=== PATIENT | female | born 1955 | race Caucasian/White ===

== ENCOUNTER 2016-09-06 13:37 | Inpatient (IN) | payer MEDICARE, OTHER ==
[~2016-09-06] VITALS: Ht 170.2 cm; Wt 74.5 kg
[2016-09-06] VITALS (7 sets, daily range): BP systolic 115–140; BP diastolic 60–82; PULSE 85–109; RESP 16–18; TEMP 97.9–98.4; O2SAT 95–98
[~2016-09-06 13:37] MED LIST: APIX5TAB PO; COQ-100C2 PO; HYDR12.57 PO; KRIL300C3 PO; LEVO150T7 PO; METF500T PO; MULTCAP PO; PLAQ200T PO; SIMV20TA PO; VALA1TAB PO
[2016-09-06] MEDS ORDERED: BUPR150XL PO (14:00)
[2016-09-06] MEDS ORDERED: PLAV75TA29 PO (14:00)
[2016-09-06] MEDS ORDERED: [UNRECOGNIZED DRUG - REMARK] PO (14:02)
[2016-09-06] MEDS ORDERED: SODIUM CHLORIDE 0.9% FLUSH 5 ML FLUSH IVF PRN (14:30)
[2016-09-06 14:39] LABS: AUTOMATED NEUTROPHIL # 4.3 TH/MM3 (1.8-7.7); BASOPHIL % 0.7 % (0.0-2.0); EOSINOPHIL # 0.1 TH/MM3 (0-0.4); EOSINOPHIL % 2.1 % (0.0-4.0); HEMO FLAGS DIFF FINAL; LYMPH % 23.8 % (9.0-44.0); LYMPHOCYTE # 1.5 TH/MM3 (1.0-4.8); MEAN CORPUSCULAR HEMOGLOBIN 31.6 PG (27.0-34.0); MEAN CORPUSCULAR HGB CONC 33.6 % (32.0-36.0); MONO % 8.4 % (0.0-8.0); PLATELET COUNT 309 TH/MM3 (150-450); RED BLOOD COUNT 4.67 MIL/MM3 (4.00-5.30); RED CELL DISTRIBUTION WIDTH 12.6 % (11.6-17.2); WHITE BLOOD COUNT 6.4 TH/MM3 (4.0-11.0)
[2016-09-06 14:52] LABS: POTASSIUM 3.7 MEQ/L (3.5-5.1)
[2016-09-06 14:56] LABS: BICARBONATE 25.9 MEQ/L (21.0-32.0)
[2016-09-06] MEDS ORDERED: LORazepam 2 MG/ML VIAL IV PUSH ONE (15:00)
--- NOTE | 2016-09-06 15:03 | PD ---
HPI . Left lower extremity pain and swelling Chief Complaint: Musculoskeletal Complaint Time Seen by Provider: 14:20 Travel History International Travel<30 days: No Contact w/Intl Traveler<30days: No Traveled to known affect area: No History of Present Illness HPI The patient presents with the acute onset of left leg pain. Her medical history is significant for previous arterial and venous thrombosis. She reports that she underwent a surgical procedure at the [facility] in July to both lower extremities to remove clot and improve blood flow. She reports that she had been on Elavil was prior to the procedure but was changed to Plavix following the procedure. She does not take aspirin. She does admit to some chest pain and shortness of breath. She states that she has been having these symptoms since the surgery in July. PFSH Past Medical History Hx Anticoagulant Therapy: Yes (PLAVIX) Arthritis: Yes Asthma: Yes Atrial Fibrillation: Yes Autoimmune Disease: Yes (LUPUS) Blood Disorders: No Anxiety: Yes Depression: Yes Heart Rhythm Problems: Yes Cancer: Yes (HX OF CERVICAL CANCER AND OVARIAN CANCER, SKIN) Cardiac Catheterization: Yes Cardiovascular Problems: Yes (CAD, ID X 4, THREE CARDIAC STENTS) High Cholesterol: Yes Chemotherapy: No Chest Pain: Yes Congestive Heart Failure: Yes COPD: Yes Cerebrovascular Accident: Yes (x4) Coronary Artery Disease: Yes Diabetes: Yes Patient Takes Glucophage: Yes Diminished Hearing: No Endocrine: Yes Gastrointestinal Disorders: Yes (LIVER FAILURE DUE MEDS ) GERD: Yes Genitourinary: No Headaches: Yes Hepatitis: Yes (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) Hiatal Hernia: Yes Hypertension: Yes Immune Disorder: Yes (LUPUS FIBROMYALGIA) Implanted Vascular Access Dvce: Yes Musculoskeletal: Yes Neurologic: Yes Psychiatric: Yes (ADD) Reproductive: No Respiratory: Yes (ASTHMA, 02/28/07 STOPPED SMOKING) Migraines: Yes Myocardial Infarction: Yes (X 3) Radiation Therapy: No Seizures: No Sleep Apnea: No Thyroid Disease: Yes (HYPO) Triglycerides - High: Yes Ulcer: Yes Tetanus Vaccination: > 5 Years Influenza Vaccination: Yes Menopausal: Yes : 5 Para: 2 Miscarriage: 3 : 0 Past Surgical History Abdominal Surgery: Yes (lap marnie liver bx) Appendectomy: Yes Body Medical Devices: X3 CARDIAC STENTS AND MIGUEL LOWER EXT. STENTS Cardiac Surgery: Yes (x3 cardiac stents) Cholecystectomy: Yes Coronary Artery Bypass Graft: No Coronary Stent: Yes (X7) Ear Surgery: No Endocrine Surgery: No Eye Surgery: Yes (MIGUEL. UPPER BLEPHAROPLASTY) Genitourinary Surgery: Yes Gynecologic Surgery: Yes (hysterectomy) Hysterectomy: Yes Neurologic Surgery: Yes (lower back L4-5, S1 X 3) Oral Surgery: Yes (tonsillectomy) Pacemaker: No Thoracic Surgery: No Tonsillectomy: Yes Other Surgery: Yes (LEFT LEG BYPASS) Family History Family Myocardial Infarction: Yes Social History Alcohol Use: Yes (rarely) Tobacco Use: No Substance Use: No Allergies-Medications (Allergen,Severity, Reaction): Coded Allergies: Benzocaine (Verified Allergy, Severe, SHORTNESS OF BREATH - "CHANDU", ) Codeine (Verified Allergy, Severe, ITCHY, 09/06/16) Iodinated Contrast Media (Verified Allergy, Severe, SOB, 09/06/16) Iodine (Verified Allergy, Severe, SOB, 09/06/16) IV pt states anaphylaxis Lidocaine (Verified Allergy, Severe, Shortness of Breath, 09/06/16) Lisinopril (Verified Allergy, Severe, causes liver failure, 09/06/16) Lortab (Verified Allergy, Severe, ITCH, 09/06/16) pt states oral injectable type causes anaphylaxis Lovastatin (Verified Allergy, Severe, LIVER FAILURE, 09/06/16) Morphine (Verified Allergy, Severe, ITCHY, 09/06/16) Novocain (Verified Allergy, Severe, Anaphylaxis, 09/06/16) Tricor (Verified Allergy, Severe, Cough, 09/06/16) Tylenol #3 (Verified Allergy, Severe, Itching, 09/06/16) Reported Meds & Prescriptions Reported Meds & Active Scripts Active Reported [Chf] 1 Tab PO BID Wellbutrin Xl 24 HR (Bupropion HCl) 150 Mg Tab 3 Tab PO DAILY Plavix (Clopidogrel Bisulfate) 75 Mg Tab 75 Mg PO DAILY Hydrochlorothiazide 12.5 Mg Cap 12.5 Mg PO DAILY Plaquenil (Hydroxychloroquine Sulfate) 200 Mg Tab 200 Mg PO DAILY Take with food Krill Oil [place]-3 300 mg (Krill Oil) 1 Cap Cap 300 Mg PO DAILY Levothyroxine (Levothyroxine Sodium) 150 Mcg Tab 150 Mcg PO DAILY Simvastatin 20 Mg Tab 20 Mg PO DAILY Valacyclovir (Valacyclovir HCl) 1 Gm Tab 1,000 Mg PO DAILY Multi For Her (Multiple Vitamins W/ Minerals) 1 Cap Cap 1 Tab PO DAILY Metformin (Metformin HCl) 500 Mg Tab 500 Mg PO DAILY With a meal Coq-10 (Coenzyme Q10 (Ubidecarenone)) 100 Mg Cap 100 Mg PO DAILY Review of Systems Except as stated in HPI: all other systems reviewed are Neg General / Constitutional: No: Fever, Chills Cardiovascular: Positive: Chest Pain or Discomfort Respiratory: Positive: Shortness of Breath Musculoskeletal: Positive: Myalgias, Edema Hematologic/Lymphatic: Positive: Easy Bruising Physical Exam Narrative GENERAL: This is an anxious appearing woman who is otherwise in no acute distress. SKIN: Warm and dry. She has some scattered bruising to the lower extremities. HEAD: Atraumatic. Normocephalic. EYES: Pupils equal and round. ENT: No nasal bleeding or discharge. Mucous membranes pink and moist. NECK: Trachea midline. CARDIOVASCULAR: Regular rate and rhythm. Mild sinus tachycardia at about 105- 110. Equal distal pulses. RESPIRATORY: No accessory muscle use. GASTROINTESTINAL: Abdomen soft, non-tender, nondistended. MUSCULOSKELETAL: No obvious deformities. No edema. NEUROLOGICAL: Awake and alert. No obvious cranial nerve deficits. Motor grossly within normal limits. Normal speech. PSYCHIATRIC: Appropriate mood and affect; insight and judgment normal. Anxious. Data Data Last Documented VS Vital Signs Date Time Temp Pulse Resp B/P Pulse Ox O2 Delivery O2 Flow Rate FiO2 09/06/16 15:36 96 17 140/65 98 Room Air 09/06/16 13:42 97.9 Orders Us Leg Venous Doppler (09/06/16 14:20) Complete Blood Count With Diff (09/06/16 14:20) Basic Metabolic Panel (Bmp) (09/06/16 14:20) Iv Access Insert/Monitor (09/06/16 14:20) Ecg Monitoring (09/06/16 14:20) Oximetry (09/06/16 14:20) Oxygen Administration (09/06/16 14:20) Sodium Chloride 0.9% Flush (Ns Flush) (09/06/16 14:30) Lorazepam Inj (Ativan Inj) (09/06/16 15:00) Labs Laboratory Tests Test 09/06/16 14:30 White Blood Count 6.4 TH/MM3 Red Blood Count 4.67 MIL/MM3 Hemoglobin 14.8 GM/DL Hematocrit 44.0 % Mean Corpuscular Volume 94.0 FL Mean Corpuscular Hemoglobin 31.6 PG Mean Corpuscular Hemoglobin 33.6 % Concent Red Cell Distribution Width 12.6 % Platelet Count 309 TH/MM3 Mean Platelet Volume 7.8 FL Neutrophils (%) (Auto) 65.0 % Lymphocytes (%) (Auto) 23.8 % Monocytes (%) (Auto) 8.4 % Eosinophils (%) (Auto) 2.1 % Basophils (%) (Auto) 0.7 % Neutrophils # (Auto) 4.3 TH/MM3 Lymphocytes # (Auto) 1.5 TH/MM3 Monocytes # (Auto) 0.5 TH/MM3 Eosinophils # (Auto) 0.1 TH/MM3 Basophils # (Auto) 0.0 TH/MM3 CBC Comment DIFF FINAL Differential Comment Sodium Level 142 MEQ/L Potassium Level 3.7 MEQ/L Chloride Level 107 MEQ/L Carbon Dioxide Level 25.9 MEQ/L Anion Gap 9 MEQ/L Blood Urea Nitrogen 12 MG/DL Creatinine 0.99 MG/DL Estimat Glomerular Filtration 57 ML/MIN Rate Random Glucose 122 MG/DL Calcium Level 8.9 MG/DL MDM Medical Decision Making Medical Screen Exam Complete: Yes Emergency Medical Condition: Yes Medical Record Reviewed: Yes (this patient has had significant cardiovascular problems. She has had a previous stroke. She has also had previous coronary artery disease and is status post stent placement. She has had peripheral vascular disease and is status post several surgical procedures for that. She was most recently seen by Dr. Greenberg, hematology oncology, on January 10, 2016. His plan at that time was to continue lifelong anticoagulation probably with Eliquis.) Differential Diagnosis Differential diagnosis of leg pain includes but is not limited to lumbar radiculopathy, arthritis, myalgias, DVT. Narrative Course Patient presents for evaluation of leg pain. She is specifically worried about DVT or arterial occlusion. Ultrasound of her left lower extremity was ordered. Because of her complaint of chest pain and shortness of breath for the past month or so, I also ordered a CT for PE. However, the patient has anaphylaxis to dye. That study was canceled. We will start with the ultrasound and go from there. The patient was noted to be quite anxious. I suspect that her chest pain and shortness of breath is probably related to anxiety. Her initial respiratory rate was 16 with an oxygen saturation of 98%. CBC & BMP Diagram 09/06/16 14:30 Ultrasound is negative for DVT. This patient has had some significant arterial clots in the past. She has anaphylaxis to IV dye. She states that she is is generally premedicated with steroids for 12 hours and then Benadryl 2 hours prior to a dye study. I will discuss the case with the physician who is balloon sander for her primary physician to come up with a plan. Care is being signed out to Dr. Uriarte pending disposition. Diagnosis Primary Impression: Left leg pain Condition: Stable Nica Muhammad MD Sep 06, 2016 15:03
--- NOTE | 2016-09-06 15:25 | RADHPO ---
EXAM DATE/TIME: 09/06/2016 19:41 [facility] COMPARISON: No previous studies available for comparison. INDICATIONS : Left leg pain. MEDICAL HISTORY : Myocardial infarction. Hypercholesterolemia. Hypertension. Hypothyroidism. CVA. Coroanry artery di sease. Congetive heart failure. Atrial fibrillation. COPD. GERD. Diabetes. Cervical, ovarian and ski n cancer. Lupus. SURGICAL HISTORY : Tonsillectomy. Cholecystectomy. Appendectomy. Spinal surgery. Coronary stents. Cardiac catheterizati on. Liver biopsy. Hysterectomy. Left leg bypass. ENCOUNTER: Initial ACUITY: 1 day PAIN SCORE: 4/10 LOCATION: Left leg. TECHNIQUE: Venous ultrasound of the leg was performed from the inguinal ligament to the proximal calf. Real-zaira e, color Doppler and spectral tracing, compression and augmentation techniques were used. FINDINGS: There is normal compressibility of the deep venous system from the inguinal region to the proximal ca lf. No echogenic clot is seen in the lumen of the common femoral, femoral, popliteal, and posterior tibial veins. There is a normal response of the venous system to proximal and distal augmentation an d respiration. CONCLUSION: No DVT in the left leg. Bill Joshi MD on September 06, 2016 at 15:23 Board Certified Radiologist. This report was verified electronically.
[2016-09-06] MEDS ORDERED: CILO100T PO (16:33)
--- NOTE | 2016-09-06 16:43 | PD ---
Physical Exam Date Seen by Provider: Sep 06, 2016 Time Seen by Provider: 16:36 Narrative This 61-year-old female complaining of pain in her left foot. This pain started this morning and seems to be getting progressively worse. The foot is feeling cold. It hurts her to walk on it. She has a history of multiple vascular problems. She has had arterial occlusions in her legs as well as DVT. She has a history of a stroke. She has been on Coumadin and Eliquis in the past. She is currently on Plavix. She was seen initially by Dr. Muhammad. An ultrasound for DVT was negative. The patient has a history of anaphylaxis to contrast dye. Apparently when she was initially seen in the ER she was noted to have pulses on the foot though the foot was cooler on the left than the right. I went to see the patient and have noticed the change in temperature. I am unable to obtain dorsalis pedal and posterior tibial pulses by palpation or with the Doppler. I am able to obtain a a popliteal and femoral pulse. She is able to wiggle the toes. I have discussed the case with Dr. Mary and he asked that she be transferred to [facility] to his service. We will initiate heparin drip without bolus. I have ordered pain medication. I have also we'll initiate Solu-Medrol for premedication in the event she gets contrast material.. This is a potentially limb threatening episode so I'm giving the Solu-Medrol intravenously as opposed to the oral prednisone. Data Data Last Documented VS Vital Signs Date Time Temp Pulse Resp B/P Pulse Ox O2 Delivery O2 Flow Rate FiO2 09/06/16 15:36 96 17 140/65 98 Room Air 09/06/16 13:42 97.9 Orders Us Leg Venous Doppler (09/06/16 14:20) Complete Blood Count With Diff (09/06/16 14:20) Basic Metabolic Panel (Bmp) (09/06/16 14:20) Iv Access Insert/Monitor (09/06/16 14:20) Ecg Monitoring (09/06/16 14:20) Oximetry (09/06/16 14:20) Oxygen Administration (09/06/16 14:20) Sodium Chloride 0.9% Flush (Ns Flush) (09/06/16 14:30) Lorazepam Inj (Ativan Inj) (09/06/16 15:00) Electrocardiogram (09/06/16 16:16) Chest, Single Ap (09/06/16 16:16) Prothrombin Time / Inr (Pt) (09/06/16 16:19) Act Partial Throm Time (Ptt) (09/06/16 16:19) Admit Order (Ed Use Only) (09/06/16 16:31) Labs Laboratory Tests Test 09/06/16 14:30 White Blood Count 6.4 TH/MM3 Red Blood Count 4.67 MIL/MM3 Hemoglobin 14.8 GM/DL Hematocrit 44.0 % Mean Corpuscular Volume 94.0 FL Mean Corpuscular Hemoglobin 31.6 PG Mean Corpuscular Hemoglobin 33.6 % Concent Red Cell Distribution Width 12.6 % Platelet Count 309 TH/MM3 Mean Platelet Volume 7.8 FL Neutrophils (%) (Auto) 65.0 % Lymphocytes (%) (Auto) 23.8 % Monocytes (%) (Auto) 8.4 % Eosinophils (%) (Auto) 2.1 % Basophils (%) (Auto) 0.7 % Neutrophils # (Auto) 4.3 TH/MM3 Lymphocytes # (Auto) 1.5 TH/MM3 Monocytes # (Auto) 0.5 TH/MM3 Eosinophils # (Auto) 0.1 TH/MM3 Basophils # (Auto) 0.0 TH/MM3 CBC Comment DIFF FINAL Differential Comment Prothrombin Time 10.7 SEC Prothromb Time International 1.0 RATIO Ratio Activated Partial 26.2 SEC Thromboplast Time Sodium Level 142 MEQ/L Potassium Level 3.7 MEQ/L Chloride Level 107 MEQ/L Carbon Dioxide Level 25.9 MEQ/L Anion Gap 9 MEQ/L Blood Urea Nitrogen 12 MG/DL Creatinine 0.99 MG/DL Estimat Glomerular Filtration 57 ML/MIN Rate Random Glucose 122 MG/DL Calcium Level 8.9 MG/DL [facility] Medical Record Reviewed: Yes Supervised Visit with SHIRAZ: No Differential Diagnosis Differential includes recurrent arterial occlusion, DVT Narrative Course Ultrasound is negative for DVT. Patient initially had a pulse but I cannot feel pulses now on the foot is cold. This is suspicious for an arterial occlusion. We are unable to do a CTA at this time because of her contrast allergy. I have spoken with vascular surgery and they've accepted the patient to the main hospital Diagnosis Primary Impression: Left leg pain Additional Impression: arterial occlusion left leg Admitting Information Admitting Physician Requests: Admit Condition: Stable Avinash Uriarte MD Sep 06, 2016 16:43
[2016-09-06] MEDS: SODIUM CHLOR 0.9% 1000 ML INJ 1,000 ML IV SCH (16:44)
[2016-09-06] MEDS ORDERED: HEPARIN-D5W INJ 250 ML IV SCH (16:45)
[2016-09-06] MEDS ORDERED: HYDROmorphone HCL PF 1 MG/ML VIAL IV PUSH ONE (16:45)
[2016-09-06] MEDS ORDERED: diphenhydrAMINE HCL 50 MG/ML VIAL IV PUSH ONE (16:45)
[2016-09-06] MEDS ORDERED: ONDANSETRON HCL 4 MG/2 ML VIAL IV PUSH ONE (16:45)
[2016-09-06] MEDS ORDERED: methylPREDNISolone SOD SUCC 40 MG/1 ML VIAL IV PUSH ONE (16:45)
--- NOTE | 2016-09-06 16:57 | RADHPO ---
EXAM DATE/TIME: 09/06/2016 16:39 [facility] COMPARISON: No previous studies available for comparison. INDICATIONS : Shortness of breath. MEDICAL HISTORY : Hypertension. Myocardial infarction. Hypercholesterolemia. Hypothyroidism, CVA, CAD, CHF, AFIB, C OPD, GERD, Diabetes, Cervical, ovarian, and skin cancer, Lupus SURGICAL HISTORY : Tonsillectomy. Cholecystectomy. Appendectomy. Spinal surgery, Heart stent, Liver biopsy, Hysterectomy , Left leg bypass ENCOUNTER: Initial ACUITY: 1 day PAIN SCORE: 4/10 LOCATION: Bilateral chest FINDINGS: A single view of the chest demonstrates the lungs to be symmetrically aerated without evidence of mas s, infiltrate or effusion. The cardiomediastinal contours are unremarkable. Osseous structures are intact. CONCLUSION: No acute disease. Brock Liu MD FACR on September 06, 2016 at 16:55 Board Certified Radiologist. This report was verified electronically.
[2016-09-06 17:15] LABS: APTT (PATIENT) 26.2 SEC (24.3-30.1); PROTHROMBIN TIME - PATIENT 10.7 SEC (9.8-11.6)
[2016-09-06] MEDS ORDERED: SODIUM CHLORIDE 0.9% FLUSH 5 ML FLUSH IV FLUSH PRN (21:15)
--- NOTE | 2016-09-06 21:16 | HHI.HP ---
History of Present Illness Chief Complaint: L foot pain History of Present Illness 61 yo female with multiple vascular and endovascular procedures for PAD, most recently in Jul when she had LLE revascularization (endo) for "5 hours" . She was getting ready for work this morning and had L foot pain. Motor intact. Presented through ED with pain. Past/Family/Social History Past Medical History PAD CVOD with last CVA 10 years ago CAD with last AL in her 30's Past Surgical History marnie mastectomy Home Medications Reported Medications Cilostazol 100 Mg [id number] Mg PO BID Ref 0 09/06/16 Bupropion HCl ER 24 HR (Wellbutrin Xl 24 HR)150 Mg Tab3 Tab PO DAILY Ref 0 09/06/16 Clopidogrel (Plavix)75 Mg Tab75 Mg PO DAILY #30 TAB Ref 0 09/06/16 Hydrochlorothiazide 12.5 Mg Cap12.5 Mg PO DAILY #30 CAP Ref 0 06/18/16 Hydroxychloroquine (Plaquenil)200 Mg [id number] Mg PO DAILY #30 TAB Ref 0 Take with food 06/18/16 Krill Oil (Krill Oil [employer]-3 300 mg)1 Cap [id number] Mg PO DAILY 06/18/16 Levothyroxine 150 Mcg Akj586 Mcg PO DAILY #30 TAB Ref 0 06/18/16 Simvastatin 20 Mg Tab20 Mg PO DAILY #30 TAB Ref 0 06/18/16 Valacyclovir 1 Gm Tab1,000 Mg PO DAILY #30 TAB Ref 0 06/18/16 Multiple Vitamins W/ Minerals (Multi For Her)1 Cap Cap1 Tab PO DAILY 06/18/16 Metformin 500 Mg [id number] Mg PO DAILY #30 TAB Ref 0 With a meal 06/18/16 Coenzyme Q10 (Ubidecarenone) (Coq-10)100 Mg Iil530 Mg PO DAILY 06/18/16 Discontinued Reported Medications [Chf] No Conflict Check1 Tab PO BID 09/06/16 Apixaban (Eliquis)5 Mg Tab5 Mg PO BID #60 TAB Ref 0 06/18/16 Coded Allergies: Benzocaine (Verified Allergy, Severe, SHORTNESS OF BREATH - "CHANDU", ) Codeine (Verified Allergy, Severe, ITCHY, 09/06/16) Iodinated Contrast Media (Verified Allergy, Severe, SOB, 09/06/16) Iodine (Verified Allergy, Severe, SOB, 09/06/16) IV pt states anaphylaxis Lidocaine (Verified Allergy, Severe, Shortness of Breath, 09/06/16) Lisinopril (Verified Allergy, Severe, causes liver failure, 09/06/16) Lortab (Verified Allergy, Severe, ITCH, 09/06/16) pt states oral injectable type causes anaphylaxis Lovastatin (Verified Allergy, Severe, LIVER FAILURE, 09/06/16) Morphine (Verified Allergy, Severe, ITCHY, 09/06/16) Novocain (Verified Allergy, Severe, Anaphylaxis, 09/06/16) Tricor (Verified Allergy, Severe, Cough, 09/06/16) Tylenol #3 (Verified Allergy, Severe, Itching, 09/06/16) Review of Systems Cardiovascular: COMPLAINS OF: Lower Extremity Edema, Orthopnea, DENIES: Chest pain, Claudication Gastrointestinal: COMPLAINS OF: Diarrhea, Anorexia, DENIES: Abdominal pain Musculoskeletal: COMPLAINS OF: Joint pain Physical Exam Vitals/I&O Date Time Temp Pulse Resp B/P Pulse Ox O2 Delivery O2 Flow Rate FiO2 09/06/16 18:21 90 17 126/68 97 Room Air 09/06/16 16:47 93 17 132/71 96 Room Air 09/06/16 15:36 96 17 140/65 98 Room Air 09/06/16 14:42 96 Room Air 09/06/16 14:42 96 Room Air 09/06/16 13:42 97.9 109 16 120/82 98 Neuro: resting comfortably, no distress, talks with [place] accent since last CVA HEENT: NC/AT Neck: no JVD Heart: reg rate Lungs: unlabored breathing Abdomen: nontender, no abdominal incisions Vascular: no L femoral pulse that I can appreciate + R PT Extremities: MANN, good strength L foot cooler than R Laboratory Tests Test 09/06/16 14:30 White Blood Count 6.4 Red Blood Count 4.67 Hemoglobin 14.8 Hematocrit 44.0 Mean Corpuscular Volume 94.0 Mean Corpuscular Hemoglobin 31.6 Mean Corpuscular Hemoglobin 33.6 Concent Red Cell Distribution Width 12.6 Platelet Count 309 Mean Platelet Volume 7.8 Neutrophils (%) (Auto) 65.0 Lymphocytes (%) (Auto) 23.8 Monocytes (%) (Auto) 8.4 Eosinophils (%) (Auto) 2.1 Basophils (%) (Auto) 0.7 Neutrophils # (Auto) 4.3 Lymphocytes # (Auto) 1.5 Monocytes # (Auto) 0.5 Eosinophils # (Auto) 0.1 Basophils # (Auto) 0.0 CBC Comment DIFF FINAL Differential Comment Prothrombin Time 10.7 Prothromb Time International 1.0 Ratio Activated Partial 26.2 Thromboplast Time Sodium Level 142 Potassium Level 3.7 Chloride Level 107 Carbon Dioxide Level 25.9 Anion Gap 9 Blood Urea Nitrogen 12 Creatinine 0.99 Estimat Glomerular Filtration 57 Rate Random Glucose 122 Calcium Level 8.9 Last 48 hours Impressions Chest X-Ray 09/06/16 1616 Signed Impressions: Service Date/Time: Tuesday, September 06, 2016 16:39 - CONCLUSION: No acute disease. Brock Liu MD FACR Lower Extremity Ultrasound 09/06/16 1420 Signed Impressions: Service Date/Time: Tuesday, September 06, 2016 19:41 - CONCLUSION: No DVT in the left leg. Bill Jsohi MD Assessment and Plan Plan Likely failed endovascular therapy of L LE, motor intact plan for heparin gtt, ABIs and CT after steroid prep Jamari Mary MD Sep 06, 2016 21:16
[2016-09-06] MEDS ORDERED: PILL SPLITTER OTHER PRN (21:30)
[2016-09-06] MEDS ORDERED: predniSONE 50 MG TAB PO ONE (21:30)
[2016-09-07] VITALS (17 sets, daily range): BP systolic 113–145; BP diastolic 55–70; PULSE 77–95; RESP 18–24; TEMP 97.3–98.7; O2SAT 96–97
[2016-09-07 01:10] LABS: HEMATOCRIT 39.3 % (35.0-46.0); MEAN CORPUSCULAR HEMOGLOBIN 32.5 PG (27.0-34.0); MEAN CORPUSCULAR HGB CONC 34.6 % (32.0-36.0); PLATELET COUNT 276 TH/MM3 (150-450); RED BLOOD COUNT 4.18 MIL/MM3 (4.00-5.30); RED CELL DISTRIBUTION WIDTH 13.4 % (11.6-17.2); REVIEW FLAG FINAL; WHITE BLOOD COUNT 5.3 TH/MM3 (4.0-11.0)
[2016-09-07 01:20] LABS: APTT (PATIENT) 52.2 SEC (24.3-30.1)
[2016-09-07 01:30] LABS: BICARBONATE 24.7 MEQ/L (21.0-32.0); POTASSIUM 3.8 MEQ/L (3.5-5.1)
[2016-09-07 04:26] LABS: APTT (PATIENT) 70.7 SEC (24.3-30.1)
[2016-09-07] MEDS ORDERED: predniSONE 50 MG TAB PO ONE ×2 (05:30→13:30)
[2016-09-07 08:04] LABS: APTT (PATIENT) 80.5 SEC (24.3-30.1)
[2016-09-07] MEDS ORDERED: KRILL OIL PO SCH (09:00)
[2016-09-07] MEDS: METOPROLOL TARTRATE 25 MG TAB PO SCH ×2 (09:00→21:00)
[2016-09-07] MEDS: metFORMIN HCL 500 MG TAB PO SCH (09:00)
[2016-09-07] MEDS ORDERED: NON-FORMULARY DRUG (Coenzyme Q10 (Ubidecarenone) (Coq-10) 100 MG) PO SCH (09:00)
--- NOTE | 2016-09-07 09:04 | PD.VS.PN ---
Subjective Subjective/Hospital Course Pt admitted with likely acute on chronic L LE arterial occlusion. Pain controlled overnight and able to walk. On hep gtt. Motor remains intact. Objective Vitals/I&O Date Time Temp Pulse Resp B/P Pulse Ox O2 Delivery O2 Flow Rate FiO2 09/07/16 04:00 98.4 81 20 118/55 96 09/07/16 02:00 79 09/07/16 00:00 84 09/07/16 00:00 98.2 87 18 113/61 96 09/06/16 22:00 85 09/06/16 20:00 98.4 86 18 115/60 95 09/06/16 20:00 86 09/06/16 18:21 90 17 126/68 97 Room Air 09/06/16 16:47 93 17 132/71 96 Room Air 09/06/16 15:36 96 17 140/65 98 Room Air 09/06/16 14:42 96 Room Air 09/06/16 14:42 96 Room Air 09/06/16 13:42 97.9 109 16 120/82 98 Physical Exam B feet warm, no tissue loss, perfused. Motor intact. Laboratory Laboratory Tests Test 09/06/16 09/07/16 09/07/16 09/07/16 14:30 00:20 03:33 07:36 White Blood Count 6.4 5.3 Red Blood Count 4.67 4.18 Hemoglobin 14.8 13.6 Hematocrit 44.0 39.3 Mean Corpuscular Volume 94.0 94.0 Mean Corpuscular Hemoglobin 31.6 32.5 Mean Corpuscular Hemoglobin 33.6 34.6 Concent Red Cell Distribution Width 12.6 13.4 Platelet Count 309 276 Mean Platelet Volume 7.8 8.5 Neutrophils (%) (Auto) 65.0 Lymphocytes (%) (Auto) 23.8 Monocytes (%) (Auto) 8.4 Eosinophils (%) (Auto) 2.1 Basophils (%) (Auto) 0.7 Neutrophils # (Auto) 4.3 Lymphocytes # (Auto) 1.5 Monocytes # (Auto) 0.5 Eosinophils # (Auto) 0.1 Basophils # (Auto) 0.0 CBC Comment DIFF FINAL Differential Comment Prothrombin Time 10.7 Prothromb Time International 1.0 Ratio Activated Partial 26.2 52.2 70.7 80.5 Thromboplast Time Sodium Level 142 143 Potassium Level 3.7 3.8 Chloride Level 107 108 Carbon Dioxide Level 25.9 24.7 Anion Gap 9 10 Blood Urea Nitrogen 12 12 Creatinine 0.99 1.02 Estimat Glomerular Filtration 57 55 Rate Random Glucose 122 186 Calcium Level 8.9 8.9 Imaging Last 48 hours Impressions Chest X-Ray 09/06/16 1616 Signed Impressions: Service Date/Time: Tuesday, September 06, 2016 16:39 - CONCLUSION: No acute disease. Brock Liu MD FACR Lower Extremity Ultrasound 09/06/16 1420 Signed Impressions: Service Date/Time: Tuesday, September 06, 2016 19:41 - CONCLUSION: No DVT in the left leg. Bill Joshi MD Assessment and Plan Plan Likely failed endovascular therapy of L LE, motor intact Continue hep gtt CTA today - getting premedicated for contrast allergy. In the past, she has been premedicated and tolerated IV contrast without any sequelae - most recently in Jul. ABIs and UE/LE vein survey. Jamrai Mary MD Sep 07, 2016 09:04
[2016-09-07] MEDS ORDERED: CILO100T PO (09:58)
[2016-09-07] MEDS ORDERED: buPROPion HCL 150 MG SUSTAINED RELEASE TAB PO SCH (10:00)
[2016-09-07] MEDS: PANTOPRAZOLE SOD 40 MG DELAYED RELEASE TAB PO SCH (12:05)
[2016-09-07] MEDS: ASPIRIN 81 MG CHEW TAB PO SCH (12:05)
[2016-09-07] MEDS: LEVOTHYROXINE SODIUM 150 MCG TAB PO SCH (12:05)
[2016-09-07] MEDS: HYDROXYCHLOROQUINE SULFATE 200 MG TAB PO SCH (12:06)
[2016-09-07] MEDS: valACYclovir HCL 500 MG TAB PO SCH (12:06)
[2016-09-07] MEDS: MULTIVITAMINS/MINERALS THERAPEUTIC TAB PO SCH (12:07)
[2016-09-07] MEDS: HEPARIN-D5W INJ 250 ML IV SCH (12:10)
[2016-09-07] MEDS: SODIUM CHLOR 0.9% 1000 ML INJ 1,000 ML IV SCH ×2 (12:45→22:45)
[2016-09-07] MEDS ORDERED: diphenhydrAMINE HCL 50 MG CAP PO ONE (13:30)
--- NOTE | 2016-09-07 14:51 | RADRPT ---
EXAM DATE/TIME: 09/07/2016 13:08 [facility] COMPARISON: No previous studies available for comparison. INDICATIONS : Bypass. MEDICAL HISTORY : Hypercholesterolemia. Carcinoma, uterine. Ectopic . Borderline diabetes. Anticoagulant the rapy, Plavix. Depression. Anxiety. Previous suicide attempt. SURGICAL HISTORY : Tonsillectomy.Cholecystectomy. Appendectomy.Fallopian tube removal. Hysterectomy. Right ring finger s urgery. Chemotherapy. Radiation therapy. ENCOUNTER: Initial ACUITY: 2 day PAIN SCORE: 5/10 LOCATION: Bilateral arm. FINDINGS: RIGHT UPPER EXTREMITY: There is spontaneous flow documented in the brachial, basilic, cephalic, axillary, and subclavian vei ns. The vessels are compressible and augmentation response is documented. No filling defects are se en. The flow is phasic with respiration. Direction of flow in the jugular vein is caudal. LEFT UPPER EXTREMITY: There is spontaneous flow documented in the brachial, basilic, cephalic, axillary, and subclavian vei ns. The vessels are compressible and augmentation response is documented. No filling defects are se en. The flow is phasic with respiration. Direction of flow in the jugular vein is caudal. CONCLUSION: No DVT is identified within either upper extremity. Reji Daley MD on September 07, 2016 at 14:49 Board Certified Radiologist. This report was verified electronically.
--- NOTE | 2016-09-07 14:56 | RADRPT ---
EXAM DATE/TIME: 09/07/2016 12:40 [facility] COMPARISON: US LEG RIGHT VENOUS DOPPLER, December 07, 2015, 15:39. INDICATIONS : Bypass. MEDICAL HISTORY : Hypercholesterolemia. Carcinoma, uterine. Ectopic . Borderline diabetes. Anticoagulant therapy. Depression. Anxiety. Previous suicide attempt. SURGICAL HISTORY : Tonsillectomy. Cholecystectomy. Appendectomy. Fallopian tube removal. Hysterectomy. Right ring finge r surgery. Chemotherapy. Radiation therapy. ENCOUNTER: Initial ACUITY: 2 day PAIN SCORE: 5/10 LOCATION: Right leg. TECHNIQUE: Venous ultrasound of the leg was performed from the inguinal ligament to the proximal calf. Real-zaira e, color Doppler and spectral tracing, compression and augmentation techniques were used. FINDINGS: There is normal compressibility of the deep venous system from the inguinal region to the proximal ca lf. No echogenic clot is seen in the lumen of the common femoral, femoral, popliteal, and posterior tibial veins. There is a normal response of the venous system to proximal and distal augmentation an d respiration. CONCLUSION: No DVT is identified within the right lower extremity. Reji Daley MD on September 07, 2016 at 14:54 Board Certified Radiologist. This report was verified electronically.
--- NOTE | 2016-09-07 15:03 | RADRPT ---
EXAM DATE/TIME: 09/07/2016 12:55 [facility] COMPARISON: No previous studies available for comparison. INDICATIONS : Bypass. MEDICAL HISTORY : Hypercholesterolemia. Carcinoma, uterine. Ectopic . Borderline diabetes. Anticoagulant the rapy. Depression. Anxiety. Previous suicide attempt. SURGICAL HISTORY : Tonsillectomy. Appendectomy. Cholecystectomy. Fallopian tube removal. Hysterectomy. Right ring finger surgery. Chemotherapy. Radiation therapy. ENCOUNTER: Initial ACUITY: 2 day PAIN SCORE: 5/10 LOCATION: Bilateral leg. GREATER SAPHENOUS VEIN THIGH: PROXIMAL: Right 5 mm Left 4 mm MID: Right 5 mm Left 3 mm DISTAL: Right 4 mm Left 3 mm CALF: PROXIMAL: Right 2 mm Left 2 mm MID: Right 1 mm Left 2 mm DISTAL: Right 2 mm Left 2 mm FINDINGS: The venous system of the lower extremities are patent by color Doppler imaging. Measurements of the leg veins (in mm) are listed above. CONCLUSION: Lower extremity venous mapping performed, as above. Reji Daley MD on September 07, 2016 at 15:01 Board Certified Radiologist. This report was verified electronically.
--- NOTE | 2016-09-07 15:04 | RADRPT ---
EXAM DATE/TIME: 09/07/2016 13:22 [facility] COMPARISON: No previous studies available for comparison. INDICATIONS : Bypass. MEDICAL HISTORY : Hypercholesterolemia. Carcinoma, uterine. Ectopic . Borderline diabetes. Anticoagulant the rapy. Depression. Anxiety. Previous suicide attempt. SURGICAL HISTORY : Tonsillectomy. Appendectomy. Cholecystectomy. Fallopian tube removal. Hysterectomy. Right ring finger surgery. Chemotherapy. Radiation therapy. ENCOUNTER: Initial ACUITY: 2 day PAIN SCORE: 5/10 LOCATION: Bilateral arm. CEPHALIC: ORIGIN: Right 4 mm Left 5 mm MID-ARM: Right 5 mm Left 6 mm ELBOW: Right 4 mm Left 5 mm FOREARM: Right 4 mm Left 5 mm WRIST: Right 3 mm Left 4 mm BASILIC: ORIGIN: Right 6 mm Left 7 mm MID-ARM: Right 5 mm Left 5 mm ELBOW: Right 5 mm Left 5 mm ARTERIES: BRACHIAL: Right 4 mm Left 4 mm ULNAR: Right 2 mm Left 2 mm RADIAL: Right 2 mm Left 2 mm VEINS: RADIAL: Right 2 mm Left 1 mm ULNAR: Right 2 mm Left 1 mm FINDINGS: The venous system of the upper extremities are patent by color Doppler imaging. Measurements of the arm veins (in mm) are listed above. CONCLUSION: Upper extremity venous mapping, as above. Reij Daley MD on September 07, 2016 at 15:02 Board Certified Radiologist. This report was verified electronically.
[2016-09-07] MEDS ORDERED: IOHEXOL 350 MG/ML 10 ML VIAL (for RAD DIAG) IV ONE (15:13)
[2016-09-07 17:07] LABS: APTT (PATIENT) 44.5 SEC (24.3-30.1)
--- NOTE | 2016-09-07 19:39 | EKG ---
Date Performed: 09/06/2016 Time Performed: 16:23:26 PTAGE: 61 years EKG: Sinus rhythm Leftward axis Left ventricular hypertrophy Since previous tracing, no significant change noted Abnor mal ECG PREVIOUS TRACING : 09/06/2016 16.23.26 DOCTOR: Gerry Crane Interpretating Date/Time 09/07/2016 19:37:43
[2016-09-07 21:06] LABS: APTT (PATIENT) 42.5 SEC (24.3-30.1)
[2016-09-07] MEDS: BACLOFEN 20 MG TAB PO SCH (21:17)
--- NOTE | 2016-09-07 22:54 | RADRPT ---
EXAM DATE/TIME: 09/06/2016 00:00 [facility] COMPARISON: No previous studies available for comparison. INDICATIONS : Arterial occlusion left leg TECHNIQUE: Four-cuff ankle and brachial pressures were obtained. Pulse cuff waveform tracings of the ankles were recorded, and ankle-brachial indices were calculated. PRESSURES (mmHg): Brachial (arm): Right 140 Left iv site Ankle: Right 96 Left 61 MAC: Right 0.69 Left 0.44 TBI: Right 0.61 Left 0.31 PULSED CUFF WAVEFORMS: Blunted monophasic tracings bilaterally CONCLUSION: Evidence of moderate PAD on the right and moderately severe PAD on the left. Reji Luevano MD on September 07, 2016 at 22:51 Board Certified Radiologist. This report was verified electronically.
[2016-09-08] VITALS (22 sets, daily range): BP systolic 118–141; BP diastolic 58–69; PULSE 62–87; RESP 14–25; TEMP 97.7–98.5; O2SAT 96–100
[2016-09-08] MEDS: LEVOTHYROXINE SODIUM 150 MCG TAB PO SCH (06:17)
[2016-09-08] MEDS: BACLOFEN 20 MG TAB PO SCH ×3 (06:17→22:33)
[2016-09-08] MEDS ORDERED: TOPA100T11 PO (06:33)
[2016-09-08 07:34] LABS: APTT (PATIENT) 49.8 SEC (24.3-30.1)
[2016-09-08] MEDS: metFORMIN HCL 500 MG TAB PO SCH (09:00)
[2016-09-08] MEDS: METOPROLOL TARTRATE 25 MG TAB PO SCH ×2 (09:00→21:00)
--- NOTE | 2016-09-08 09:25 | PD.VS.PN ---
Subjective Subjective/Hospital Course Pt admitted with likely acute on chronic L LE arterial occlusion. Pain controlled overnight and able to walk. On hep gtt. CT yesterday showed occluded SFA stents and L LE bypass, but likely BK pop and 3 vessel runoff, although CT reliability for infrageniculate vascular patency is limited Has Doppler signal in distal DP now Objective Vitals/I&O Date Time Temp Pulse Resp B/P Pulse Ox O2 Delivery O2 Flow Rate FiO2 09/08/16 07:15 66 09/08/16 07:00 97.7 62 25 129/69 98 09/08/16 06:00 67 09/08/16 05:00 64 09/08/16 04:00 98.5 68 18 141/68 96 09/08/16 04:00 65 09/08/16 00:00 98.2 79 18 130/64 96 09/07/16 20:00 98.4 84 24 140/70 96 09/07/16 19:00 84 09/07/16 18:00 79 09/07/16 17:00 78 09/07/16 16:00 83 09/07/16 15:00 97.3 85 23 141/66 97 09/07/16 15:00 81 09/07/16 14:00 90 09/07/16 13:26 18 09/07/16 13:00 84 09/07/16 12:00 95 09/07/16 11:00 94 09/07/16 11:00 98.4 94 20 126/67 97 09/07/16 10:00 87 09/08/16 09/08/16 09/08/16 07:00 15:00 23:00 Intake Total 1752 ml Output Total 1700 ml Balance 52 ml Physical Exam No distress, c/o headache Motor intact Laboratory Laboratory Tests Test 09/07/16 09/07/16 09/08/16 16:21 20:40 06:00 Activated Partial 44.5 42.5 49.8 Thromboplast Time Imaging Last 48 hours Impressions Upper Extremity Ultrasound 09/07/16 0000 Signed Impressions: Service Date/Time: Wednesday, September 07, 2016 13:08 - CONCLUSION: No DVT is identified within either upper extremity. Reji Daley MD Upper Extremity Ultrasound 09/07/16 0000 Signed Impressions: Service Date/Time: Wednesday, September 07, 2016 13:22 - CONCLUSION: Upper extremity venous mapping, as above. Reji Daley MD Lower Extremity Ultrasound 09/07/16 0000 Signed Impressions: Service Date/Time: Wednesday, September 07, 2016 12:40 - CONCLUSION: No DVT is identified within the right lower extremity. Reji Daley MD Lower Extremity Ultrasound 09/07/16 0000 Signed Impressions: Service Date/Time: Wednesday, September 07, 2016 12:55 - CONCLUSION: Lower extremity venous mapping performed, as above. Reji Daley MD Chest X-Ray 09/06/16 1616 Signed Impressions: Service Date/Time: Tuesday, September 06, 2016 16:39 - CONCLUSION: No acute disease. Brock Liu MD FACR Lower Extremity Ultrasound 09/06/16 1420 Signed Impressions: Service Date/Time: Tuesday, September 06, 2016 19:41 - CONCLUSION: No DVT in the left leg. Bill Joshi MD Assessment and Plan Plan Likely failed endovascular therapy of L LE, motor intact Anticipate d/c tomorrow if she continues to be motor intact and able to walk. Will plan LLE angiogram and then distal bypass in next 1-2 weeks. Conduit likely B GSV Pt agrees with plan. Discharge Planning tomorrow to home with scheduled OR date in near future for angio, POA and then distal bypass Tentative dates: Angio 09/23 Distal bypass 09/24 Jamari Mary MD Sep 08, 2016 09:25
[2016-09-08] MEDS: SODIUM CHLOR 0.9% 1000 ML INJ 1,000 ML IV SCH ×2 (09:40→18:45)
[2016-09-08] MEDS: HEPARIN-D5W INJ 250 ML IV SCH (09:44)
[2016-09-08] MEDS: PANTOPRAZOLE SOD 40 MG DELAYED RELEASE TAB PO SCH (09:52)
[2016-09-08] MEDS: valACYclovir HCL 500 MG TAB PO SCH (09:52)
[2016-09-08] MEDS: MULTIVITAMINS/MINERALS THERAPEUTIC TAB PO SCH (09:52)
[2016-09-08] MEDS: ASPIRIN 81 MG CHEW TAB PO SCH (09:53)
[2016-09-08] MEDS: HYDROXYCHLOROQUINE SULFATE 200 MG TAB PO SCH (09:53)
[2016-09-08] MEDS ORDERED: TOPIRAMATE 100 MG TAB PO PRN (10:00)
[2016-09-08] MEDS ORDERED: buPROPion HCL 150 MG SUSTAINED RELEASE TAB PO SCH (12:00)
[2016-09-08] MEDS ORDERED: buPROPion HCL 75 MG TAB PO SCH (14:00)
--- NOTE | 2016-09-08 14:53 | RADRPT ---
EXAM DATE/TIME: 09/07/2016 14:47 [facility] COMPARISON: CTA RUNOFF W 3D RECON, December 07, 2015, 17:06. INDICATIONS : Left foot pain; post operative left leg bypass. IV CONTRAST: 100 cc Omnipaque 350 (iohexol) IV RADIATION DOSE: 10.15 CTDIvol (mGy) MEDICAL HISTORY : Cardiovascular disease. SURGICAL HISTORY : Hysterectomy. Cholecystectomy.Left leg bypass. ENCOUNTER: Initial ACUITY: 1 day PAIN SCALE: 5/10 LOCATION: Bilateral extrimity. TECHNIQUE: Volumetric scanning was performed using a multi-row detector CT scanner. The data was post processed with a variety of visualization algorithms including full volume maximum intensity projection, multi -planar sliding thin slab reformation, curved planar reformation, and surface rendering techniques. Using automated exposure control and adjustment of the mA and/or kV according to patient size, radiat ion dose was kept as low as reasonably achievable to obtain optimal diagnostic quality images. FINDINGS: ABDOMINAL AORTA: There is severe atherosclerotic disease of the abdominal aorta. Superior mesenteric artery and celiac trunk are patent. The there are 2 right renal arteries that are patent. In the left renal artery is patent. ARON is also patent. No aneurysm is present. RIGHT PELVIS: There is severe atherosclerotic disease of the common iliac artery and there is a stent present. Ther e is moderate to severe atherosclerotic disease of the internal and external iliac arteries. Stent is present within the external iliac artery. LEFT PELVIS: There is moderate atherosclerotic disease of the common iliac artery with less than 50% stenosis. The re is atherosclerotic disease also present within the internal and external iliac arteries. RIGHT THIGH: There is severe calcification with approximate 50% stenosis of the right common femoral artery. Bifur cation is normal and the profunda femoris is patent. There is a stent in the proximal superficial fem oral artery and there is severe atherosclerotic calcification. It appears to be occluded in the mid t high. There is little flow visualized in the popliteal artery. LEFT THIGH: There is atherosclerotic disease within the superficial femoral artery and a stent is present within the sun'aq superficial femoral artery. The sun'aq superficial femoral artery is completely occluded. Profunda femoral artery demonstrates blood flow. There is a bypass graft originating from the anterio r aspect of the common femoral artery. A by the bypass graft is occluded approximately 1.8 cm from th e origin. The bypass graft appears to be occluded throughout to the behind the knee popliteal artery connection. RIGHT LEG: There is mild blood flow visualized within the leg vessels. These are visualized to the distal leg. LEFT LEG: There is minimal blood flow visualized in the tibial peroneal trunk and minimal blood flow visualized following the trifurcation. Nonvascular structures demonstrate no acute finding. There is sigmoid diverticulosis. Patient is pos t cholecystectomy. CONCLUSION: 1. Both the sun'aq left superficial femoral artery and the left thigh bypass graft are completely occ luded. There is minimal runoff visualized to the left foot. 2. The right superficial femoral artery also appears occluded with minimal reconstitution of the popl iteal artery and mild runoff to the right foot. Reji Daley MD on September 08, 2016 at 14:36 Board Certified Radiologist. This report was verified electronically.
[2016-09-09] VITALS (13 sets, daily range): BP systolic 111–131; BP diastolic 64–81; PULSE 54–104; RESP 16–22; TEMP 97.8–98.2; O2SAT 96–98
[2016-09-09 04:30] LABS: HEMATOCRIT 39.8 % (35.0-46.0); MEAN CELL VOLUME 95.5 FL (80.0-100.0); MEAN CORPUSCULAR HEMOGLOBIN 32.7 PG (27.0-34.0); MEAN CORPUSCULAR HGB CONC 34.2 % (32.0-36.0); PLATELET COUNT 238 TH/MM3 (150-450); RED BLOOD COUNT 4.17 MIL/MM3 (4.00-5.30); RED CELL DISTRIBUTION WIDTH 13.8 % (11.6-17.2); REVIEW FLAG FINAL; WHITE BLOOD COUNT 9.3 TH/MM3 (4.0-11.0)
[2016-09-09 04:34] LABS: APTT (PATIENT) 51.8 SEC (24.3-30.1)
[2016-09-09] MEDS: SODIUM CHLOR 0.9% 1000 ML INJ 1,000 ML IV SCH (04:45)
[2016-09-09] MEDS: HEPARIN-D5W INJ 250 ML IV SCH (05:39)
[2016-09-09] MEDS: LEVOTHYROXINE SODIUM 150 MCG TAB PO SCH (06:52)
[2016-09-09] MEDS: BACLOFEN 20 MG TAB PO SCH (06:55)
[2016-09-09] MEDS: HYDROXYCHLOROQUINE SULFATE 200 MG TAB PO SCH (08:15)
[2016-09-09] MEDS: metFORMIN HCL 500 MG TAB PO SCH (08:15)
[2016-09-09] MEDS: PANTOPRAZOLE SOD 40 MG DELAYED RELEASE TAB PO SCH (08:15)
[2016-09-09] MEDS: MULTIVITAMINS/MINERALS THERAPEUTIC TAB PO SCH (08:15)
[2016-09-09] MEDS: ASPIRIN 81 MG CHEW TAB PO SCH (08:16)
[2016-09-09] MEDS: METOPROLOL TARTRATE 25 MG TAB PO SCH (08:16)
[2016-09-09] MEDS: valACYclovir HCL 500 MG TAB PO SCH (08:21)
--- NOTE | 2016-09-09 08:58 | PD.VS.DC ---
Discharge Summary Admission Date: Sep 06, 2016 at 16:33 Discharge Date: Sep 09, 2016 Admission Diagnosis: (1) PAD (peripheral artery disease) Discharge Diagnosis: (1) PAD (peripheral artery disease) Status: Chronic Brief History from admission 61 yo female with multiple vascular and endovascular procedures for PAD, most recently in Jul when she had LLE revascularization (endo) for "5 hours" . She was getting ready for work this morning and had L foot pain. Motor intact. Presented through ED with pain. Procedure(s): none - Will have Out patient Angio Significant Findings GENERAL: A&OX3 SKIN: Warm and dry. Bilat LE warm to touch with no wounds NECK: Supple CARDIOVASCULAR: RRR RESPIRATORY: Breath sounds equal bilaterally MUSCULOSKELETAL: No cyanosis, or edema. Laboratory Tests Test 09/06/16 09/07/16 09/07/16 09/07/16 14:30 00:20 03:33 07:36 Monocytes (%) (Auto) 8.4 % (0.0-8.0) Estimat Glomerular Filtration 57 ML/MIN (>89) 55 ML/MIN (>89) Rate Random Glucose 122 MG/DL 186 MG/DL (74-106) (74-106) Activated Partial 52.2 SEC 70.7 SEC 80.5 SEC Thromboplast Time (24.3-30.1) (24.3-30.1) (24.3-30.1) Chloride Level 108 MEQ/L (98-107) Creatinine 1.02 MG/DL (0.50-1.00) Test 09/07/16 09/07/16 09/08/16 09/09/16 16:21 20:40 06:00 03:33 Activated Partial 44.5 SEC 42.5 SEC 49.8 SEC 51.8 SEC Thromboplast Time (24.3-30.1) (24.3-30.1) (24.3-30.1) (24.3-30.1) Hospital Course: 61 yo female with multiple vascular and endovascular procedures for PAD, most recently in Jul when she had LLE revascularization (endo) for "5 hours" . She was getting ready for work this morning and had L foot pain. Motor intact. Presented through ED with pain. Pt will be D/C today and scheduled for an out patient angio Allergies Coded Allergies Type Severity Reaction Last Updated Verified Benzocaine Allergy Severe SHORTNESS OF BREATH - "CHANDU" 09/06/16 Yes Codeine Allergy Severe ITCHY 09/06/16 Yes Iodinated Contrast Media Allergy Severe SOB 09/06/16 Yes Iodine Allergy Severe SOB 09/06/16 Yes Lidocaine Allergy Severe Shortness of Breath 09/06/16 Yes Lisinopril Allergy Severe causes liver failure 09/06/16 Yes Lortab Allergy Severe ITCH 09/06/16 Yes Lovastatin Allergy Severe LIVER FAILURE 09/06/16 Yes Morphine Allergy Severe ITCHY 09/06/16 Yes Novocain Allergy Severe Anaphylaxis 09/06/16 Yes Tricor Allergy Severe Cough 09/06/16 Yes Tylenol #3 Allergy Severe Itching 09/06/16 Yes Recent Impressions Upper Extremity Ultrasound 09/07/16 0000 Signed Impressions: Service Date/Time: Wednesday, September 07, 2016 13:08 - CONCLUSION: No DVT is identified within either upper extremity. Reji Daley MD Upper Extremity Ultrasound 09/07/16 0000 Signed Impressions: Service Date/Time: Wednesday, September 07, 2016 13:22 - CONCLUSION: Upper extremity venous mapping, as above. Reji Daley MD Lower Extremity Ultrasound 09/07/16 0000 Signed Impressions: Service Date/Time: Wednesday, September 07, 2016 12:40 - CONCLUSION: No DVT is identified within the right lower extremity. Reji Daley MD Lower Extremity Ultrasound 09/07/16 0000 Signed Impressions: Service Date/Time: Wednesday, September 07, 2016 12:55 - CONCLUSION: Lower extremity venous mapping performed, as above. Reji Daley MD Aorta w/Runoff CTA 09/07/16 0000 Signed Impressions: Service Date/Time: Wednesday, September 07, 2016 14:47 - CONCLUSION: 1. Both the [place] left superficial femoral artery and the left thigh bypass graft are completely occluded. There is minimal runoff visualized to the left foot. 2. The right superficial femoral artery also appears occluded with minimal reconstitution of the popliteal artery and mild runoff to the right foot. Reji Daley MD Chest X-Ray 09/06/16 1616 Signed Impressions: Service Date/Time: Tuesday, September 06, 2016 16:39 - CONCLUSION: No acute disease. Brock Liu MD FACR Lower Extremity Ultrasound 09/06/16 1420 Signed Impressions: Service Date/Time: Tuesday, September 06, 2016 19:41 - CONCLUSION: No DVT in the left leg. Bill Joshi MD 09/07////// 06:00 18:00 06:00 18:00 06:00 18:00 Intake Total 3956 ml 1752 ml 2518 ml 1752 ml Output Total 2650 ml 1700 ml 1500 ml 1900 ml Balance 1306 ml 52 ml 1018 ml -148 ml Intake Oral 1680 ml 420 ml 1200 ml 420 ml IV Total 2276 ml 1332 ml 1318 ml 1332 ml Output Urine Total 2650 ml 1700 ml 1500 ml 1900 ml # Voids 1 # Bowel Movements 0 0 0 1 Laboratory Tests Test 09/06/16 09/07/16 09/07/16 09/07/16 14:30 00:20 03:33 07:36 White Blood Count 6.4 TH/MM3 5.3 TH/MM3 Red Blood Count 4.67 MIL/MM3 4.18 MIL/MM3 Hemoglobin 14.8 GM/DL 13.6 GM/DL Hematocrit 44.0 % 39.3 % Mean Corpuscular Volume 94.0 FL 94.0 FL Mean Corpuscular Hemoglobin 31.6 PG 32.5 PG Mean Corpuscular Hemoglobin 33.6 % 34.6 % Concent Red Cell Distribution Width 12.6 % 13.4 % Platelet Count 309 TH/MM3 276 TH/MM3 Mean Platelet Volume 7.8 FL 8.5 FL Neutrophils (%) (Auto) 65.0 % Lymphocytes (%) (Auto) 23.8 % Monocytes (%) (Auto) 8.4 % Eosinophils (%) (Auto) 2.1 % Basophils (%) (Auto) 0.7 % Neutrophils # (Auto) 4.3 TH/MM3 Lymphocytes # (Auto) 1.5 TH/MM3 Monocytes # (Auto) 0.5 TH/MM3 Eosinophils # (Auto) 0.1 TH/MM3 Basophils # (Auto) 0.0 TH/MM3 CBC Comment DIFF FINAL Differential Comment Prothrombin Time 10.7 SEC Prothromb Time International 1.0 RATIO Ratio Activated Partial 26.2 SEC 52.2 SEC 70.7 SEC 80.5 SEC Thromboplast Time Sodium Level 142 MEQ/L 143 MEQ/L Potassium Level 3.7 MEQ/L 3.8 MEQ/L Chloride Level 107 MEQ/L 108 MEQ/L Carbon Dioxide Level 25.9 MEQ/L 24.7 MEQ/L Anion Gap 9 MEQ/L 10 MEQ/L Blood Urea Nitrogen 12 MG/DL 12 MG/DL Creatinine 0.99 MG/DL 1.02 MG/DL Estimat Glomerular Filtration 57 ML/MIN 55 ML/MIN Rate Random Glucose 122 MG/DL 186 MG/DL Calcium Level 8.9 MG/DL 8.9 MG/DL Test 09/07/16 09/07/16 09/08/16 09/09/16 16:21 20:40 06:00 03:33 Activated Partial 44.5 SEC 42.5 SEC 49.8 SEC 51.8 SEC Thromboplast Time White Blood Count 9.3 TH/MM3 Red Blood Count 4.17 MIL/MM3 Hemoglobin 13.6 GM/DL Hematocrit 39.8 % Mean Corpuscular Volume 95.5 FL Mean Corpuscular Hemoglobin 32.7 PG Mean Corpuscular Hemoglobin 34.2 % Concent Red Cell Distribution Width 13.8 % Platelet Count 238 TH/MM3 Mean Platelet Volume 8.7 FL Procedure Category Date Status Time Us Leg Venous Doppler RADUS 09/06/16 Resulted 14:20 Complete Blood Count LAB 09/06/16 Complete With Diff 14:20 Basic Metabolic Panel LAB 09/06/16 Complete (Bmp) 14:20 Iv Access TX 09/06/16 Transmitted Insert/Monitor 14:20 Ecg Monitoring TX 09/06/16 Transmitted 14:20 Oximetry TX 09/06/16 Transmitted 14:20 Oxygen Administration TX 09/06/16 Transmitted 14:20 Sodium Chloride 0.9% MED 09/06/16 In Process Flush (Ns Flush) 14:30 Lorazepam Inj (Ativan MED 09/06/16 Complete Inj) 15:00 Electrocardiogram CAV 09/06/16 Resulted 16:16 Chest, Single Ap RADDIAG 09/06/16 Resulted 16:16 Prothrombin Time / LAB 09/06/16 Complete Inr (Pt) 16:19 Act Partial Throm LAB 09/06/16 Complete Time (Ptt) 16:19 Admit Order (Ed Use ADMITTING 09/06/16 Transmitted Only) 16:31 Sodium Chlor 0.9% MED 09/06/16 In Process 1000 Ml Inj (Ns 1000 M 16:45 Ondansetron Inj MED 09/06/16 Complete (Zofran Inj) 16:45 Hydromorphone Pf Inj MED 09/06/16 Complete (Dilaudid Pf Inj) 16:45 Heparin Infusion CANDY 09/06/16 Complete 16:35 Heparin-D5w Inj MED 09/06/16 Complete (Heparin-D5w Inj) 16:45 Cbc No Diff, Includes LAB 09/09/16 Complete Plts 06:00 Act Partial Throm LAB 09/06/16 Complete Time (Ptt) 23:35 Occult Blood CANDIDO 09/06/16 In Process (Hemoccult) Stool 16:35 Methylprednisolone So MED 09/06/16 Complete Succ Inj (Solumedr 16:45 Diphenhydramine Inj MED 09/06/16 Complete (Benadryl Inj) 16:45 Diet Heart Healthy DIET 09/06/16 Complete Dinner Equip, Iv Pump Use Of SPD 09/06/16 Logged 20:22 Admit To Inpatient ADMITTING 09/06/16 Transmitted Code Status CODE 09/06/16 Transmitted 21:04 Vital Signs (Adult) CANDY 09/06/16 In Process 21:04 Activity Oob Ad Taylor CANDY 09/06/16 In Process 21:04 ^ Notify Dr. GUPTA 09/06/16 In Process Parameters 21:04 Diet Heart Healthy DIET 09/07/16 Transmitted Breakfast Basic Metabolic Panel LAB 09/06/16 Complete (Bmp) 21:04 Cbc No Diff, Includes LAB 09/06/16 Complete Plts 21:04 Sodium Chloride 0.9% MED 09/06/16 In Process Flush (Ns Flush) 21:15 Aspirin Chew (Aspirin MED 09/07/16 In Process Chew) 09:00 Pantoprazole MED 09/07/16 In Process (Protonix) 09:00 Metoprolol Tartrate MED 09/07/16 In Process (Lopressor) 09:00 Inpatient ADMITTING 09/06/16 Transmitted Certification Arterial Segmt Dopp CAV 09/06/16 Resulted Ltd Sofia Heparin Infusion CANDY 09/06/16 Complete 21:04 Heparin-D5w Inj MED 09/06/16 Complete (Heparin-D5w Inj) 21:30 Act Partial Throm LAB 09/07/16 Complete Time (Ptt) 04:04 Pill Splitter (Pill MED 09/06/16 In Process Splitter) 21:30 Prednisone (Deltasone) MED 09/06/16 Complete 21:30 Prednisone (Deltasone) MED 09/07/16 Complete 05:30 Prednisone (Deltasone) MED 09/07/16 Complete 13:30 Diphenhydramine MED 09/07/16 Complete (Benadryl) 13:30 Cta Runoff W Iv RADCT 09/07/16 Resulted Contrast W 3d Act Partial Throm LAB 09/07/16 Complete Time (Ptt) 06:30 Us Venous Mapping Low RADUS 09/07/16 Resulted Ext Bila Us Venous Mapping Up RADUS 09/07/16 Resulted Ext Bilat Us Arm Venous Doppler RADUS 09/07/16 Resulted Bilat Us Leg Venous Doppler RADUS 09/07/16 Resulted Hydroxychloroquine MED 09/07/16 In Process (Plaquenil) 10:00 Levothyroxine MED 09/07/16 In Process (Synthroid) 10:00 Metformin (Glucophage) MED 09/07/16 In Process 09:00 Valacyclovir (Valtrex) MED 09/07/16 In Process 09:00 (Nf) Coenzyme Q10 MED 09/07/16 Complete (Ubidecarenone) (Coq-1 09:00 (Nf) Krill Oil (Krill MED 09/07/16 Complete Oil [place]-3 300 Mg 09:00 Multivitamins-Minerals MED 09/07/16 In Process Therap (Theragran 10:00 Bupropion Sr MED 09/07/16 Complete (Wellbutrin Sr) 10:00 Oxycodone (Roxicodone) MED 09/07/16 In Process 09:45 Act Partial Throm LAB 09/07/16 Complete Time (Ptt) 15:00 Iohexol 350 Inj MED 09/07/16 Complete (Omnipaque 350 Inj) 15:13 Act Partial Throm LAB 09/07/16 Complete Time (Ptt) 21:00 Baclofen (Lioresal) MED 09/07/16 In Process 22:00 Act Partial Throm LAB 09/08/16 Complete Time (Ptt) 06:00 Act Partial Throm LAB 09/09/16 Complete Time (Ptt) 06:00 Topiramate (Topamax) MED 09/08/16 In Process 10:00 Bupropion Sr MED 09/08/16 Complete (Wellbutrin Sr) 12:00 Bupropion (Wellbutrin) MED 09/08/16 Complete 14:00 Bupropion Sr MED 09/09/16 In Process (Wellbutrin Sr) 09:00 Equip, Iv Pump Use Of SPD 09/08/16 Logged 20:03 Attending Discharge DISCHARGE 09/09/16 Transmitted Order Vital Signs Date Time Temp Pulse Resp B/P Pulse Ox O2 Delivery O2 Flow Rate FiO2 09/09/16 07:50 60 09/09/16 07:50 97.8 60 16 131/68 98 09/09/16 06:06 77 09/09/16 06:00 62 09/09/16 05:00 58 09/09/16 04:00 98.2 64 22 111/64 97 09/09/16 04:00 64 09/09/16 03:22 78 09/09/16 02:00 63 09/09/16 01:00 60 09/09/16 00:00 54 09/09/16 00:00 98.2 104 22 122/75 97 09/08/16 23:00 75 09/08/16 22:00 75 09/08/16 21:00 75 09/08/16 20:00 74 09/08/16 20:00 98.0 74 24 118/58 97 09/08/16 19:00 74 09/08/16 18:00 87 09/08/16 17:00 87 09/08/16 16:00 85 09/08/16 15:39 18 09/08/16 15:00 76 09/08/16 15:00 97.7 76 16 133/61 100 09/08/16 14:00 85 09/08/16 13:00 83 09/08/16 12:00 83 09/08/16 11:00 97.9 86 14 132/62 96 09/08/16 11:00 85 09/08/16 10:00 81 09/08/16 09:00 66 09/08/16 08:00 81 09/08/16 07:15 66 09/08/16 07:00 97.7 62 25 129/69 98 09/08/16 06:00 67 09/08/16 05:00 64 09/08/16 04:00 98.5 68 18 141/68 96 09/08/16 04:00 65 09/08/16 00:00 98.2 79 18 130/64 96 09/07/16 20:00 98.4 84 24 140/70 96 09/07/16 19:00 84 09/07/16 18:00 79 09/07/16 17:00 78 09/07/16 16:00 83 09/07/16 15:00 97.3 85 23 141/66 97 09/07/16 15:00 81 09/07/16 14:00 90 09/07/16 13:00 84 09/07/16 12:00 95 09/07/16 11:00 94 09/07/16 11:00 98.4 94 20 126/67 97 09/07/16 10:00 87 09/07/16 09:00 78 09/07/16 08:00 98.7 87 20 145/67 96 09/07/16 08:00 77 09/07/16 07:00 81 09/07/16 04:00 98.4 81 20 118/55 96 09/07/16 02:00 79 09/07/16 00:00 84 09/07/16 00:00 98.2 87 18 113/61 96 09/06/16 22:00 85 09/06/16 20:00 98.4 86 18 115/60 95 09/06/16 20:00 86 09/06/16 18:21 90 17 126/68 97 Room Air 09/06/16 16:47 93 17 132/71 96 Room Air 09/06/16 15:36 96 17 140/65 98 Room Air 09/06/16 14:42 96 Room Air 09/06/16 14:42 96 Room Air 09/06/16 13:42 97.9 109 16 120/82 98 Discharge Condition: Good Discharge Disposition: Discharge Home Discharge Instructions: The office will call to schedule outpatient Angiogram Call the office with any questions or concerns Oumou CORDERO [facility]/ [place] [phone] Any questions or concerns: Call [facility] Heart and Vascular Surgery at [facility] [phone] Oumou Self Sep 09, 2016 08:58
[2016-09-09] MEDS ORDERED: buPROPion HCL 150 MG SUSTAINED RELEASE TAB PO SCH (09:00)
== END 2016-09-09 13:25 | disposition home or self-care (01) | DRG 316 ==
LOC: PHED 13:37 → PHEDA 16:33 → HCPC 19:40 → HCIN 09-08 17:41
PROVIDERS: ADMIT Surgery; ATTEND Surgery
PROC: B41D1ZZ Fluoroscopy of Aorta and Bilateral Lower Extremity Arteries using Low Osmolar Contrast (ICD-10-PCS; principal; 2016-09-07)
DX: T82.856A Stenosis of peripheral vascular stent, initial encounter (principal); I70.203 Unspecified atherosclerosis of native arteries of extremities, bilateral legs; I70.0 Atherosclerosis of aorta; I50.9 Heart failure, unspecified; I48.91 Unspecified atrial fibrillation; F32.9 Major depressive disorder, single episode, unspecified; E11.9 Type 2 diabetes mellitus without complications; I10 Essential (primary) hypertension; M79.605 Pain in left leg; J45.909 Unspecified asthma, uncomplicated; M19.90 Unspecified osteoarthritis, unspecified site; Z86.718 Personal history of other venous thrombosis and embolism; Z79.01 Long term (current) use of anticoagulants; F41.9 Anxiety disorder, unspecified; Z85.43 Personal history of malignant neoplasm of ovary; Z85.41 Personal history of malignant neoplasm of cervix uteri; Z85.828 Personal history of other malignant neoplasm of skin; I25.10 Atherosclerotic heart disease of native coronary artery without angina pectoris; I25.2 Old myocardial infarction; Z95.5 Presence of coronary angioplasty implant and graft; J44.9 Chronic obstructive pulmonary disease, unspecified; E78.00 Pure hypercholesterolemia, unspecified; Z86.73 Personal history of transient ischemic attack (TIA), and cerebral infarction without residual deficits; Z87.891 Personal history of nicotine dependence; E03.9 Hypothyroidism, unspecified; K21.9 Gastro-esophageal reflux disease without esophagitis; K44.9 Diaphragmatic hernia without obstruction or gangrene; Z86.19 Personal history of other infectious and parasitic diseases; M79.7 Fibromyalgia; Z88.5 Allergy status to narcotic agent; Z88.8 Allergy status to other drugs, medicaments and biological substances; Z88.4 Allergy status to anesthetic agent; Z91.041 Radiographic dye allergy status; Z87.892 Personal history of anaphylaxis; Y82.8 Other medical devices associated with adverse incidents; Y92.9 Unspecified place or not applicable; Y83.8 Other surgical procedures as the cause of abnormal reaction of the patient, or of later complication, without mention of misadventure at the time of the procedure
CPT/HCPCS: 71010; 75635; 80048; 85025; 85027; 85610; 85730; 93005; 93922; 93970; 93971; 93998; 96374; J1170; J1200; J1644; J2060; J2405; J2920; J7030; J7512; Q0163; Q9967

== ENCOUNTER 2016-09-23 12:36 | Inpatient (IN) | payer MEDICARE, OTHER ==
[2016-09-23] VITALS (11 sets, daily range): BP systolic 117–147; BP diastolic 67–84; PULSE 61–122; RESP 16–18; TEMP 97.8–98.5; O2SAT 95–100
[~2016-09-23] VITALS: Ht 170.2 cm; Wt 77.8 kg
[~2016-09-23 12:36] MED LIST changes: -APIX5TAB PO; +BUPR150XL PO; +CILO100T PO; +PLAV75TA29 PO; +TOPA100T11 PO
[2016-09-23] MEDS ORDERED: SODIUM CHLORIDE 0.9% FLUSH 5 ML FLUSH IV FLUSH PRN (13:30)
[2016-09-23] MEDS ORDERED: SODIUM BICARBONATE 100 MEQ in D5W 1000 ML IV SCH (13:30)
[2016-09-23 13:55] LABS: AUTOMATED NEUTROPHIL # 7.7 TH/MM3 (1.8-7.7); BASOPHIL % 0.1 % (0.0-2.0); HEMO FLAGS DIFF FINAL; LYMPH % 6.1 % (9.0-44.0); LYMPHOCYTE # 0.5 TH/MM3 (1.0-4.8); MEAN CELL VOLUME 93.5 FL (80.0-100.0); MEAN CORPUSCULAR HEMOGLOBIN 32.8 PG (27.0-34.0); MEAN CORPUSCULAR HGB CONC 35.1 % (32.0-36.0); MONO % 1.6 % (0.0-8.0); NEUT % 92.2 % (16.0-70.0); PLATELET COUNT 323 TH/MM3 (150-450); RED BLOOD COUNT 4.82 MIL/MM3 (4.00-5.30); RED CELL DISTRIBUTION WIDTH 13.7 % (11.6-17.2); WHITE BLOOD COUNT 8.3 TH/MM3 (4.0-11.0)
[2016-09-23] MEDS ORDERED: BACL20TA PO (13:59)
[2016-09-23] MEDS ORDERED: LECIGRA PO (14:00)
[2016-09-23] MEDS ORDERED: KELP150T PO (14:00)
[2016-09-23] MEDS ORDERED: FOLI400T PO (14:00)
[2016-09-23] MEDS ORDERED: EVEN1000 PO (14:00)
[2016-09-23] MEDS ORDERED: BIOT7500 PO (14:00)
[2016-09-23] MEDS ORDERED: VITATAB11 PO (14:00)
[2016-09-23] MEDS ORDERED: CHOL50008 PO (14:00)
[2016-09-23] MEDS ORDERED: ZINC100T PO (14:00)
[2016-09-23 14:02] LABS: INTERNATIONAL NORMALIZED RATIO 0.9 RATIO; PROTHROMBIN TIME - PATIENT 10.2 SEC (9.8-11.6)
[2016-09-23 14:10] LABS: BICARBONATE 22.3 MEQ/L (21.0-32.0); POTASSIUM 3.8 MEQ/L (3.5-5.1)
[2016-09-23] MEDS ORDERED: HEPARIN-NS/PF INJ 500 ML ONE (14:14)
[2016-09-23] MEDS ORDERED: methylPREDNISolone SOD SUCC 125 MG/2 ML VIAL ONE (14:15)
[2016-09-23] MEDS ORDERED: MIDAZOLAM HCL 5 MG/5 ML VIAL ONE (14:15)
[2016-09-23] MEDS ORDERED: diphenhydrAMINE HCL 50 MG/ML VIAL ONE (14:15)
[2016-09-23] MEDS ORDERED: FAMOTIDINE 20 MG/2 ML VIAL ONE (14:15)
--- NOTE | 2016-09-23 14:52 | HHI.PR ---
Immediate Post Op Note Procedure Date: Sep 23, 2016 Pre Op Diagnosis: L LE rest pain, PAD Post Op Diagnosis: L LE rest pain, PAD Surgeon: Jamari Mary Braid Maker(s): none Procedure: Aortogram w. L LE angiogram Findings: 1. Stenosis proximal L profunda 2. Occluded L LE bypass 3. Occluded SFA stents 4. BK pop reconstitution and 2vessel runoff: peroneal with PT reconstitution Complications: none apparent Sheath removed in cemetery laborer Specimen(s) removed: none Estimated blood loss: trace Anesthesia: MAC Drains: None Patient to: Other (DOCU) Patient Condition: Good Date/Time of Procedure: SEE SURGICAL CARE RECORD Jamari Mary MD Sep 23, 2016 14:52
[2016-09-23] MEDS ORDERED: IOHEXOL 350 MG/ML 100 ML BTL (for Cath Lab) OTHER ONE (15:00)
[2016-09-23] MEDS ORDERED: oxyCODONE/ACETAMINOPHEN 5 MG/325 MG TAB PO PRN (17:00)
[2016-09-23] MEDS: BACLOFEN 20 MG TAB PO SCH (17:48)
[2016-09-23] MEDS: DOCUSATE SODIUM 100 MG CAP PO SCH (21:42)
[2016-09-23] MEDS: TOPIRAMATE 100 MG TAB PO PRN (21:42)
[2016-09-23] MEDS: SODIUM CHLORIDE 0.9% FLUSH 5 ML FLUSH IV FLUSH SCH (21:43)
[2016-09-23] MEDS: ATORVASTATIN 40 MG TAB PO SCH (21:46)
[2016-09-23] MEDS ORDERED: LACTATED RINGER'S 1000 ML IV SCH (23:00)
[2016-09-23] MEDS ORDERED: LACTATED RINGER'S 1000 ML INJ 1,000 ML IV SCH (23:00)
[2016-09-23] MEDS ORDERED: INSULIN HUMAN REGULAR 1,000 UNITS/10 ML VIAL SQ PRN (23:00)
[2016-09-23] MEDS ORDERED: SODIUM CHLORID 0.9% 500 ML IV SCH (23:00)
[2016-09-24] VITALS (20 sets, daily range): BP systolic 115–155; BP diastolic 63–89; PULSE 58–84; RESP 16–18; TEMP 97.6–98.7; O2SAT 95–100
--- NOTE | 2016-09-24 05:30 | PD.VS.PN ---
Pre-operative Note Pre-operative diagnosis: PAD, failed L LE bypass, rest pain Planned procedure: L groin reconstruction, LLE bypass Interval History: The patient was admitted for overnight observation after a diagnostic angiogram yesterday helped delineate the anatomy. To OR today. Labs: Laboratory Results Test 09/23/16 13:37 White Blood Count 8.3 TH/MM3 (4.0-11.0) Red Blood Count 4.82 MIL/MM3 (4.00-5.30) Hemoglobin 15.8 GM/DL (11.6-15.3) Hematocrit 45.0 % (35.0-46.0) Mean Corpuscular Volume 93.5 FL (80.0-100.0) Mean Corpuscular Hemoglobin 32.8 PG (27.0-34.0) Mean Corpuscular Hemoglobin 35.1 % Concent (32.0-36.0) Red Cell Distribution Width 13.7 % (11.6-17.2) Platelet Count 323 TH/MM3 (150-450) Mean Platelet Volume 8.5 FL (7.0-11.0) Prothromb Time International 0.9 RATIO Ratio Sodium Level 141 MEQ/L (136-145) Potassium Level 3.8 MEQ/L (3.5-5.1) Chloride Level 108 MEQ/L (98-107) Carbon Dioxide Level 22.3 MEQ/L (21.0-32.0) Anion Gap 11 MEQ/L (5-15) Blood Urea Nitrogen 10 MG/DL (7-18) Random Glucose 155 MG/DL (74-106) Calcium Level 9.5 MG/DL (8.5-10.1) Blood: T&C 2U Imaging: angio yesterday shows reasonable appearing BK popliteal artery target Orders: NPO after MN MIVF L UE precautions for possible use as conduit Post-operative destination: PACU Operative site marked: Yes Consent: Informed consent has been obtained from Kristal Sanchez. I have explained the procedure in detail and discussed the risks, benefits, and potential complications. All questions have been answered. Jamari Mary MD Sep 24, 2016 05:30
[2016-09-24] MEDS: LEVOTHYROXINE SODIUM 150 MCG TAB PO SCH (05:54)
[2016-09-24] MEDS ORDERED: HEPARIN SODIUM - SQ 10,000 UNITS/ML VIAL ONE (08:01)
[2016-09-24] MEDS: HYDROXYCHLOROQUINE SULFATE 200 MG TAB PO SCH (08:04)
[2016-09-24] MEDS: FOLIC ACID 1 MG TAB PO SCH (08:04)
[2016-09-24] MEDS: DOCUSATE SODIUM 100 MG CAP PO SCH ×2 (08:04→21:32)
[2016-09-24] MEDS: SODIUM CHLORIDE 0.9% FLUSH 5 ML FLUSH IV FLUSH SCH ×2 (08:04→21:00)
[2016-09-24] MEDS: PANTOPRAZOLE SOD 40 MG DELAYED RELEASE TAB PO SCH (08:04)
[2016-09-24] MEDS: BACLOFEN 20 MG TAB PO SCH ×3 (08:04→18:00)
[2016-09-24] MEDS: CHOLECALCIFEROL (VIT D3) 5000 UNIT CAP PO SCH (08:05)
[2016-09-24] MEDS: MULTIVITAMINS/MINERALS THERAPEUTIC TAB PO SCH (08:05)
[2016-09-24] MEDS: valACYclovir HCL 500 MG TAB PO SCH ×2 (08:05→09:00)
[2016-09-24] MEDS ORDERED: fentaNYL CITRATE 250 MCG/5 ML AMP ONE ×2 (08:10→14:05)
[2016-09-24] MEDS ORDERED: MIDAZOLAM HCL 2 MG/2 ML VIAL ONE (08:10)
[2016-09-24] MEDS ORDERED: DEXAMETHASONE SOD PHOS 4 MG/ML VIAL ONE (08:10)
[2016-09-24] MEDS ORDERED: HEPARIN SODIUM - IV 10,000 UNITS/10 ML VIAL ONE (08:44)
[2016-09-24] MEDS ORDERED: ceFAZolin 2 GM PREMIX 50 ML ONE (08:44)
[2016-09-24] MEDS ORDERED: PROTAMINE SULFATE 50 MG/5 ML VIAL ONE (08:44)
[2016-09-24] MEDS ORDERED: ZINC GLUCONATE 100 MG PO SCH (09:00)
[2016-09-24] MEDS ORDERED: KRILL OIL PO SCH (09:00)
[2016-09-24] MEDS ORDERED: B COMPLEX VITAMINS PO SCH (09:00)
[2016-09-24] MEDS ORDERED: NON-FORMULARY DRUG (Coenzyme Q10 (Ubidecarenone) (Coq-10) 100 MG) PO SCH (09:00)
[2016-09-24] MEDS ORDERED: EVENING PRIMROSE OIL PO SCH (09:00)
[2016-09-24] MEDS ORDERED: BIOTIN 10000 MCG PO SCH (09:00)
[2016-09-24] MEDS ORDERED: buPROPion HCL 150 MG EXTENDED RELEASE TAB PO SCH (09:00)
[2016-09-24] MEDS ORDERED: [UNRECOGNIZED DRUG - OTHER] PO SCH (09:00)
[2016-09-24] MEDS ORDERED: IODINE PO SCH (09:00)
[2016-09-24] MEDS ORDERED: PNEUMOCOCCAL POLYVALENT INJ 25 MCG/0.5 ML SYR IM ONE (10:00)
[2016-09-24] MEDS ORDERED: INFLUENZA VIRUS VACCINE (QUADRIVALENT) 0.5 ML SYR IM ONE (10:00)
[2016-09-24] MEDS: buPROPion HCL 100 MG SUSTAINED RELEASE TAB PO SCH ×2 (10:45→21:00)
[2016-09-24] MEDS ORDERED: THROMBIN (TOPICAL) 20,000 UNIT SPRAY KIT OTHER ONE (12:25)
[2016-09-24] MEDS: LACTATED RINGER'S 1000 ML INJ 1,000 ML IV SCH ×2 (13:37→14:19)
--- NOTE | 2016-09-24 13:37 | HHI.PR ---
Immediate Post Op Note Procedure Date: Sep 24, 2016 Pre Op Diagnosis: L LE rest pain, PAD, failed bypass Post Op Diagnosis: L LE rest pain, PAD, failed bypass Surgeon: Jamari Mary Ground Transportation Operator(s): Keya Cartagena Procedure: 1. L SR COMMUNITY MANAGER/PFA TEA w/ patch angioplasty 2. L fem-BK pop bypass with reversed GSV 3. Redo procedure Findings: Significant SR COMMUNITY MANAGER disease, thrombosed SFA stents, thrombosed old bypass Able to preserve profunda and 2 branches of SR COMMUNITY MANAGER after patch Additional Information: Strong Doppler signal in popliteal artery, PT at end of case Complications: none apparent Specimen(s) removed: none Estimated blood loss: 250 mL Anesthesia: General Drains: None Fluids: 1500 mL x'oid; 400 mL UOP IVF Patient to: PACU Patient Condition: Good Implant/Devices: SEE IMPLANT LOG (if applicable) Date/Time of Procedure: SEE SURGICAL CARE RECORD Jamari Mary MD Sep 24, 2016 13:37
[2016-09-24] MEDS ORDERED: NALOXONE HCL 0.4 MG/ML AMP IV PRN (13:45)
[2016-09-24] MEDS: PCA - TOTAL MG DILAUDID DELIVERED PER SHIFT OTHER SCH ×2 (14:00→21:34)
[2016-09-24] MEDS ORDERED: ENOXAPARIN SODIUM 40 MG/0.4 ML SYRINGE SQ SCH (14:00)
[2016-09-24] MEDS ORDERED: PROPOFOL 200 MG/20 ML AMP IV ONE (14:03)
[2016-09-24] MEDS ORDERED: NEOSTIGMINE 3 MG/3 ML SYR IV ONE (14:03)
[2016-09-24] MEDS ORDERED: LACTATED RINGER'S 1000 ML INJ 1,000 ML IV ONE (14:03)
[2016-09-24] MEDS ORDERED: ONDANSETRON HCL 4 MG/2 ML VIAL IV PUSH ONE (14:03)
[2016-09-24] MEDS: HYDROmorphone HCL PCA 6 MG/30 ML IV SCH (14:20)
[2016-09-24] MEDS ORDERED: *MEPERIDINE 25 MG INJ VIAL PERIprocedural Use ONLY ONE (14:31)
--- NOTE | 2016-09-24 18:29 | PD.VS.PN ---
Subjective POD #: 0 Procedure(s): L groin reconstruction, LLE bypass with reversed GSV Subjective/Hospital Course resting comfortably, no complaints except posterior knee pain. Objective Vitals/I&O Date Time Temp Pulse Resp B/P Pulse Ox O2 Delivery O2 Flow Rate FiO2 09/24/16 18:23 64 09/24/16 17:35 64 09/24/16 16:02 71 09/24/16 15:34 68 09/24/16 15:34 97.8 69 16 155/89 100 09/24/16 15:32 16 09/24/16 15:09 16 09/24/16 14:45 66 14 137/82 99 Nasal Cannula 3 09/24/16 14:30 80 14 168/94 99 Nasal Cannula 3 09/24/16 14:20 16 09/24/16 14:15 72 14 157/91 99 Nasal Cannula 3 09/24/16 14:00 76 14 170/93 99 Nasal Cannula 3 09/24/16 13:54 98.2 68 14 166/93 94 Nasal Cannula 3 09/24/16 08:16 58 09/24/16 08:16 97.7 61 16 129/81 98 09/24/16 06:00 64 09/24/16 05:08 67 09/24/16 04:00 79 09/24/16 03:40 98.6 74 16 126/77 95 09/24/16 03:05 82 09/24/16 02:36 79 09/24/16 01:00 84 09/24/16 00:37 79 09/23/16 23:09 98.3 89 16 117/67 96 09/23/16 23:00 102 09/23/16 22:00 94 09/23/16 21:00 122 09/23/16 20:00 102 09/23/16 20:00 98.5 81 16 127/67 95 09/23/16 19:00 102 09/24/16 09/24/16 09/24/16 07:00 15:00 23:00 Intake Total 1473 ml 1800 ml 356 ml Output Total 1100 ml 650 ml 575 ml Balance 373 ml 1150 ml -219 ml Exam: L groin skin vac and L thigh skin vac in place L calf incision c/d/i Pulses: Strong DP Doppler signal Feet warm Assessment and Plan Plan Adv diet OOB ad juhi [place] out in the morning. Jamari Mary MD Sep 24, 2016 18:29
[2016-09-24] MEDS: ATORVASTATIN 40 MG TAB PO SCH (21:33)
[2016-09-24 21:57] LABS: HEMATOCRIT 35.6 % (35.0-46.0); MEAN CELL VOLUME 93.8 FL (80.0-100.0); MEAN CORPUSCULAR HEMOGLOBIN 32.2 PG (27.0-34.0); MEAN CORPUSCULAR HGB CONC 34.3 % (32.0-36.0); PLATELET COUNT 274 TH/MM3 (150-450); RED BLOOD COUNT 3.79 MIL/MM3 (4.00-5.30); RED CELL DISTRIBUTION WIDTH 13.7 % (11.6-17.2); REVIEW FLAG FINAL; WHITE BLOOD COUNT 12.5 TH/MM3 (4.0-11.0)
[2016-09-24 22:29] LABS: BICARBONATE 30.6 MEQ/L (21.0-32.0); POTASSIUM 3.8 MEQ/L (3.5-5.1)
--- NOTE | 2016-09-24 22:57 | MP ---
cc: JAMARI MARY MD DATE OF SURGERY 09/23/2016 PREOPERATIVE DIAGNOSIS Left lower extremity ischemia, failed distal bypass. POSTOPERATIVE DIAGNOSIS Left lower extremity ischemia, failed distal bypass. PROCEDURE Aortogram with left lower extremity angiogram. ATTENDING SURGEON Jamari Mary MD ANESTHESIA Local with sedation. INDICATION Mrs. Sanchez is a 61-year-old lady who has peripheral arterial occlusive disease and a previous left lower extremity bypass. She presented with rest pain and was taken to the operating room for angiographic evaluation and treatment. There is no prior catheter-based imaging available for my review since the onset of her rest pain. DESCRIPTION OF PROCEDURE Informed consent was obtained from the patient. She was taken to the operating room and placed supine on the operating table. An appropriate time out was taken to assure the patient's identify, operative plan and planned procedure. The administration of antibiotics were not necessary as this is a clean procedure without planned implantation of any foreign object. Everyone in the room agreed with the time out and we proceeded. Her bilateral groins were prepped and draped and the right groin was anesthetized with 1% lidocaine. A 21 gauge micropuncture needle was used to access the right common femoral artery through which a 0.035 Glidewire was introduced and the micropuncture sheath was exchanged for a 4 Panamanian sheath and a VCF catheter was placed over the wire in through the sheath and the aortogram and pelvic arteriogram was obtained. A Glidewire was then reintroduced navigated down to the left common femoral artery. The VCF catheter was advanced over this and the left lower extremity arteriogram was obtained. Wire catheter and sheath were removed. Pressure was held for hemostasis. There were no complications. I was present and scrubbed for the entire procedure. INTERPRETATION OF IMAGES The patient has patent renal arteries, patent infrarenal aorta, patent common iliac arteries bilaterally. Hypogastric arteries and external iliac arteries appear to be right common and right external iliac artery have stents both of which are widely patent. The left common femoral artery is patent. There is a radiographic evidence of origin of a bypass. The proximal superficial femoral artery is patent. The patient has a proximal profunda stenosis, profunda based collaterals give rise to the below knee popliteal artery and there is two vessel runoff to the foot with the peroneal being the dominant runoff which reconstitutes at posterior tibial artery and delayed and anterior tibial artery. MD SO Puente /4:01 PM /10:27 PM [facility]
[2016-09-25] VITALS (27 sets, daily range): BP systolic 97–125; BP diastolic 61–70; PULSE 63–87; RESP 16–18; TEMP 98–99.3; O2SAT 97–100
[2016-09-25] MEDS: LEVOTHYROXINE SODIUM 150 MCG TAB PO SCH (05:24)
[2016-09-25] MEDS: PCA - TOTAL MG DILAUDID DELIVERED PER SHIFT OTHER SCH ×3 (05:26→21:46)
[2016-09-25 06:15] LABS: HEMATOCRIT 33.4 % (35.0-46.0); MEAN CORPUSCULAR HEMOGLOBIN 32.3 PG (27.0-34.0); MEAN CORPUSCULAR HGB CONC 34.4 % (32.0-36.0); PLATELET COUNT 235 TH/MM3 (150-450); RED BLOOD COUNT 3.55 MIL/MM3 (4.00-5.30); RED CELL DISTRIBUTION WIDTH 13.5 % (11.6-17.2); REVIEW FLAG FINAL; WHITE BLOOD COUNT 9.7 TH/MM3 (4.0-11.0)
[2016-09-25 06:36] LABS: POTASSIUM 3.6 MEQ/L (3.5-5.1)
--- NOTE | 2016-09-25 06:56 | PD.VS.PN ---
Subjective POD #: 1 Procedure(s): L groin reconstruction, LLE bypass with reversed GSV Subjective/Hospital Course c/o insomnia but leg feels ok [place] out this morning. Not yet voided. Objective Vitals/I&O Date Time Temp Pulse Resp B/P Pulse Ox O2 Delivery O2 Flow Rate FiO2 09/25/16 06:00 74 09/25/16 05:26 16 09/25/16 05:03 72 09/25/16 04:42 63 09/25/16 03:20 98.8 79 18 120/70 98 09/25/16 03:07 72 09/25/16 02:00 72 09/25/16 01:16 74 09/25/16 00:32 77 09/24/16 23:35 98.7 63 16 121/86 97 09/24/16 23:00 68 09/24/16 22:00 66 09/24/16 21:34 16 09/24/16 21:00 78 09/24/16 20:00 82 09/24/16 19:40 97.6 77 18 115/63 96 09/24/16 19:00 78 09/24/16 18:23 64 09/24/16 17:35 64 09/24/16 16:02 71 09/24/16 15:34 68 09/24/16 15:34 97.8 69 16 155/89 100 09/24/16 15:32 16 09/24/16 15:09 16 09/24/16 14:45 66 14 137/82 99 Nasal Cannula 3 09/24/16 14:30 80 14 168/94 99 Nasal Cannula 3 09/24/16 14:20 16 09/24/16 14:15 72 14 157/91 99 Nasal Cannula 3 09/24/16 14:00 76 14 170/93 99 Nasal Cannula 3 09/24/16 13:54 98.2 68 14 166/93 94 Nasal Cannula 3 09/24/16 08:16 58 09/24/16 08:16 97.7 61 16 129/81 98 Exam: Resting comfortably Foot warm Pulses: Strong PT and DP Doppler signals Incisions: calf incision ok Groin and thigh incisions with skin vac in place Laboratory Laboratory Tests Test 09/24/16 09/25/16 21:44 05:35 White Blood Count 12.5 9.7 Red Blood Count 3.79 3.55 Hemoglobin 12.2 11.5 Hematocrit 35.6 33.4 Mean Corpuscular Volume 93.8 94.0 Mean Corpuscular Hemoglobin 32.2 32.3 Mean Corpuscular Hemoglobin 34.3 34.4 Concent Red Cell Distribution Width 13.7 13.5 Platelet Count 274 235 Mean Platelet Volume 8.7 8.6 Sodium Level 142 144 Potassium Level 3.8 3.6 Chloride Level 105 106 Carbon Dioxide Level 30.6 31.0 Anion Gap 6 7 Blood Urea Nitrogen 15 13 Creatinine 0.97 0.76 Estimat Glomerular Filtration 59 78 Rate Random Glucose 113 85 Calcium Level 7.9 8.3 Assessment and Plan Plan OOB ad juhi diet PT Reg diet and meds . Jamari Mary MD Sep 25, 2016 06:56
[2016-09-25] MEDS ORDERED: POTASSIUM CHLORIDE 10 MEQ CONTROLLED RELEASE TAB PO ONE (07:00)
[2016-09-25] MEDS: FOLIC ACID 1 MG TAB PO SCH (09:51)
[2016-09-25] MEDS: ASPIRIN 81 MG CHEW TAB PO SCH (09:52)
[2016-09-25] MEDS: MULTIVITAMINS/MINERALS THERAPEUTIC TAB PO SCH (09:52)
[2016-09-25] MEDS: BACLOFEN 20 MG TAB PO SCH (09:53)
[2016-09-25] MEDS: DOCUSATE SODIUM 100 MG CAP PO SCH ×2 (09:55→21:40)
[2016-09-25] MEDS: buPROPion HCL 100 MG SUSTAINED RELEASE TAB PO SCH ×3 (09:56→21:41)
[2016-09-25] MEDS: PANTOPRAZOLE SOD 40 MG DELAYED RELEASE TAB PO SCH (09:57)
[2016-09-25] MEDS: HYDROXYCHLOROQUINE SULFATE 200 MG TAB PO SCH ×2 (09:57→21:40)
[2016-09-25] MEDS: CHOLECALCIFEROL (VIT D3) 5000 UNIT CAP PO SCH (10:01)
[2016-09-25] MEDS: valACYclovir HCL 500 MG TAB PO SCH (10:02)
[2016-09-25] MEDS: SODIUM CHLORIDE 0.9% FLUSH 5 ML FLUSH IV FLUSH SCH (10:03)
[2016-09-25] MEDS: HYDROmorphone HCL PCA 6 MG/30 ML IV SCH (11:13)
[2016-09-25] MEDS: ENOXAPARIN SODIUM 40 MG/0.4 ML SYRINGE SQ SCH (12:41)
[2016-09-25] MEDS: LACTATED RINGER'S 1000 ML INJ 1,000 ML IV SCH (13:48)
[2016-09-25] MEDS: BACLOFEN 20 MG TAB PO PRN (21:40)
[2016-09-25] MEDS: ATORVASTATIN 40 MG TAB PO SCH (21:40)
[2016-09-25] MEDS: TOPIRAMATE 100 MG TAB PO PRN (21:40)
[2016-09-26] VITALS (28 sets, daily range): BP systolic 100–121; BP diastolic 60–77; PULSE 67–90; RESP 16–20; TEMP 97.8–99.4; O2SAT 96–100
[2016-09-26] MEDS: PCA - TOTAL MG DILAUDID DELIVERED PER SHIFT OTHER SCH ×3 (06:00→21:27)
[2016-09-26] MEDS: LEVOTHYROXINE SODIUM 150 MCG TAB PO SCH (06:05)
[2016-09-26 06:49] LABS: HEMATOCRIT 33.4 % (35.0-46.0); MEAN CORPUSCULAR HEMOGLOBIN 32.1 PG (27.0-34.0); MEAN CORPUSCULAR HGB CONC 33.8 % (32.0-36.0); PLATELET COUNT 201 TH/MM3 (150-450); RED BLOOD COUNT 3.52 MIL/MM3 (4.00-5.30); RED CELL DISTRIBUTION WIDTH 13.8 % (11.6-17.2); REVIEW FLAG FINAL; WHITE BLOOD COUNT 7.8 TH/MM3 (4.0-11.0)
--- NOTE | 2016-09-26 07:02 | MP ---
cc: GONZALEZ MARY MD DATE OF SURGERY 09/24/2016 PREOPERATIVE DIAGNOSIS Left lower extremity rest pain, peripheral arterial occlusive disease, failed bypass. POSTOPERATIVE DIAGNOSIS Left lower extremity rest pain, peripheral arterial occlusive disease, failed bypass. PROCEDURE 1. Left iliofemoral and profunda endarterectomy with patch angioplasty. 2. Left femoral to below knee popliteal artery bypass with reverse left great saphenous vein. 3. Re-do procedure ATTENDING SURGEON Gonzalez Mary MD PROOF OPERATOR Keya Cartagena ANESTHESIA General INDICATIONS Ms. Sanchez is a lady who has left lower extremity rest pain, diminished MAC's. She has previous open ended revascularization and is being taken to the operating room for a re-do revascularization. DESCRIPTION OF PROCEDURE Informed consent was obtained from the patient. She was taken to the operating room and placed supine on the operating room table. An appropriate time-out was taken to ensure the patient's identity, operative site and planned procedure. Two grams of Ancef was administered prior to the skin incision and was re-bolused four hours into the case as per usual pharmacokinetic dictated protocol. Everyone in the room agreed with the time-out and we proceeded. Her bilateral extremities and left arm were prepped and draped. An incision made in the patient's left groin, carried down through the subcutaneous tissue with electrocautery. Dense scar tissue was encountered. The common femoral artery previous bypass and profunda femoris arteries were identified. Two separate branches of the common femoral artery were also identified and encircled with VesseLoops. The external iliac artery was identified and encircled with a VesseLoop. A separate incision was made in the calf below the knee, carried down through the subcutaneous tissue with electrocautery. The muscle was retracted posteriorly. The popliteal vein was identified and the below knee popliteal artery was daily identified and encircled with a VesseLoop. We then dissected out the saphenous vein using a skip incision. The saphenous vein was dissected from the below knee popliteal incision all the way back up to the saphenofemoral junction. The side branch here ligated with 3-0 silk. The vein was then excised and flushed and 6-0 Prolene was used for hemostasis. A tunnel was then created from the below knee popliteal artery back up to the groin with a linear tunneler. The patient was systemically heparinized and the ACT was kept greater than 250. Proximal control of the external iliac artery and distal control of both common femoral artery branches and the profunda was obtained with profunda clamps and a longitudinal arteriotomy was made with an 11 blade. The previous bypass graft proximally was excised and the entire common femoral down to the profunda was opened longitudinally and endarterectomized. A bovine pericardial patch was brought up onto the field and sewn on as a patch with a running 5-0 Prolene suture. At completion, it was flushed, noted to be hemostatic. There were Doppler signals in all three outflow branches of the groin reconstruction. The clamps were then reapplied and a longitudinal patchotomy was made with an 11 blade, extended with Addison scissors. The vein had been marked for orientation, was spatulated and sewn end-to-side in reverse fashion with running 6-0 Prolene suture. At completion, it was flushed and noted to be hemostatic. The vein was allowed to distend. It was marked for orientation and then passed through the tunnel that was previously created. Proximal and distal control of the below knee popliteal artery was obtained with Profunda clamps and a longitudinal arteriotomy was made with an 11 blade and extended with Derrell scissors. The vein was cut to an appropriate length, spatulated and sewn end-to-side with running 5-0 Prolene suture. At the completion, it was flushed and noted to be hemostatic. There was a nice palpable pulse distal to the graft and Doppler signals in the foot. The entire wound was made hemostatic. The heparin was reversed with Protamine and the wounds were irrigated and closed with 2-0 Polysorb, 3-0 Polysorb and 4-0 Monocryl. The sponge and needle counts were correct at the end of the case. I was present and scrubbed for the entire procedure. MD ZAID Puente/CONNIE /9:24 PM /6:41 AM
[2016-09-26 07:16] LABS: BICARBONATE 31.5 MEQ/L (21.0-32.0); POTASSIUM 3.8 MEQ/L (3.5-5.1)
[2016-09-26] MEDS: DOCUSATE SODIUM 100 MG CAP PO SCH ×2 (08:57→20:40)
[2016-09-26] MEDS: FOLIC ACID 1 MG TAB PO SCH (08:58)
[2016-09-26] MEDS: valACYclovir HCL 500 MG TAB PO SCH (08:58)
[2016-09-26] MEDS: ASPIRIN 81 MG CHEW TAB PO SCH (08:58)
[2016-09-26] MEDS: PANTOPRAZOLE SOD 40 MG DELAYED RELEASE TAB PO SCH (08:59)
[2016-09-26] MEDS: buPROPion HCL 100 MG SUSTAINED RELEASE TAB PO SCH ×2 (09:00→20:41)
[2016-09-26] MEDS: HYDROXYCHLOROQUINE SULFATE 200 MG TAB PO SCH ×2 (09:00→20:41)
[2016-09-26] MEDS: MULTIVITAMINS/MINERALS THERAPEUTIC TAB PO SCH (09:00)
[2016-09-26] MEDS: CHOLECALCIFEROL (VIT D3) 5000 UNIT CAP PO SCH (09:02)
--- NOTE | 2016-09-26 10:00 | PD.VS.PN ---
Subjective POD #: 2 Procedure(s): L groin reconstruction, LLE bypass with reversed GSV Subjective/Hospital Course OOB yesterday - pain controlled feels well overall, foot much better Objective Vitals/I&O Date Time Temp Pulse Resp B/P Pulse Ox O2 Delivery O2 Flow Rate FiO2 09/26/16 06:00 78 09/26/16 06:00 20 09/26/16 05:00 72 09/26/16 04:54 75 09/26/16 04:38 98.7 77 100/62 97 09/26/16 03:00 78 09/26/16 02:00 72 09/26/16 01:00 74 09/26/16 00:00 74 09/25/16 23:00 99.3 71 97/61 98 09/25/16 23:00 82 09/25/16 22:00 82 09/25/16 21:46 18 09/25/16 21:00 84 09/25/16 20:00 80 09/25/16 19:00 64 09/25/16 19:00 98.9 81 105/67 100 09/25/16 18:00 87 09/25/16 17:55 18 09/25/16 17:00 87 09/25/16 16:30 98.1 68 18 107/61 98 09/25/16 16:00 87 09/25/16 15:00 77 09/25/16 14:00 87 09/25/16 13:00 82 09/25/16 12:00 70 09/25/16 11:13 18 09/25/16 11:00 75 09/25/16 11:00 98.0 68 17 125/62 97 09/25/16 11:00 77 09/25/16 10:00 75 09/26/16 09/26/16 09/26/16 07:00 15:00 23:00 Intake Total 720 ml Output Total 500 ml Balance 220 ml Exam: L groin and L thigh incision with skin vac in place L calf incision c/d/i Pulses: Doppler signals L PT and DP Laboratory Laboratory Tests Test 09/26/16 06:08 White Blood Count 7.8 Red Blood Count 3.52 Hemoglobin 11.3 Hematocrit 33.4 Mean Corpuscular Volume 95.0 Mean Corpuscular Hemoglobin 32.1 Mean Corpuscular Hemoglobin 33.8 Concent Red Cell Distribution Width 13.8 Platelet Count 201 Mean Platelet Volume 8.6 Sodium Level 144 Potassium Level 3.8 Chloride Level 106 Carbon Dioxide Level 31.5 Anion Gap 7 Blood Urea Nitrogen 10 Creatinine 0.75 Estimat Glomerular Filtration 79 Rate Random Glucose 92 Calcium Level 8.6 Assessment and Plan Plan OOB ad juhi diet PT Reg diet and meds HL IVF D/C planning Will remove skin vacs tomorrow . Discharge Planning 2-3 days Jamari Mary MD Sep 26, 2016 10:00
[2016-09-26] MEDS: ENOXAPARIN SODIUM 40 MG/0.4 ML SYRINGE SQ SCH (13:37)
[2016-09-26] MEDS: HYDROmorphone HCL PCA 6 MG/30 ML IV SCH (16:04)
[2016-09-26] MEDS: BACLOFEN 20 MG TAB PO PRN (20:41)
[2016-09-26] MEDS: ATORVASTATIN 40 MG TAB PO SCH (20:41)
[2016-09-26] MEDS: TOPIRAMATE 100 MG TAB PO PRN (20:41)
[2016-09-27] VITALS (12 sets, daily range): BP systolic 109–110; BP diastolic 54–65; PULSE 70–90; RESP 20; TEMP 97.4; O2SAT 98
[2016-09-27] MEDS: PCA - TOTAL MG DILAUDID DELIVERED PER SHIFT OTHER SCH (06:00)
[2016-09-27] MEDS: LEVOTHYROXINE SODIUM 150 MCG TAB PO SCH (06:14)
--- NOTE | 2016-09-27 07:55 | PD.VS.PN ---
Subjective POD #: 3 Procedure(s): L groin reconstruction, LLE bypass with reversed GSV Subjective/Hospital Course OOB yesterday - pain controlled; ambulated without difficulty around nursing station Tolerated po wants to go home today Objective Vitals/I&O Date Time Temp Pulse Resp B/P Pulse Ox O2 Delivery O2 Flow Rate FiO2 09/27/16 06:00 70 09/27/16 06:00 16 09/27/16 05:00 74 09/27/16 04:49 75 09/27/16 03:34 76 09/27/16 03:14 79 109/54 98 09/27/16 02:00 90 09/27/16 01:00 80 09/27/16 00:00 82 09/26/16 23:36 99.4 80 101/62 99 09/26/16 23:00 77 09/26/16 22:00 80 09/26/16 21:27 18 09/26/16 21:00 86 09/26/16 20:00 84 09/26/16 19:00 98.5 82 121/77 100 09/26/16 19:00 87 09/26/16 18:02 77 09/26/16 17:23 90 09/26/16 16:04 17 09/26/16 16:00 88 09/26/16 15:30 98.8 87 20 108/65 96 09/26/16 15:00 88 09/26/16 14:13 74 09/26/16 13:00 74 09/26/16 12:00 97.8 88 16 107/61 98 09/26/16 12:00 84 09/26/16 11:00 82 09/26/16 10:00 84 09/26/16 09:00 84 09/26/16 08:00 68 09/27/16 09/27/16 09/27/16 07:00 15:00 23:00 Intake Total 480 ml Output Total 1110 ml Balance -630 ml Exam: L groin and thigh and calf incisions mildly ecchymotic but intact foot warm Pulses: Strong DP/PT Doppler signals Assessment and Plan Plan D/C to home today with RTC 2 weeks with MAC/GS. Will schedule . Discharge Planning today Jamari Mary MD Sep 27, 2016 07:55
[2016-09-27] MEDS: MULTIVITAMINS/MINERALS THERAPEUTIC TAB PO SCH (08:45)
[2016-09-27] MEDS: FOLIC ACID 1 MG TAB PO SCH (08:45)
[2016-09-27] MEDS: PANTOPRAZOLE SOD 40 MG DELAYED RELEASE TAB PO SCH (08:45)
[2016-09-27] MEDS: buPROPion HCL 100 MG SUSTAINED RELEASE TAB PO SCH (08:45)
[2016-09-27] MEDS: DOCUSATE SODIUM 100 MG CAP PO SCH (08:45)
[2016-09-27] MEDS: valACYclovir HCL 500 MG TAB PO SCH (08:45)
[2016-09-27] MEDS: CHOLECALCIFEROL (VIT D3) 5000 UNIT CAP PO SCH (08:45)
[2016-09-27] MEDS: HYDROXYCHLOROQUINE SULFATE 200 MG TAB PO SCH (08:46)
[2016-09-27] MEDS: ASPIRIN 81 MG CHEW TAB PO SCH (08:46)
--- NOTE | 2016-09-27 08:52 | PD.VS.DC ---
Discharge Summary Admission Date: Sep 24, 2016 at 14:39 Discharge Date: Sep 27, 2016 Admission Diagnosis: (1) PAD (peripheral artery disease) Discharge Diagnosis: (1) PAD (peripheral artery disease) Status: Chronic Brief History from admission Pt was admitted for L LE rest pain , PAD Procedure(s): L groin reconstruction, LLE bypass with reversed GSV Significant Findings GENERAL: A&OX3, NAD, GCS15 SKIN: Warm and dry. incisions to left leg intact, slight erythema noted at the incision line left groin no swelling or drainage. NECK: Supple, No JVD distention CARDIOVASCULAR: +S1,S2 with RRR RESPIRATORY: Breath sounds equal bilaterally. No accessory muscle use. GASTROINTESTINAL: Abdomen soft, non-tender, nondistended. MUSCULOSKELETAL: minimal swelling noted to left LE Strong triphasic DP/PT heard via doppler to LLE Bilat LE warm with cap refill less than 3 sec Laboratory Tests Test 09/24/16 09/25/16 09/26/16 21:44 05:35 06:08 White Blood Count 12.5 TH/MM3 (4.0-11.0) Red Blood Count 3.79 MIL/MM3 3.55 MIL/MM3 3.52 MIL/MM3 (4.00-5.30) (4.00-5.30) (4.00-5.30) Estimat Glomerular Filtration 59 ML/MIN (>89) 78 ML/MIN (>89) 79 ML/MIN (>89) Rate Random Glucose 113 MG/DL (74-106) Calcium Level 7.9 MG/DL 8.3 MG/DL (8.5-10.1) (8.5-10.1) Hemoglobin 11.5 GM/DL 11.3 GM/DL (11.6-15.3) (11.6-15.3) Hematocrit 33.4 % 33.4 % (35.0-46.0) (35.0-46.0) Hospital Course: Pt was admitted for L LE rest pain, PAD Post angiogram, findings were a Stenosis proximal L profunda, Occluded L LE bypass, Occluded SFA stents. Surgical intervention L groin reconstruction, LLE bypass with reversed GSV was done on 09/24/16 Pt has done well post op with no complications Pt will f/u in our OPC in 2 weeks Allergies Coded Allergies Type Severity Reaction Last Updated Verified Benzocaine Allergy Severe SHORTNESS OF BREATH - "CHANDU" 09/06/16 Yes Codeine Allergy Severe ITCHY 09/06/16 Yes Iodinated Contrast Media Allergy Severe SOB 09/06/16 Yes Iodine Allergy Severe SOB 09/06/16 Yes Lidocaine Allergy Severe Shortness of Breath 09/06/16 Yes Lisinopril Allergy Severe causes liver failure 09/06/16 Yes Lortab Allergy Severe ITCH 09/06/16 Yes Lovastatin Allergy Severe LIVER FAILURE 09/06/16 Yes Morphine Allergy Severe ITCHY 09/06/16 Yes Novocain Allergy Severe Anaphylaxis 09/06/16 Yes Tricor Allergy Severe Cough 09/06/16 Yes Tylenol #3 Allergy Severe Itching 09/06/16 Yes 09/25///// 05:59 17:59 05:59 17:59 05:59 17:59 Intake Total 1263 ml 2420 ml 600 ml 480 ml Output Total 1800 ml 1850 ml 2150 ml 1110 ml Balance -537 ml 570 ml -1550 ml -630 ml Intake Oral 720 ml 2020 ml 600 ml 480 ml IV Total 543 ml 400 ml Output Urine Total 1800 ml 1850 ml 2150 ml 1110 ml # Bowel Movements 1 Laboratory Tests Test 09/24/16 09/25/16 09/26/16 21:44 05:35 06:08 White Blood Count 12.5 TH/MM3 9.7 TH/MM3 7.8 TH/MM3 Red Blood Count 3.79 MIL/MM3 3.55 MIL/MM3 3.52 MIL/MM3 Hemoglobin 12.2 GM/DL 11.5 GM/DL 11.3 GM/DL Hematocrit 35.6 % 33.4 % 33.4 % Mean Corpuscular Volume 93.8 FL 94.0 FL 95.0 FL Mean Corpuscular Hemoglobin 32.2 PG 32.3 PG 32.1 PG Mean Corpuscular Hemoglobin 34.3 % 34.4 % 33.8 % Concent Red Cell Distribution Width 13.7 % 13.5 % 13.8 % Platelet Count 274 TH/MM3 235 TH/MM3 201 TH/MM3 Mean Platelet Volume 8.7 FL 8.6 FL 8.6 FL Sodium Level 142 MEQ/L 144 MEQ/L 144 MEQ/L Potassium Level 3.8 MEQ/L 3.6 MEQ/L 3.8 MEQ/L Chloride Level 105 MEQ/L 106 MEQ/L 106 MEQ/L Carbon Dioxide Level 30.6 MEQ/L 31.0 MEQ/L 31.5 MEQ/L Anion Gap 6 MEQ/L 7 MEQ/L 7 MEQ/L Blood Urea Nitrogen 15 MG/DL 13 MG/DL 10 MG/DL Creatinine 0.97 MG/DL 0.76 MG/DL 0.75 MG/DL Estimat Glomerular Filtration 59 ML/MIN 78 ML/MIN 79 ML/MIN Rate Random Glucose 113 MG/DL 85 MG/DL 92 MG/DL Calcium Level 7.9 MG/DL 8.3 MG/DL 8.6 MG/DL Procedure Category Date Status Time Cefazolin 2 Gm Premix MED 09/24/16 Complete (Ancef 2 Gm Premix 08:44 Heparin Inj (Heparin MED 09/24/16 Complete Inj) 08:44 Protamine Sulfate Inj MED 09/24/16 Complete (Protamine Sulfate 08:44 Bupropion Sr 12 Hr MED 09/24/16 In Process (Wellbutrin Sr 12 Hr) 10:45 Thrombin [place] MED 09/24/16 Complete (Thrombin [place]) 12:25 Admit To Inpatient ADMITTING 09/24/16 Transmitted Code Status CODE 09/24/16 Transmitted 13:37 Vital Signs (Adult) [facility] 09/24/16 Complete 13:37 Inventory Control Manager / [facility] 09/24/16 Complete Telemetry 13:37 Activity Bed Rest [facility] 09/24/16 In Process 13:37 ^ Notify Dr. GUPTA 09/24/16 In Process Parameters 13:37 ^ Precautions [facility] 09/24/16 In Process 13:37 ^ Vac Dressing To Be [facility] 09/24/16 In Process Used 13:37 Diet Heart Healthy DIET 09/24/16 Transmitted Lunch Basic Metabolic Panel LAB 09/24/16 Complete (Bmp) 13:37 Basic Metabolic Panel LAB 09/25/16 Complete (Bmp) 06:00 Cbc No Diff, Includes LAB 09/24/16 Complete Plts 13:37 Cbc No Diff, Includes LAB 09/25/16 Complete Plts 06:00 Case Management CONS 09/24/16 Transmitted Consult Consult Pt Eval & PT 09/24/16 Logged Treat 13:37 Lactated Ringer's MED 09/24/16 Complete 1000 Ml Inj (Lr 1000 M 13:37 Aspirin Chew (Aspirin MED 09/25/16 In Process Chew) 09:00 Docusate Sodium MED 09/24/16 In Process (Colace) 21:00 Inpatient ADMITTING 09/24/16 Transmitted Certification Activity Oob With CANDY 09/25/16 In Process Assistance 08:00 ^ Monitor CANDY 09/24/16 In Process 13:37 ^ Notify Dr: Other CANDY 09/24/16 In Process 13:37 ^ Notify Dr: Blood CANDY 09/24/16 In Process Pressure 13:37 ^ Notify Dr: CANDY 09/24/16 In Process Respiratory Rate 13:37 Naloxone Inj (Narcan MED 09/24/16 In Process Inj) 13:45 Hydromorphone Office Equipment Technician Inj MED 09/24/16 In Process (Dilaudid Office Equipment Technician Inj) 13:45 Office Equipment Technician Total Dose - MED 09/24/16 In Process Dilaudid 14:00 Enoxaparin Inj MED 09/25/16 In Process (Lovenox Inj) 13:00 Fentanyl Inj MED 09/24/16 Complete (Fentanyl Inj) 14:05 *Meperidine Inj MED 09/24/16 Complete (*Demerol Inj 14:31 Class V [facility] Complete General/[facility]u [facility] 09/24/16 Complete Post Anesthesia [facility] 09/[facility]16 Complete Urinary Catheter - [place] 09/25/16 Transmitted Remove 06:00 Activity Oob With CANDY 09/24/16 In Process Assistance 18:29 Consult Pt Eval & PT 09/24/16 Complete Treat 18:29 Equip, Office Equipment Technician Pump Use Of SPD 09/24/16 Logged 18:43 Cbc No Diff, Includes LAB 09/26/16 Complete Plts 06:00 Basic Metabolic Panel LAB 09/26/16 Complete (Bmp) 06:00 Potassium Chloride MED 09/25/16 Complete (Kcl) 07:00 Baclofen (Lioresal) MED 09/25/16 In Process 14:30 Hydroxychloroquine MED 09/25/16 In Process (Plaquenil) 21:00 Propofol 200 Mg/20 Ml MED 09/24/16 Complete Inj (Diprivan 200 14:03 Neostigmine Inj MED 09/24/16 Complete (Prostigmin Inj) 14:03 Ondansetron Inj MED 09/24/16 Complete (Zofran Inj) 14:03 Lactated Ringer's MED 09/24/16 Complete 1000 Ml Inj (Lr 1000 M 14:03 Attending Discharge DISCHARGE 09/27/16 Transmitted Order Vital Signs Date Time Temp Pulse Resp B/P Pulse Ox O2 Delivery O2 Flow Rate FiO2 09/27/16 06:00 70 09/27/16 06:00 16 09/27/16 05:00 74 09/27/16 04:49 75 09/27/16 03:34 76 09/27/16 03:14 79 109/54 98 09/27/16 02:00 90 09/27/16 01:00 80 09/27/16 00:00 82 09/26/16 23:36 99.4 80 101/62 99 09/26/16 23:00 77 09/26/16 22:00 80 09/26/16 21:27 18 09/26/16 21:00 86 09/26/16 20:00 84 09/26/16 19:00 98.5 82 121/77 100 09/26/16 19:00 87 09/26/16 18:02 77 09/26/16 17:23 90 09/26/16 16:04 17 09/26/16 16:00 88 09/26/16 15:30 98.8 87 20 108/65 96 09/26/16 15:00 88 09/26/16 14:13 74 09/26/16 13:00 74 09/26/16 12:00 97.8 88 16 107/61 98 09/26/16 12:00 84 09/26/16 11:00 82 09/26/16 10:00 84 09/26/16 09:00 84 09/26/16 08:00 68 09/26/16 07:30 99.1 67 18 106/60 98 09/26/16 07:00 82 09/26/16 06:00 78 09/26/16 06:00 20 09/26/16 05:00 72 09/26/16 04:54 75 09/26/16 04:38 98.7 77 100/62 97 09/26/16 03:00 78 09/26/16 02:00 72 09/26/16 01:00 74 09/26/16 00:00 74 09/25/16 23:00 99.3 71 97/61 98 09/25/16 23:00 82 09/25/16 22:00 82 09/25/16 21:46 18 09/25/16 21:00 84 09/25/16 20:00 80 09/25/16 19:00 64 09/25/16 19:00 98.9 81 105/67 100 09/25/16 18:00 87 09/25/16 17:55 18 09/25/16 17:00 87 09/25/16 16:30 98.1 68 18 107/61 98 09/25/16 16:00 87 09/25/16 15:00 77 09/25/16 14:00 87 09/25/16 13:00 82 09/25/16 12:00 70 09/25/16 11:13 18 09/25/16 11:00 75 09/25/16 11:00 98.0 68 17 125/62 97 09/25/16 11:00 77 09/25/16 10:00 75 09/25/16 09:00 75 09/25/16 08:00 80 09/25/16 07:55 98.3 71 16 100/66 98 09/25/16 07:55 86 09/25/16 07:00 75 09/25/16 06:00 74 09/25/16 05:26 16 09/25/16 05:03 72 09/25/16 04:42 63 09/25/16 03:20 98.8 79 18 120/70 98 09/25/16 03:07 72 09/25/16 02:00 72 09/25/16 01:16 74 09/25/16 00:32 77 09/24/16 23:35 98.7 63 16 121/86 97 09/24/16 23:00 68 09/24/16 22:00 66 09/24/16 21:34 16 09/24/16 21:00 78 09/24/16 20:00 82 09/24/16 19:40 97.6 77 18 115/63 96 09/24/16 19:00 78 09/24/16 18:23 64 09/24/16 17:35 64 09/24/16 16:02 71 09/24/16 15:34 68 09/24/16 15:34 97.8 69 16 155/89 100 09/24/16 15:32 16 09/24/16 15:09 16 09/24/16 14:45 66 14 137/82 99 Nasal Cannula 3 09/24/16 14:30 80 14 168/94 99 Nasal Cannula 3 09/24/16 14:20 16 09/24/16 14:15 72 14 157/91 99 Nasal Cannula 3 09/24/16 14:00 76 14 170/93 99 Nasal Cannula 3 09/24/16 13:54 98.2 68 14 166/93 94 Nasal Cannula 3 Discharge Condition: Good Discharge Disposition: Discharge Home Discharge Instructions: Follow up in 2 weeks in our OPC at scheduled appointment time 10/11/16 Call the office to report any new onset fever Report any new onset of increased redness, drainage or swelling Call the office for any questions or concerns Oumou CORDERO [facility] [phone] Any questions or concerns: Call [facility] Heart and Vascular Surgery at [facility] [phone] Oumou Self Sep 27, 2016 08:51
[2016-09-27] MEDS ORDERED: WALKER WHEELS/F1 MIS (09:07)
== END 2016-09-27 11:26 | disposition home or self-care (01) | DRG 254 ==
LOC: HDOC 12:36 → HDIC 12:37 → HDOC 14:36 → HSDI 14:36 → HCIN 16:21 → OBSVTOIN 09-24 14:39
PROVIDERS: ADMIT Surgery; ATTEND Surgery
PROC: B41G1ZZ Fluoroscopy of Left Lower Extremity Arteries using Low Osmolar Contrast (ICD-10-PCS; 2016-09-23)
PROC: 041L09L Bypass Left Femoral Artery to Popliteal Artery with Autologous Venous Tissue, Open Approach (ICD-10-PCS; 2016-09-24)
PROC: 06BQ0ZZ Excision of Left Saphenous Vein, Open Approach (ICD-10-PCS; 2016-09-24)
PROC: 04UL0KZ Supplement Left Femoral Artery with Nonautologous Tissue Substitute, Open Approach (ICD-10-PCS; 2016-09-24)
PROC: 04CL0ZZ Extirpation of Matter from Left Femoral Artery, Open Approach (ICD-10-PCS; principal; 2016-09-24 08:34)
DX: T82.868A Thrombosis due to vascular prosthetic devices, implants and grafts, initial encounter (principal); I10 Essential (primary) hypertension; I73.9 Peripheral vascular disease, unspecified; E03.9 Hypothyroidism, unspecified; I25.10 Atherosclerotic heart disease of native coronary artery without angina pectoris; E78.5 Hyperlipidemia, unspecified; Z95.5 Presence of coronary angioplasty implant and graft; Z87.891 Personal history of nicotine dependence; Y83.2 Surgical operation with anastomosis, bypass or graft as the cause of abnormal reaction of the patient, or of later complication, without mention of misadventure at the time of the procedure
CPT/HCPCS: 36200; 36246; 75625; 75710; 80048; 85025; 85027; 85610; 86850; 86900; 86901; C1769; C1893; G0378; J0690; J1100; J1170; J1200; J1644; J1650; J2175; J2250; J2405; J2710; J2720; J2930; J3010; J7070; J7120; Q9967

== ENCOUNTER 2016-10-13 20:34 | Emergency (ER) | payer MEDICARE, OTHER ==
[~2016-10-13] VITALS: Ht 170.2 cm; Wt 72.5 kg
[~2016-10-13 20:34] MED LIST changes: +BACL20TA PO; +BIOT7500 PO; +CHOL50008 PO; -CILO100T PO; +EVEN1000 PO; +FOLI400T PO; +KELP150T PO; +LECIGRA PO; -PLAV75TA29 PO; +VITATAB11 PO; +WALKER WHEELS/F1 MIS; +ZINC100T PO
[2016-10-13 21:07] VITALS: BP 137/67; PULSE 70; RESP 20; TEMP 98.1; O2SAT 99
[2016-10-13] MEDS ORDERED: ASPI1TAB69 PO (21:17)
[2016-10-13] MEDS ORDERED: CILO100T PO (21:17)
--- NOTE | 2016-10-13 21:22 | PD ---
HPI Chief Complaint: Wound/Suture/Staple Re-Check Time Seen by Provider: 21:04 Travel History International Travel<30 days: No Contact w/Intl Traveler<30days: No Traveled to known affect area: No History of Present Illness HPI This is a 61-year-old female who presents to the emergency department concerned about her left lower extremity bypass incision. She says that she saw Dr. Mary 2 days ago regarding her wound. At that time she had a scab over the wound and he said he thought it would heal fine. Yesterday in the shower the scab came off and she developed an ulceration on the wound and she is concerned that its not going to heal. She was hoping we could reapproximate the wound. She's not had any fevers, chills or drainage from the wound. PFSH Past Medical History Hx Anticoagulant Therapy: Yes (PLAVIX) Arthritis: Yes Asthma: Yes Atrial Fibrillation: Yes Autoimmune Disease: Yes (LUPUS) Blood Disorders: No Anxiety: Yes Depression: Yes Heart Rhythm Problems: Yes Cancer: Yes (SKIN) Cardiac Catheterization: Yes Cardiovascular Problems: Yes (CAD, GA X 4, THREE CARDIAC STENTS; L fem bypass graft) High Cholesterol: Yes Chemotherapy: No Chest Pain: No Congestive Heart Failure: Yes COPD: Yes Cerebrovascular Accident: Yes Coronary Artery Disease: Yes Diabetes: No Diminished Hearing: No Endocrine: Yes Gastrointestinal Disorders: No GERD: Yes Glaucoma: No Genitourinary: No Headaches: Yes Hepatitis: No Hiatal Hernia: Yes Heparin Induced Thrombocytopen: No Hypertension: Yes Immune Disorder: Yes (LUPUS FIBROMYALGIA) Implanted Vascular Access Dvce: Yes Musculoskeletal: Yes Neurologic: Yes Psychiatric: Yes (ADD) Reproductive: No Respiratory: No (ASTHMA, 02/28/07 STOPPED SMOKING) Integumentary: No Migraines: Yes Myocardial Infarction: Yes (X 3) Radiation Therapy: No Seizures: No Sleep Apnea: No Thyroid Disease: Yes (HYPOTHYROID) Triglycerides - High: Yes Ulcer: Yes Influenza Vaccination: No ?: Not Menopausal: Yes : 5 Para: 2 Miscarriage: 3 : 0 Past Surgical History Abdominal Surgery: Yes (lap marnie liver bx) Appendectomy: Yes Body Medical Devices: X3 CARDIAC STENTS AND MIGUEL LOWER EXT. STENTS Cardiac Surgery: Yes (x3 cardiac stents) Cholecystectomy: Yes Coronary Artery Bypass Graft: No Coronary Stent: Yes (X7) Ear Surgery: No Endocrine Surgery: No Eye Surgery: Yes (MIGUEL. UPPER BLEPHAROPLASTY) Genitourinary Surgery: Yes Gynecologic Surgery: Yes (hysterectomy) Hysterectomy: Yes Neurologic Surgery: Yes (lower back L4-5, S1 X 3) Oral Surgery: Yes (tonsillectomy) Pacemaker: No Thoracic Surgery: No Tonsillectomy: Yes Other Surgery: Yes (LEFT LEG BYPASS) Family History Family Myocardial Infarction: Yes Social History Alcohol Use: Yes (rarely) Tobacco Use: No Substance Use: No Allergies-Medications (Allergen,Severity, Reaction): Coded Allergies: Benzocaine (Verified Allergy, Severe, SHORTNESS OF BREATH - "CHANDU", ) Codeine (Verified Allergy, Severe, ITCHY, 09/06/16) Iodinated Contrast Media (Verified Allergy, Severe, SOB, 09/06/16) Iodine (Verified Allergy, Severe, SOB, 09/06/16) IV pt states anaphylaxis Lidocaine (Verified Allergy, Severe, Shortness of Breath, 09/06/16) Lisinopril (Verified Allergy, Severe, causes liver failure, 09/06/16) Lortab (Verified Allergy, Severe, ITCH, 09/06/16) pt states oral injectable type causes anaphylaxis Lovastatin (Verified Allergy, Severe, LIVER FAILURE, 09/06/16) Morphine (Verified Allergy, Severe, ITCHY, 09/06/16) Novocain (Verified Allergy, Severe, Anaphylaxis, 09/06/16) Tricor (Verified Allergy, Severe, Cough, 09/06/16) Tylenol #3 (Verified Allergy, Severe, Itching, 09/06/16) Reported Meds & Prescriptions Reported Meds & Active Scripts Active Walker with Front Wheels (Device) 1 Mis Mis 1 Ea .XX DAILY PRN Reported Cilostazol 100 Mg Tab 100 Mg PO BID Aspirin 81 Mg Tabdr 81 Mg PO DAILY Vitamin D3 (Cholecalciferol) 5,000 Unit Tab 5,000 Units PO DAILY Zinc (Zinc Gluconate) 100 Mg Tab 100 Mg PO DAILY Biotin 7,500 Mcg Tab 10,000 Mcg PO DAILY Kelp (Iodine (Kelp)) 150 Mcg Tab 225 Mcg PO DAILY Vitamin B Complex (B-Complex Vitamins) 1 Tab 1,000 Mcg PO DAILY Evening [place] Oil 1,000 Mg Cap 1,300 Mg PO DAILY Lecithin (Soybean Lecithin (Bulk)) 1 Gra Gra 1,200 Mg PO DAILY Folic Acid 400 Mcg Tab 400 Mcg PO DAILY Topamax (Topiramate) 100 Mg Tab 100 Mg PO BID PRN Wellbutrin Xl 24 HR (Bupropion HCl) 150 Mg Tab 450 Mg PO DAILY Hydrochlorothiazide 12.5 Mg Cap 12.5 Mg PO DAILY Plaquenil (Hydroxychloroquine Sulfate) 200 Mg Tab 200 Mg PO BID Take with food Krill Oil [place]-3 300 mg (Krill Oil) 1 Cap Cap 300 Mg PO DAILY Levothyroxine (Levothyroxine Sodium) 150 Mcg Tab 150 Mcg PO DAILY Simvastatin 20 Mg Tab 20 Mg PO DAILY Valacyclovir (Valacyclovir HCl) 1 Gm Tab 1,000 Mg PO DAILY Multi For Her (Multiple Vitamins W/ Minerals) 1 Cap Cap 1 Tab PO DAILY Metformin (Metformin HCl) 500 Mg Tab 500 Mg PO DAILY With a meal Coq-10 (Coenzyme Q10 (Ubidecarenone)) 100 Mg Cap 100 Mg PO DAILY Review of Systems General / Constitutional: No: Fever, Chills Cardiovascular: No: Chest Pain or Discomfort Physical Exam Narrative GENERAL: Well-appearing, no acute distress, nontoxic SKIN: 1 cm dehisced sense involving the distal aspect of the patient's left upper thigh incision with some ulceration and granulation tissue at the base, dry, with no purulent drainage, surrounding erythema or fluctuance HEAD: Atraumatic. Normocephalic. ENT: No nasal bleeding or discharge. Moist mucous membranes MUSCULOSKELETAL: No obvious deformities. No clubbing. No cyanosis. No edema. NEUROLOGICAL: Awake and alert. No obvious cranial nerve deficits. Motor grossly within normal limits. Normal speech. PSYCHIATRIC: Appropriate mood and affect; insight and judgment normal. Data Data Last Documented VS Vital Signs Date Time Temp Pulse Resp B/P Pulse Ox O2 Delivery O2 Flow Rate FiO2 10/13/16 21:07 98.1 70 20 137/67 99 MDM Medical Decision Making Medical Screen Exam Complete: Yes Emergency Medical Condition: Yes Differential Diagnosis Wound infection, wound dehiscence, cellulitis Narrative Course This is a 61-year-old female who presents to the emergency department with a small dehiscence of her bypass incision. There is a granulated base and the dehiscence appears subacute. Her surgery was in late September. I don't think there is an acute infection and I don't think there is any intervention necessary at this time. She was instructed to clean the wound with soap and water twice daily and apply topical antibiotic and follow-up with Dr. Mary. Diagnosis Primary Impression: Wound dehiscence Patient Instructions: General Instructions Additional Instructions: If you develop fever, increasing redness, warmth, or spreading of your infection , or severe pain return to the emergency department. Follow-up with your surgeon. Med/Other Pt SpecificInfo: No Change to Meds Disposition: 01 DISCHARGE HOME Condition: Stable Iram Simmons MD Oct 13, 2016 21:22
== END 2016-10-13 21:33 | disposition home or self-care (01) ==
LOC: PHED 20:34
DX: T81.31XA Disruption of external operation (surgical) wound, not elsewhere classified, initial encounter (principal)
CPT/HCPCS: 99282

== ENCOUNTER 2016-10-28 13:43 | Inpatient (IN) | payer MEDICARE, OTHER ==
[2016-10-28] VITALS (8 sets, daily range): BP systolic 121; BP diastolic 67–72; PULSE 78–87; RESP 18; TEMP 98–98.5; O2SAT 98–100
[~2016-10-28 13:43] MED LIST changes: +ASPI1TAB69 PO; -BACL20TA PO; +CILO100T PO
[2016-10-28] MEDS ORDERED: BACL20TA PO (16:59)
[2016-10-28] MEDS: VANCOMYCIN 1,000 MG/NS 250 ML IV SCH ×2 (17:34)
[2016-10-28] MEDS: MORPHINE SULFATE 4 MG/ML INJ IV PUSH PRN ×2 (17:35→20:22)
[2016-10-28] MEDS: PIPERACIL-TAZO 3.375 GM PREMIX 50 ML IV SCH (18:20)
[2016-10-28 18:44] LABS: BICARBONATE 29.1 MEQ/L (21.0-32.0); POTASSIUM 3.4 MEQ/L (3.5-5.1)
[2016-10-28] MEDS: CILOSTAZOL 100 MG TAB PO SCH (20:27)
[2016-10-28] MEDS ORDERED: predniSONE 50 MG TAB PO SCH (21:00)
[2016-10-28] MEDS: CHOLECALCIFEROL (VIT D3) 5000 UNIT CAP PO SCH (22:22)
[2016-10-28] MEDS: BACLOFEN 20 MG TAB PO SCH (22:22)
[2016-10-28] MEDS: HYDROXYCHLOROQUINE SULFATE 200 MG TAB PO SCH (22:22)
[2016-10-28] MEDS: TOPIRAMATE 100 MG TAB PO PRN (22:22)
[2016-10-29] VITALS (22 sets, daily range): BP systolic 122–161; BP diastolic 68–88; PULSE 76–106; RESP 18; TEMP 97.5–98.5; O2SAT 97–100
[2016-10-29] MEDS ORDERED: predniSONE 50 MG TAB PO SCH ×2 (01:00→07:00)
[2016-10-29] MEDS: PIPERACIL-TAZO 3.375 GM PREMIX 50 ML IV SCH ×4 (01:02→18:11)
[2016-10-29] MEDS: VANCOMYCIN 1,000 MG/NS 250 ML IV SCH ×4 (05:09→17:04)
[2016-10-29] MEDS: LEVOTHYROXINE SODIUM 150 MCG TAB PO SCH (05:09)
[2016-10-29] MEDS: BACLOFEN 20 MG TAB PO SCH ×3 (05:09→22:43)
[2016-10-29] MEDS ORDERED: diphenhydrAMINE HCL 50 MG CAP PO SCH (07:00)
[2016-10-29] MEDS: MORPHINE SULFATE 4 MG/ML INJ IV PUSH PRN (07:17)
[2016-10-29] MEDS: TOPIRAMATE 100 MG TAB PO PRN ×2 (07:22→19:20)
[2016-10-29 07:29] LABS: HEMATOCRIT 36.4 % (35.0-46.0); MEAN CORPUSCULAR HEMOGLOBIN 31.7 PG (27.0-34.0); MEAN CORPUSCULAR HGB CONC 34.1 % (32.0-36.0); PLATELET COUNT 284 TH/MM3 (150-450); RED BLOOD COUNT 3.92 MIL/MM3 (4.00-5.30); RED CELL DISTRIBUTION WIDTH 13.3 % (11.6-17.2); REVIEW FLAG FINAL; WHITE BLOOD COUNT 6.6 TH/MM3 (4.0-11.0)
[2016-10-29 08:04] LABS: BICARBONATE 25.1 MEQ/L (21.0-32.0); POTASSIUM 4.2 MEQ/L (3.5-5.1)
[2016-10-29] MEDS: ASPIRIN EC 81 MG TABEC PO SCH (08:09)
[2016-10-29] MEDS: metFORMIN HCL 500 MG TAB PO SCH (08:09)
[2016-10-29] MEDS: VITAMIN B COMPLEX/VIT C TAB PO SCH (08:12)
[2016-10-29] MEDS: PRAVASTATIN SOD 40 MG TAB PO SCH (08:12)
[2016-10-29] MEDS: buPROPion HCL 150 MG EXTENDED RELEASE TAB PO SCH (08:12)
[2016-10-29] MEDS: MULTIVITAMIN TAB PO SCH (08:12)
[2016-10-29] MEDS: CHOLECALCIFEROL (VIT D3) 5000 UNIT CAP PO SCH ×2 (08:13→22:43)
[2016-10-29] MEDS: CILOSTAZOL 100 MG TAB PO SCH ×2 (08:13→21:00)
[2016-10-29] MEDS: HYDROXYCHLOROQUINE SULFATE 200 MG TAB PO SCH ×2 (08:13→22:43)
[2016-10-29] MEDS ORDERED: IOHEXOL 350 MG/ML 10 ML VIAL (for RAD DIAG) IV ONE (08:53)
[2016-10-29] MEDS ORDERED: PNEUMOCOCCAL POLYVALENT INJ 25 MCG/0.5 ML SYR IM ONE (10:00)
--- NOTE | 2016-10-29 10:51 | RADRPT ---
EXAM DATE/TIME: 10/29/2016 08:34 [place] COMPARISON: CTA RUNOFF W 3D RECON, September 07, 2016, 14:47. INDICATIONS : Left groin abscess, recent left lower extremity bypass. IV CONTRAST: 100 cc Omnipaque 350 (iohexol) IV RADIATION DOSE: 3.48 CTDIvol (mGy) MEDICAL HISTORY : Cerebrovascular disease. Congestive heart failure. Chronic obstructive pulmonary disease. SURGICAL HISTORY : Appendectomy. Cholecystectomy.Hysterectomy.Cardiac stents. Back surgery. Left leg bypass. ENCOUNTER: Initial ACUITY: 4 - 6 days PAIN SCALE: 8/10 LOCATION: Left groin Patient was premedicated for underlying contrast media allergy. TECHNIQUE: Volumetric scanning was performed using a multi-row detector CT scanner. The data was post processed with a variety of visualization algorithms including full volume maximum intensity projection, multi -planar sliding thin slab reformation, curved planar reformation, and surface rendering techniques. Using automated exposure control and adjustment of the mA and/or kV according to patient size, radiat ion dose was kept as low as reasonably achievable to obtain optimal diagnostic quality images. FINDINGS: Examination of the lung bases demonstrates no abnormality. No pleural fluid is identified. No pulmona ry nodules are present. The liver and spleen are normal in size and no focal defects are identified. The gallbladder is absent. The pancreas demonstrates normal contour without evidence of mass or ducta l dilatation. The adrenal glands and kidneys appear normal bilaterally. No hydronephrosis or mass les ions are identified. There is diverticulosis without evidence of diverticulitis. The aorta is normal in caliber. There is no evidence of aneurysm or dissection. The renal artery orig ins are patent bilaterally. The celiac axis and superior mesenteric artery origins are also patent. A n accessory right renal artery is present. Examination of the right lower extremity demonstrates no evidence of inflow stenosis. The common femo ral artery is patent. A stent is in place in the right superficial femoral artery with multiple areas of stenosis and a small caliber collapsed vessel. Intimal hyperplasia is present within the stent. N o segmental occlusion is identified. The popliteal artery is patent. There is severe three-vessel inf rapopliteal disease. Multiple areas of stenosis are identified. Examination of the left lower extremity demonstrates no evidence of inflow stenosis. The common femor al artery is patent. There is an occluded [place] superficial femoral artery as as well as an occluded bypass. An additional bypass is present medially with a fluid collection adjacent to the bypass raymundo uring 3 CM by 4.5 CM in length which may reflect seroma, hematoma or abscess. No gas is identified. T he bypass graft is patent. The popliteal artery is patent. There is severe three-vessel infrapoplitea l disease. CONCLUSION: 1. No evidence of inflow stenosis. 2. Patent left femoral-popliteal bypass graft with fluid collection adjacent to the graft may reflect postoperative change though abscess cannot be excluded. 3. Severe three-vessel infrapopliteal disease bilaterally Ford Wynn MD on October 29, 2016 at 10:39 Board Certified Radiologist. This report was verified electronically.
--- NOTE | 2016-10-29 11:24 | PD.VS.PN ---
Subjective Subjective/Hospital Course Pt assessed at 0900 this am Left groin incision with improved redness and drainage since yesterday (office visit) Objective Vitals/I&O Date Time Temp Pulse Resp B/P Pulse Ox O2 Delivery O2 Flow Rate FiO2 10/29/16 07:22 18 10/29/16 06:00 83 10/29/16 05:00 78 10/29/16 04:00 80 10/29/16 04:00 98.0 78 18 122/68 98 10/29/16 03:00 80 10/29/16 02:00 80 10/29/16 01:00 82 10/29/16 00:00 84 10/29/16 00:00 98.5 92 18 126/75 98 10/28/16 23:00 82 10/28/16 22:00 82 10/28/16 21:00 80 10/28/16 20:00 86 10/28/16 20:00 98.0 80 18 121/67 98 10/28/16 19:00 84 10/28/16 18:00 78 10/28/16 17:00 80 10/28/16 16:15 98.5 87 18 121/72 100 Physical Exam GENERAL: Pt A&OX3, GCS 15, NAD SKIN: Warm and dry. Left groin incision with improved redness and drainage since yesterday afternoon. +serosanguineous with slight brown/pink thickened drainage noted. Redness from Left groin to abdomen decreased since last assessment. - rash. Healing LLE incisions from upper thigh to calf region NECK: Supple, No JVD CARDIOVASCULAR: RRR, +S1,S2 without M/G/R RESPIRATORY: BS equal and clear bilaterally GASTROINTESTINAL: Abdomen soft, non-tender, nondistended. MUSCULOSKELETAL: No cyanosis, or edema. + stong triphasic signals DP/PT heard via doppler BLE Laboratory Laboratory Tests Test 10/28/16 10/29/16 10/29/16 17:49 06:51 06:57 Sodium Level 142 141 Potassium Level 3.4 4.2 Chloride Level 107 107 Carbon Dioxide Level 29.1 25.1 Anion Gap 6 9 Blood Urea Nitrogen 12 11 Creatinine 0.83 0.79 Estimat Glomerular Filtration 70 74 Rate Random Glucose 88 177 Calcium Level 9.0 9.6 Blood Type A POSITIVE Antibody Screen NEGATIVE Crossmatch Leukocyte-Reduced Red Blood Cells Blood Bank Comment White Blood Count 6.6 Red Blood Count 3.92 Hemoglobin 12.4 Hematocrit 36.4 Mean Corpuscular Volume 93.0 Mean Corpuscular Hemoglobin 31.7 Mean Corpuscular Hemoglobin 34.1 Concent Red Cell Distribution Width 13.3 Platelet Count 284 Mean Platelet Volume 8.4 Imaging Last 48 hours Impressions Aorta w/Runoff CTA 10/29/16 0000 Signed Impressions: Service Date/Time: Saturday, October 29, 2016 08:34 - CONCLUSION: 1. No evidence of inflow stenosis. 2. Patent left femoral-popliteal bypass graft with fluid collection adjacent to the graft may reflect postoperative change though abscess cannot be excluded. 3. Severe three-vessel infrapopliteal disease bilaterally Ford Wynn MD Assessment and Plan Assessment: (1) Left leg pain Status: Acute Plan Plan Continue MIVF Pt will remain NPO Potential for surgical intervention this afternoon Oumou Self [facility]/[place] [phone] Oumou Self Oct 29, 2016 11:24
[2016-10-29] MEDS: HYDROmorphone HCL PF 1 MG/ML VIAL IV PRN ×2 (18:16→22:44)
[2016-10-30] VITALS (22 sets, daily range): BP systolic 125–143; BP diastolic 69–91; PULSE 70–112; RESP 16–18; TEMP 97.5–98.9; O2SAT 95–99
[2016-10-30] MEDS: LEVOTHYROXINE SODIUM 150 MCG TAB PO SCH (05:05)
[2016-10-30] MEDS: BACLOFEN 20 MG TAB PO SCH ×3 (05:05→22:55)
[2016-10-30] MEDS: VANCOMYCIN 1,000 MG/NS 250 ML IV SCH ×4 (05:05→16:42)
[2016-10-30] MEDS: HYDROmorphone HCL PF 1 MG/ML VIAL IV PRN ×3 (05:14→17:41)
[2016-10-30] MEDS: buPROPion HCL 150 MG EXTENDED RELEASE TAB PO SCH (08:20)
[2016-10-30] MEDS: ASPIRIN EC 81 MG TABEC PO SCH (08:20)
[2016-10-30] MEDS: PRAVASTATIN SOD 40 MG TAB PO SCH (08:20)
[2016-10-30] MEDS: VITAMIN B COMPLEX/VIT C TAB PO SCH (08:20)
[2016-10-30] MEDS: CHOLECALCIFEROL (VIT D3) 5000 UNIT CAP PO SCH ×2 (08:20→20:42)
[2016-10-30] MEDS: CILOSTAZOL 100 MG TAB PO SCH ×2 (08:21→20:42)
[2016-10-30] MEDS: metFORMIN HCL 500 MG TAB PO SCH (08:21)
[2016-10-30] MEDS: MULTIVITAMIN TAB PO SCH (08:21)
[2016-10-30] MEDS: PIPERACIL-TAZO 3.375 GM PREMIX 50 ML IV SCH ×5 (08:30→22:55)
[2016-10-30] MEDS: HYDROXYCHLOROQUINE SULFATE 200 MG TAB PO SCH ×2 (08:30→20:41)
--- NOTE | 2016-10-30 11:51 | PD.VS.PN ---
Subjective Subjective/Hospital Course Admitted with L groin wound and CT showed induration but no drainable abscess Overnight, pt with less groin discomfort and no F/C. Feels better overall. Keyur diet CTA showed patent bypass without stenoses Objective Vitals/I&O Date Time Temp Pulse Resp B/P Pulse Ox O2 Delivery O2 Flow Rate FiO2 10/30/16 10:02 96 10/30/16 09:32 89 10/30/16 08:15 76 10/30/16 08:15 97.5 83 18 125/84 99 10/30/16 06:00 76 10/30/16 05:00 72 10/30/16 04:00 98.0 76 16 139/76 98 10/30/16 04:00 70 10/30/16 03:00 76 10/30/16 02:00 74 10/30/16 01:00 74 10/30/16 00:00 98.9 79 16 137/91 98 10/30/16 00:00 77 10/29/16 23:00 82 10/29/16 22:00 92 10/29/16 21:00 88 10/29/16 20:00 98.0 82 18 158/72 97 10/29/16 20:00 84 10/29/16 19:00 88 10/29/16 16:00 102 10/29/16 16:00 103 10/29/16 16:00 98.5 106 18 161/74 97 10/29/16 15:00 96 10/29/16 14:00 86 10/29/16 13:00 82 10/29/16 12:00 97.5 83 18 144/88 98 10/29/16 12:00 76 Physical Exam L groin with induration cephalad to wound. Significant improvement in erythema. Fibrinous exudate in wound but doesn't probe beyond 1 cm. More distal wounds with only superficial (1-2mm) separation Leg with mild edema Imaging Last 48 hours Impressions Aorta w/Runoff CTA 10/29/16 0000 Signed Impressions: Service Date/Time: Saturday, October 29, 2016 08:34 - CONCLUSION: 1. No evidence of inflow stenosis. 2. Patent left femoral-popliteal bypass graft with fluid collection adjacent to the graft may reflect postoperative change though abscess cannot be excluded. 3. Severe three-vessel infrapopliteal disease bilaterally Ford Wynn MD Assessment and Plan Assessment: (1) Left leg pain Status: Acute Plan Wound care Continue IV antibiotics. Cardiac diet. OOB ad juhi. Jamari Mary MD Oct 30, 2016 11:51
[2016-10-30] MEDS: TOPIRAMATE 100 MG TAB PO PRN (17:40)
[2016-10-30] MEDS ORDERED: ZOLPIDEM TARTRATE 5 MG TAB PO PRN (21:00)
[2016-10-31] VITALS (20 sets, daily range): BP systolic 118–143; BP diastolic 55–84; PULSE 54–109; RESP 17–20; TEMP 97.7–98.5; O2SAT 98–100
[2016-10-31] MEDS: HYDROmorphone HCL PF 1 MG/ML VIAL IV PRN (00:47)
[2016-10-31] MEDS: VANCOMYCIN 1,000 MG/NS 250 ML IV SCH ×4 (04:42→16:40)
[2016-10-31] MEDS: PIPERACIL-TAZO 3.375 GM PREMIX 50 ML IV SCH ×3 (06:09→16:42)
[2016-10-31] MEDS: LEVOTHYROXINE SODIUM 150 MCG TAB PO SCH (06:09)
[2016-10-31] MEDS: BACLOFEN 20 MG TAB PO SCH ×3 (06:09→21:04)
[2016-10-31 06:17] LABS: HEMATOCRIT 34.4 % (35.0-46.0); MEAN CORPUSCULAR HEMOGLOBIN 31.8 PG (27.0-34.0); MEAN CORPUSCULAR HGB CONC 33.8 % (32.0-36.0); PLATELET COUNT 298 TH/MM3 (150-450); RED BLOOD COUNT 3.66 MIL/MM3 (4.00-5.30); RED CELL DISTRIBUTION WIDTH 13.3 % (11.6-17.2); REVIEW FLAG FINAL; WHITE BLOOD COUNT 10.4 TH/MM3 (4.0-11.0)
[2016-10-31 06:56] LABS: BICARBONATE 27.4 MEQ/L (21.0-32.0); POTASSIUM 3.6 MEQ/L (3.5-5.1)
[2016-10-31] MEDS: ASPIRIN EC 81 MG TABEC PO SCH (07:44)
[2016-10-31] MEDS: VITAMIN B COMPLEX/VIT C TAB PO SCH (07:44)
[2016-10-31] MEDS: metFORMIN HCL 500 MG TAB PO SCH (07:44)
[2016-10-31] MEDS: buPROPion HCL 150 MG EXTENDED RELEASE TAB PO SCH (07:44)
[2016-10-31] MEDS: PRAVASTATIN SOD 40 MG TAB PO SCH (07:44)
[2016-10-31] MEDS: CHOLECALCIFEROL (VIT D3) 5000 UNIT CAP PO SCH ×2 (07:44→21:03)
[2016-10-31] MEDS: HYDROXYCHLOROQUINE SULFATE 200 MG TAB PO SCH ×2 (07:44→21:03)
[2016-10-31] MEDS: CILOSTAZOL 100 MG TAB PO SCH ×2 (07:45→21:00)
[2016-10-31] MEDS: MULTIVITAMIN TAB PO SCH (07:45)
--- NOTE | 2016-10-31 10:34 | PD.VS.PN ---
Subjective Subjective/Hospital Course Pt awake this am in NAD Improved L groin pain/swelling/redness/drainage Objective Vitals/I&O Date Time Temp Pulse Resp B/P Pulse Ox O2 Delivery O2 Flow Rate FiO2 10/31/16 10:00 88 10/31/16 09:00 86 10/31/16 08:00 90 10/31/16 07:00 98.2 78 17 118/55 98 10/31/16 07:00 54 10/31/16 07:00 98 Room Air 10/31/16 06:00 78 10/31/16 05:00 74 10/31/16 04:00 78 10/31/16 04:00 Room Air 10/31/16 04:00 97.9 78 20 128/78 99 10/31/16 03:00 84 10/31/16 02:00 72 10/31/16 01:17 20 10/31/16 01:00 84 10/31/16 00:00 98.4 88 18 118/66 99 10/31/16 00:00 79 10/31/16 00:00 Room Air 10/30/16 23:00 84 10/30/16 22:00 80 10/30/16 21:00 76 10/30/16 20:00 Room Air 10/30/16 20:00 81 10/30/16 20:00 97.7 88 18 143/73 98 10/30/16 19:00 82 10/30/16 18:01 84 10/30/16 17:00 112 10/30/16 15:00 98 10/30/16 15:00 97.8 101 18 132/69 97 10/30/16 14:18 92 10/30/16 13:29 84 10/30/16 12:00 90 10/30/16 11:00 98.0 92 18 133/71 95 10/30/16 11:00 92 10/31/16 10/31/16 10/31/16 07:00 15:00 23:00 Intake Total 950 ml Balance 950 ml Physical Exam GENERAL: A&OX3, NAD, Pleasant 61/F SKIN: Warm and dry. Pt with improved Redness/Swelling/Pain , Pt with mild serosanguineous drainage and NO odor present, Dehisced area noted distal aspect left groin incision, LLE incisions intact and healing NECK: Supple, No JVD CARDIOVASCULAR: +S1,S2, RRR w/o M/G/R RESPIRATORY: BS CTA bilat GASTROINTESTINAL: Abdomen soft, non-tender, nondistended. MUSCULOSKELETAL: No cyanosis, or edema. + TS to Bilat DP/PT heard via doppler BLE warm with motor intact Cap refill < 3sec Laboratory Laboratory Tests Test 10/30/16 10/31/16 20:52 05:10 Vancomycin Level Trough 19.8 White Blood Count 10.4 Red Blood Count 3.66 Hemoglobin 11.6 Hematocrit 34.4 Mean Corpuscular Volume 94.0 Mean Corpuscular Hemoglobin 31.8 Mean Corpuscular Hemoglobin 33.8 Concent Red Cell Distribution Width 13.3 Platelet Count 298 Mean Platelet Volume 8.5 Sodium Level 144 Potassium Level 3.6 Chloride Level 110 Carbon Dioxide Level 27.4 Anion Gap 7 Blood Urea Nitrogen 16 Creatinine 0.81 Estimat Glomerular Filtration 72 Rate Random Glucose 86 Calcium Level 8.6 Assessment and Plan Assessment: (1) Left leg pain Status: Acute Plan Plan Continue wound care regimen Continue IV antibiotics OOB ad juhi Oumou CORDERO [facility]/[employer] [phone] Oumou Self Oct 31, 2016 10:34
[2016-11-01] VITALS (9 sets, daily range): BP systolic 125–126; BP diastolic 77–78; PULSE 62–81; RESP 16–18; TEMP 97.8–98.4; O2SAT 98–99
[2016-11-01] MEDS: PIPERACIL-TAZO 3.375 GM PREMIX 50 ML IV SCH ×2 (00:32→05:49)
[2016-11-01] MEDS: VANCOMYCIN 1,000 MG/NS 250 ML IV SCH ×2 (05:49)
[2016-11-01] MEDS: BACLOFEN 20 MG TAB PO SCH (05:49)
[2016-11-01] MEDS: LEVOTHYROXINE SODIUM 150 MCG TAB PO SCH (05:49)
[2016-11-01] MEDS: VITAMIN B COMPLEX/VIT C TAB PO SCH (08:51)
[2016-11-01] MEDS: MULTIVITAMIN TAB PO SCH (08:51)
[2016-11-01] MEDS: buPROPion HCL 150 MG EXTENDED RELEASE TAB PO SCH (08:51)
[2016-11-01] MEDS: PRAVASTATIN SOD 40 MG TAB PO SCH (08:51)
[2016-11-01] MEDS: HYDROXYCHLOROQUINE SULFATE 200 MG TAB PO SCH (08:51)
[2016-11-01] MEDS: CHOLECALCIFEROL (VIT D3) 5000 UNIT CAP PO SCH (08:51)
[2016-11-01] MEDS: metFORMIN HCL 500 MG TAB PO SCH (08:51)
[2016-11-01] MEDS: ASPIRIN EC 81 MG TABEC PO SCH (08:51)
[2016-11-01] MEDS: CILOSTAZOL 100 MG TAB PO SCH (08:52)
[2016-11-01] MEDS ORDERED: BACT800T5 PO (09:35)
[2016-11-01] MEDS ORDERED: AMBI5TAB PO (09:35)
--- NOTE | 2016-11-01 09:54 | PD.VS.DC ---
Discharge Summary Admission Date: Oct 28, 2016 at 13:43 Discharge Date: Nov 01, 2016 (0938) Admission Diagnosis: (1) Left leg pain Discharge Diagnosis: (1) Left leg pain Status: Acute Brief History from admission Pt is a 61/F that was admitted with L groin wound Procedure(s): none Significant Findings GENERAL: A&OX3, NAD,GCS15 SKIN: Warm and dry. Pt with NO Redness/Swelling/Pain , Pt with mild serosanguineous drainage and NO odor present, Dehisced area noted distal aspect left groin incision, LLE incisions intact and healing CARDIOVASCULAR: +S1,S2 RR w/o M/G/R RESPIRATORY: BS CTA Bilat + DP/PT strong triphasic signals Laboratory Tests Test 10/30/16 10/31/16 20:52 05:10 Vancomycin Level Trough 19.8 MCG/ML (5.0-10.0) Red Blood Count 3.66 MIL/MM3 (4.00-5.30) Hematocrit 34.4 % (35.0-46.0) Chloride Level 110 MEQ/L (98-107) Estimat Glomerular Filtration 72 ML/MIN (>89) Rate Hospital Course: Admitted with L groin wound/ CT showed induration but no drainable abscess Overnight, pt with less groin discomfort and no F/C CTA showed patent bypass without stenoses Pt with improved symptoms throughout the course of stay Pt doing well and cleared for d/c Pt will f/u in 1 week on our OPC Allergies Coded Allergies Type Severity Reaction Last Updated Verified Benzocaine Allergy Severe SHORTNESS OF BREATH - "CHANDU" 09/06/16 Yes Codeine Allergy Severe ITCHY 09/06/16 Yes Iodinated Contrast Media Allergy Severe SOB 09/06/16 Yes Iodine Allergy Severe SOB 09/06/16 Yes Lidocaine Allergy Severe Shortness of Breath 09/06/16 Yes Lisinopril Allergy Severe causes liver failure 09/06/16 Yes Lortab Allergy Severe ITCH 09/06/16 Yes Lovastatin Allergy Severe LIVER FAILURE 09/06/16 Yes Morphine Allergy Severe ITCHY 09/06/16 Yes Novocain Allergy Severe Anaphylaxis 09/06/16 Yes Tricor Allergy Severe Cough 09/06/16 Yes Tylenol #3 Allergy Severe Itching 09/06/16 Yes 10/30/////// 06:00 18:00 06:00 18:00 06:00 18:00 Intake Total 360 ml 1000 ml 2390 ml 360 ml Output Total 900 ml 1400 ml Balance 360 ml 100 ml 990 ml 360 ml Intake Oral 360 ml 1000 ml 2040 ml 360 ml IV Total 350 ml 0 ml Output Urine Total 900 ml 1400 ml # Voids 2 2 3 # Bowel Movements 2 Laboratory Tests Test 10/30/16 10/31/16 20:52 05:10 Vancomycin Level Trough 19.8 MCG/ML White Blood Count 10.4 TH/MM3 Red Blood Count 3.66 MIL/MM3 Hemoglobin 11.6 GM/DL Hematocrit 34.4 % Mean Corpuscular Volume 94.0 FL Mean Corpuscular Hemoglobin 31.8 PG Mean Corpuscular Hemoglobin 33.8 % Concent Red Cell Distribution Width 13.3 % Platelet Count 298 TH/MM3 Mean Platelet Volume 8.5 FL Sodium Level 144 MEQ/L Potassium Level 3.6 MEQ/L Chloride Level 110 MEQ/L Carbon Dioxide Level 27.4 MEQ/L Anion Gap 7 MEQ/L Blood Urea Nitrogen 16 MG/DL Creatinine 0.81 MG/DL Estimat Glomerular Filtration 72 ML/MIN Rate Random Glucose 86 MG/DL Calcium Level 8.6 MG/DL Procedure Category Date Status Time Diet Regular Basic DIET 10/29/16 Transmitted Dinner Basic Metabolic Panel LAB 10/31/16 Complete (Bmp) 06:00 Cbc No Diff, Includes LAB 10/31/16 Complete Plts 06:00 Zolpidem (Ambien) MED 10/30/16 In Process 21:00 Activity Oob With CANDY 10/30/16 In Process Assistance 11:51 Consult Pt Eval & Tx PT 10/30/16 Logged OOB 11:51 Attending Discharge DISCHARGE 11/01/16 Transmitted Order Vital Signs Date Time Temp Pulse Resp B/P Pulse Ox O2 Delivery O2 Flow Rate FiO2 11/01/16 08:00 97.8 65 18 125/77 99 11/01/16 06:00 70 11/01/16 05:00 66 11/01/16 04:00 98.4 70 16 98 11/01/16 02:00 77 11/01/16 01:00 81 11/01/16 00:00 98.4 70 16 126/78 98 11/01/16 00:00 70 10/31/16 20:00 83 10/31/16 20:00 98.5 83 20 135/84 100 10/31/16 19:00 100 Room Air 10/31/16 18:00 82 10/31/16 17:00 78 10/31/16 16:00 79 10/31/16 15:00 98.4 88 20 143/81 98 10/31/16 15:00 87 10/31/16 14:00 81 10/31/16 13:00 81 10/31/16 12:00 82 10/31/16 11:00 109 10/31/16 11:00 97.7 87 20 143/78 100 10/31/16 10:00 88 10/31/16 09:00 86 10/31/16 08:00 90 10/31/16 07:00 98.2 78 17 118/55 98 10/31/16 07:00 54 10/31/16 07:00 98 Room Air 10/31/16 06:00 78 10/31/16 05:00 74 10/31/16 04:00 78 10/31/16 04:00 Room Air 10/31/16 04:00 97.9 78 20 128/78 99 10/31/16 03:00 84 10/31/16 02:00 72 10/31/16 01:17 20 10/31/16 01:00 84 10/31/16 00:00 98.4 88 18 118/66 99 10/31/16 00:00 79 10/31/16 00:00 Room Air 10/30/16 23:00 84 10/30/16 22:00 80 10/30/16 21:00 76 10/30/16 20:00 Room Air 10/30/16 20:00 81 10/30/16 20:00 97.7 88 18 143/73 98 10/30/16 19:00 82 10/30/16 18:01 84 10/30/16 17:00 112 10/30/16 15:00 98 10/30/16 15:00 97.8 101 18 132/69 97 10/30/16 14:18 92 10/30/16 13:29 84 10/30/16 12:00 90 10/30/16 11:00 98.0 92 18 133/71 95 10/30/16 11:00 92 10/30/16 10:02 96 10/30/16 09:32 89 10/30/16 08:15 76 10/30/16 08:15 97.5 83 18 125/84 99 10/30/16 06:00 76 10/30/16 05:00 72 10/30/16 04:00 98.0 76 16 139/76 98 10/30/16 04:00 70 10/30/16 03:00 76 10/30/16 02:00 74 10/30/16 01:00 74 10/30/16 00:00 98.9 79 16 137/91 98 10/30/16 00:00 77 10/29/16 23:00 82 10/29/16 22:00 92 10/29/16 21:00 88 10/29/16 20:00 98.0 82 18 158/72 97 10/29/16 20:00 84 10/29/16 19:00 88 10/29/16 16:00 102 10/29/16 16:00 103 10/29/16 16:00 98.5 106 18 161/74 97 10/29/16 15:00 96 10/29/16 14:00 86 10/29/16 13:00 82 10/29/16 12:00 97.5 83 18 144/88 98 10/29/16 12:00 76 10/29/16 11:00 76 10/29/16 10:00 88 Discharge Condition: Good Discharge Disposition: Discharge Home Discharge Instructions: Continue daily dressing changes Follow up in 1W in our OPC 11/08/16 at 2:15 Call the office to report any new onset fever, chills, redness, swelling or drainage Oumou CORDERO [facility]/[employer] [phone] Any questions or concerns: Call [facility] Heart and Vascular Surgery at [facility] [phone] Oumou Self Nov 01, 2016 09:54
--- NOTE | 2016-11-01 10:04 | PD.VS.PN ---
Subjective Subjective/Hospital Course Pt awake this am in NAD No R/S/P to Left groin incision Pt w/o complaints Objective Vitals/I&O Date Time Temp Pulse Resp B/P Pulse Ox O2 Delivery O2 Flow Rate FiO2 11/01/16 08:00 97.8 65 18 125/77 99 11/01/16 07:45 99 Room Air 11/01/16 06:00 70 11/01/16 05:00 66 11/01/16 04:00 98.4 70 16 98 11/01/16 02:00 77 11/01/16 01:00 81 11/01/16 00:00 98.4 70 16 126/78 98 11/01/16 00:00 70 10/31/16 20:00 83 10/31/16 20:00 98.5 83 20 135/84 100 10/31/16 19:00 100 Room Air 10/31/16 18:00 82 10/31/16 17:00 78 10/31/16 16:00 79 10/31/16 15:00 98.4 88 20 143/81 98 10/31/16 15:00 87 10/31/16 14:00 81 10/31/16 13:00 81 10/31/16 12:00 82 10/31/16 11:00 109 10/31/16 11:00 97.7 87 20 143/78 100 Physical Exam L groin w/o redness, swelling or pain Scant amount of serosanguineous drainage noted BS CTA +S1,S2 RRR w/o M/G/R + DT/PT heard via Doppler bialt LE BLE warm with motor intact Laboratory Allergies Coded Allergies Type Severity Reaction Last Updated Verified Benzocaine Allergy Severe SHORTNESS OF BREATH - "CHANDU" 09/06/16 Yes Codeine Allergy Severe ITCHY 09/06/16 Yes Iodinated Contrast Media Allergy Severe SOB 09/06/16 Yes Iodine Allergy Severe SOB 09/06/16 Yes Lidocaine Allergy Severe Shortness of Breath 09/06/16 Yes Lisinopril Allergy Severe causes liver failure 09/06/16 Yes Lortab Allergy Severe ITCH 09/06/16 Yes Lovastatin Allergy Severe LIVER FAILURE 09/06/16 Yes Morphine Allergy Severe ITCHY 09/06/16 Yes Novocain Allergy Severe Anaphylaxis 09/06/16 Yes Tricor Allergy Severe Cough 09/06/16 Yes Tylenol #3 Allergy Severe Itching 09/06/16 Yes 10/30///////// 06:00 18:00 06:00 18:00 06:00 18:00 Intake Total 360 ml 1000 ml 2390 ml 360 ml Output Total 900 ml 1400 ml Balance 360 ml 100 ml 990 ml 360 ml Intake Oral 360 ml 1000 ml 2040 ml 360 ml IV Total 350 ml 0 ml Output Urine Total 900 ml 1400 ml # Voids 2 2 3 # Bowel Movements 2 Laboratory Tests Test 10/30/16 10/31/16 20:52 05:10 Vancomycin Level Trough 19.8 MCG/ML White Blood Count 10.4 TH/MM3 Red Blood Count 3.66 MIL/MM3 Hemoglobin 11.6 GM/DL Hematocrit 34.4 % Mean Corpuscular Volume 94.0 FL Mean Corpuscular Hemoglobin 31.8 PG Mean Corpuscular Hemoglobin 33.8 % Concent Red Cell Distribution Width 13.3 % Platelet Count 298 TH/MM3 Mean Platelet Volume 8.5 FL Sodium Level 144 MEQ/L Potassium Level 3.6 MEQ/L Chloride Level 110 MEQ/L Carbon Dioxide Level 27.4 MEQ/L Anion Gap 7 MEQ/L Blood Urea Nitrogen 16 MG/DL Creatinine 0.81 MG/DL Estimat Glomerular Filtration 72 ML/MIN Rate Random Glucose 86 MG/DL Calcium Level 8.6 MG/DL Procedure Category Date Status Time Diet Regular Basic DIET 10/29/16 Transmitted Dinner Basic Metabolic Panel LAB 10/31/16 Complete (Bmp) 06:00 Cbc No Diff, Includes LAB 10/31/16 Complete Plts 06:00 Zolpidem (Ambien) MED 10/30/16 In Process 21:00 Activity Oob With CANDY 10/30/16 In Process Assistance 11:51 Consult Pt Eval & Tx PT 10/30/16 Logged OOB 11:51 Attending Discharge DISCHARGE 11/01/16 Transmitted Order Vital Signs Date Time Temp Pulse Resp B/P Pulse Ox O2 Delivery O2 Flow Rate FiO2 11/01/16 08:00 97.8 65 18 125/77 99 11/01/16 07:45 99 Room Air 11/01/16 06:00 70 11/01/16 05:00 66 11/01/16 04:00 98.4 70 16 98 11/01/16 02:00 77 11/01/16 01:00 81 11/01/16 00:00 98.4 70 16 126/78 98 11/01/16 00:00 70 10/31/16 20:00 83 10/31/16 20:00 98.5 83 20 135/84 100 10/31/16 19:00 100 Room Air 10/31/16 18:00 82 10/31/16 17:00 78 10/31/16 16:00 79 10/31/16 15:00 98.4 88 20 143/81 98 10/31/16 15:00 87 10/31/16 14:00 81 10/31/16 13:00 81 10/31/16 12:00 82 10/31/16 11:00 109 10/31/16 11:00 97.7 87 20 143/78 100 10/31/16 10:00 88 10/31/16 09:00 86 10/31/16 08:00 90 10/31/16 07:00 98.2 78 17 118/55 98 10/31/16 07:00 54 10/31/16 07:00 98 Room Air 10/31/16 06:00 78 10/31/16 05:00 74 10/31/16 04:00 78 10/31/16 04:00 Room Air 10/31/16 04:00 97.9 78 20 128/78 99 10/31/16 03:00 84 10/31/16 02:00 72 10/31/16 01:17 20 10/31/16 01:00 84 10/31/16 00:00 98.4 88 18 118/66 99 10/31/16 00:00 79 10/31/16 00:00 Room Air 10/30/16 23:00 84 10/30/16 22:00 80 10/30/16 21:00 76 10/30/16 20:00 Room Air 10/30/16 20:00 81 10/30/16 20:00 97.7 88 18 143/73 98 10/30/16 19:00 82 10/30/16 18:01 84 10/30/16 17:00 112 10/30/16 15:00 98 10/30/16 15:00 97.8 101 18 132/69 97 10/30/16 14:18 92 10/30/16 13:29 84 10/30/16 12:00 90 10/30/16 11:00 98.0 92 18 133/71 95 10/30/16 11:00 92 10/30/16 10:02 96 10/30/16 09:32 89 10/30/16 08:15 76 10/30/16 08:15 97.5 83 18 125/84 99 10/30/16 06:00 76 10/30/16 05:00 72 10/30/16 04:00 98.0 76 16 139/76 98 10/30/16 04:00 70 10/30/16 03:00 76 10/30/16 02:00 74 10/30/16 01:00 74 10/30/16 00:00 98.9 79 16 137/91 98 10/30/16 00:00 77 10/29/16 23:00 82 10/29/16 22:00 92 10/29/16 21:00 88 10/29/16 20:00 98.0 82 18 158/72 97 10/29/16 20:00 84 10/29/16 19:00 88 10/29/16 16:00 102 10/29/16 16:00 103 10/29/16 16:00 98.5 106 18 161/74 97 10/29/16 15:00 96 10/29/16 14:00 86 10/29/16 13:00 82 10/29/16 12:00 97.5 83 18 144/88 98 10/29/16 12:00 76 10/29/16 11:00 76 Assessment and Plan Assessment: (1) Left leg pain Status: Acute Plan Plan Pt D/c'd this am Will see pt in our OPC in 1W for f/u Continue wound care regimen Oumou CORDERO [facility]/[employer] [phone] Discharge Planning Today Oumou Self Nov 01, 2016 10:04
== END 2016-11-01 11:05 | disposition home or self-care (01) | DRG 603 ==
LOC: HCIS 13:43
PROVIDERS: ADMIT Surgery; ATTEND Surgery
DX: L02.214 Cutaneous abscess of groin (principal); I50.9 Heart failure, unspecified; J44.9 Chronic obstructive pulmonary disease, unspecified; Z86.73 Personal history of transient ischemic attack (TIA), and cerebral infarction without residual deficits; Z95.5 Presence of coronary angioplasty implant and graft; K57.90 Diverticulosis of intestine, part unspecified, without perforation or abscess without bleeding; I77.1 Stricture of artery
CPT/HCPCS: 75635; 80048; 80202; 85027; 86850; 86900; 86901; 86920; 90732; J1170; J2270; J2543; J3370; J7050; J7512; Q0163; Q9967

== ENCOUNTER 2016-11-10 16:46 | Emergency (ER) | payer MEDICARE, MEDICAID ==
[~2016-11-10] VITALS: Ht 170.2 cm; Wt 73.5 kg
[~2016-11-10 16:46] MED LIST changes: +AMBI5TAB PO; +BACL20TA PO; +BACT800T5 PO; -FOLI400T PO; -HYDR12.57 PO; -KELP150T PO; -ZINC100T PO
[2016-11-10 16:52] VITALS: BP 121/82; PULSE 105; RESP 17; TEMP 97.9; O2SAT 96
[2016-11-10 17:08] LABS: BLOOD, URINE LARGE (NEG); GLUCOSE,URINE 100 mg/dL (NEG); KETONE, URINE TRACE mg/dL (NEG)
[2016-11-10 17:18] LABS: NITRITE,URINE POS (NEG)
[2016-11-10 17:19] LABS: METHOD OF COLLECTION CLEAN CATCH; URINE COLOR ORANGE (YELLW/STRAW)
[2016-11-10 17:20] LABS: WBC, URINE 100-200 /hpf (0-5)
[2016-11-10 17:21] LABS: COMMENT (UR) CULTURE INDICATED; CULTURE IF INDICATED CULTURE INDICATED; RBC, URINE INNUM /hpf (0-3); SQUAMOUS EPITHELIAL CELL URINE > 8 /hpf (0-5)
[2016-11-10] MEDS ORDERED: LEVOFLOXACIN 500 MG TAB PO ONE (17:45)
[2016-11-10] MEDS ORDERED: PHEN0.4T PO (17:45)
[2016-11-10] MEDS ORDERED: LEVA500T PO (17:45)
--- NOTE | 2016-11-10 17:45 | PD ---
HPI Chief Complaint: Complaint Time Seen by Provider: 17:38 Travel History International Travel<30 days: No Contact w/Intl Traveler<30days: No Traveled to known affect area: No History of Present Illness HPI 61-year-old female complains of dysuria and frequency for about 1 day. She finished a 2 week course of Bactrim due to a cellulitis following surgery 2 days ago. She's had no fever. No abnormal vaginal bleeding or discharge. Cellulitis has resolved. She states for quinolones don't work for her UTIs and that only Macrobid works. Location . Severity moderate. PFSH Past Medical History Hx Anticoagulant Therapy: Yes (PLAVIX) Arthritis: Yes Asthma: Yes Atrial Fibrillation: Yes Autoimmune Disease: Yes (LUPUS) Blood Disorders: No Anxiety: Yes Depression: Yes Heart Rhythm Problems: Yes Cancer: Yes (SKIN) Cardiac Catheterization: Yes Cardiovascular Problems: Yes (CAD, UT X 4, THREE CARDIAC STENTS; L fem bypass graft) High Cholesterol: Yes Chemotherapy: No Chest Pain: No Congestive Heart Failure: Yes COPD: Yes Cerebrovascular Accident: Yes (x 4 - 2007, 2008) Coronary Artery Disease: Yes Diabetes: No Patient Takes Glucophage: Yes Diminished Hearing: No Endocrine: Yes GERD: Yes Glaucoma: No Genitourinary: No Headaches: Yes Hepatitis: No Hiatal Hernia: Yes Heparin Induced Thrombocytopen: No Hypertension: Yes Immune Disorder: Yes (LUPUS FIBROMYALGIA) Implanted Vascular Access Dvce: Yes Musculoskeletal: Yes Neurologic: Yes Psychiatric: Yes (ADD) Reproductive: No Respiratory: No (ASTHMA, 02/28/07 STOPPED SMOKING) Integumentary: No Migraines: Yes Myocardial Infarction: Yes (X 3) Radiation Therapy: No Seizures: No Sleep Apnea: No Thyroid Disease: Yes (HYPOTHYROID) Triglycerides - High: Yes Ulcer: Yes ?: Not Menopausal: Yes : 5 Para: 2 Miscarriage: 3 : 0 Past Surgical History Abdominal Surgery: Yes (lap marnie liver bx) Appendectomy: Yes Body Medical Devices: X3 CARDIAC STENTS AND MIGUEL LOWER EXT. STENTS Cardiac Surgery: Yes (x3 cardiac stents) Cholecystectomy: Yes Coronary Artery Bypass Graft: No Coronary Stent: Yes (X7) Ear Surgery: No Endocrine Surgery: No Eye Surgery: Yes (MIGUEL. UPPER BLEPHAROPLASTY) Genitourinary Surgery: Yes Gynecologic Surgery: Yes (hysterectomy) Hysterectomy: Yes Neurologic Surgery: Yes (lower back L4-5, S1 X 3) Oral Surgery: Yes (tonsillectomy) Pacemaker: No Thoracic Surgery: No Tonsillectomy: Yes Other Surgery: Yes (LEFT LEG BYPASS) Family History Family Myocardial Infarction: Yes Social History Alcohol Use: Yes (rarely) Tobacco Use: No Substance Use: No Allergies-Medications (Allergen,Severity, Reaction): Coded Allergies: Benzocaine (Verified Allergy, Severe, SHORTNESS OF BREATH - "CHANDU", ) Codeine (Verified Allergy, Severe, ITCHY, 11/10/16) Iodinated Contrast Media (Verified Allergy, Severe, SOB, 11/10/16) Iodine (Verified Allergy, Severe, SOB, 11/10/16) IV pt states anaphylaxis Lidocaine (Verified Allergy, Severe, Shortness of Breath, 11/10/16) Lisinopril (Verified Allergy, Severe, causes liver failure, 11/10/16) Lortab (Verified Allergy, Severe, ITCH, 11/10/16) pt states oral injectable type causes anaphylaxis Lovastatin (Verified Allergy, Severe, LIVER FAILURE, 11/10/16) Morphine (Verified Allergy, Severe, ITCHY, 11/10/16) Novocain (Verified Allergy, Severe, Anaphylaxis, 11/10/16) Tricor (Verified Allergy, Severe, Cough, 11/10/16) Tylenol #3 (Verified Allergy, Severe, Itching, 11/10/16) Reported Meds & Prescriptions Reported Meds & Active Scripts Active Macrobid (Nitrofurantoin Monoh/Nitrofur Macro) 100 Mg Cap 100 Mg PO BID 5 Days Pyridium (Phenazopyridine HCl) 100 Mg Tab 100 Mg PO Q8HR Ambien (Zolpidem Tartrate) 5 Mg Tab 5 Mg PO HS PRN Reported Baclofen 20 Mg Tab 20 Mg PO TID Cilostazol 100 Mg Tab 100 Mg PO BID Aspirin 81 Mg Tabdr 81 Mg PO DAILY Vitamin D3 (Cholecalciferol) 5,000 Unit Tab 5,000 Units PO DAILY Biotin 7,500 Mcg Tab 10,000 Mcg PO DAILY Vitamin B Complex (B-Complex Vitamins) 1 Tab 1,000 Mcg PO DAILY Evening [place] Oil 1,000 Mg Cap 1,300 Mg PO DAILY Lecithin (Soybean Lecithin (Bulk)) 1 Gra Gra 1,200 Mg PO DAILY Topamax (Topiramate) 100 Mg Tab 100 Mg PO BID PRN Wellbutrin Xl 24 HR (Bupropion HCl) 150 Mg Tab 450 Mg PO DAILY Plaquenil (Hydroxychloroquine Sulfate) 200 Mg Tab 200 Mg PO BID Take with food Krill Oil [place]-3 300 mg (Krill Oil) 1 Cap Cap 300 Mg PO DAILY Levothyroxine (Levothyroxine Sodium) 150 Mcg Tab 150 Mcg PO DAILY Simvastatin 20 Mg Tab 20 Mg PO DAILY Valacyclovir (Valacyclovir HCl) 1 Gm Tab 1,000 Mg PO DAILY Multi For Her (Multiple Vitamins W/ Minerals) 1 Cap Cap 1 Tab PO DAILY Metformin (Metformin HCl) 500 Mg Tab 500 Mg PO DAILY With a meal Coq-10 (Coenzyme Q10 (Ubidecarenone)) 100 Mg Cap 100 Mg PO DAILY Review of Systems General / Constitutional: No: Fever Genitourinary: Positive: Urgency, Frequency, Dysuria Physical Exam Narrative GENERAL: 61 yo F, WNWD, NAD SKIN: Warm and dry. HEAD: Normocephalic. EYES: No scleral icterus. No injection or drainage. NECK: Supple, trachea midline. No JVD or lymphadenopathy. GASTROINTESTINAL: TTP suprabpubic abdomen. No TTP at McBurney's point. Negative Nuñez's sign. No CVA tenderness. MUSCULOSKELETAL: No cyanosis, or edema. BACK: Nontender without obvious deformity. No CVA tenderness. Data Data Last Documented VS Vital Signs Date Time Temp Pulse Resp B/P Pulse Ox O2 Delivery O2 Flow Rate FiO2 11/10/16 16:52 97.9 105 17 121/82 96 VS reviewed Orders Urinalysis - C+S If Indicated (11/10/16 16:59) Urine Culture (11/10/16 17:00) Levofloxacin (Levaquin) (11/10/16 17:45) Phenazopyridine (Pyridium) (11/10/16 18:15) Nitrofurantoin Monohyd Macrocr (Macrobid (11/10/16 18:15) Ceftriaxone Inj (Rocephin Inj) (11/10/16 18:15) Labs Laboratory Tests Test 11/10/16 17:00 Urine Collection Type CLEAN CATCH Urine Color ORANGE Urine Turbidity MOD Urine pH 5.0 Urine Specific [place] 1.030 Urine Protein 100 mg/dL Urine Glucose (UA) 100 mg/dL Urine Ketones TRACE mg/dL Urine Occult Blood LARGE Urine Nitrite POS Urine Bilirubin NEG Urine Leukocyte Esterase MOD Urine RBC INNUM /hpf Urine WBC 100-200 /hpf Urine Squamous Epithelial > 8 /hpf Cells Urine Yeast (Budding) MANY Microscopic Urinalysis Comment CULTURE INDICATED Urine Collection Time 17l:00 [facility] Medical Decision Making Medical Screen Exam Complete: Yes Emergency Medical Condition: Yes Differential Diagnosis Pyelonephritis, uncomplicated cystitis, hematuria Narrative Course UA: UTI present Macrobid prescribed. IM Rocephin here. Pyridium script. Return precautions discussed. Diagnosis Primary Impression: UTI (urinary tract infection) Qualified Code: N30.01 - Acute cystitis with hematuria Referrals: Primary Care Physician 2 days Additional Instructions: You have a choice when it comes to health care, and we are glad that you chose [facility]. Hopefully, we have met your expectations on today's visit. You are welcome to return to [facility] at any time, as we are committed to meeting the health care needs of our community. Med/Other Pt SpecificInfo: Prescription(s) given Scripts Nitrofurantoin Monohydrate Macrocrystals (Macrobid)100 Mg [id number] Mg PO BID 5 Days Ref 0 Prov:Lukas Mc MD 11/10/16 Phenazopyridine (Pyridium)100 Mg [id number] Mg PO Q8HR #6 TAB Ref 0 Prov:Lukas Mc MD 11/10/16 Disposition: 01 DISCHARGE HOME Condition: Stable Lukas Mc MD November 10, 2016 17:45
[2016-11-10] MEDS ORDERED: NITROFURANTOIN MONOHYD MACROCR 100 MG CAP PO ONE (18:15)
[2016-11-10] MEDS ORDERED: PHENAZOPYRIDINE HCL 200 MG TAB PO ONE (18:15)
[2016-11-10] MEDS ORDERED: MACR100C2 PO (18:28)
== END 2016-11-10 18:41 | disposition home or self-care (01) ==
LOC: PHED 16:46 → PHEFT 18:41
DX: N39.0 Urinary tract infection, site not specified (principal); B96.20 Unspecified Escherichia coli [E. coli] as the cause of diseases classified elsewhere; J45.909 Unspecified asthma, uncomplicated; I48.91 Unspecified atrial fibrillation; M32.9 Systemic lupus erythematosus, unspecified; I25.2 Old myocardial infarction; I25.10 Atherosclerotic heart disease of native coronary artery without angina pectoris; E78.00 Pure hypercholesterolemia, unspecified; I50.9 Heart failure, unspecified; J44.9 Chronic obstructive pulmonary disease, unspecified; I10 Essential (primary) hypertension; M79.7 Fibromyalgia; E03.9 Hypothyroidism, unspecified; K21.9 Gastro-esophageal reflux disease without esophagitis; Z79.02 Long term (current) use of antithrombotics/antiplatelets; Z86.73 Personal history of transient ischemic attack (TIA), and cerebral infarction without residual deficits; Z87.891 Personal history of nicotine dependence; Z95.5 Presence of coronary angioplasty implant and graft
CPT/HCPCS: 81001; 87077; 87086; 87186; 96372; 99283; J0696

== ENCOUNTER 2017-03-26 21:37 | Observation (INO) | payer MEDICARE, OTHER ==
[~2017-03-26] VITALS: Ht 170.2 cm; Wt 81.2 kg
[~2017-03-26 21:37] MED LIST changes: -BACT800T5 PO; +MACR100C2 PO; +PHEN0.4T PO; -WALKER WHEELS/F1 MIS
[2017-03-26 22:05] VITALS: BP 146/73; PULSE 98; RESP 18; O2SAT 96
[2017-03-26 22:28] VITALS: BP 150/70; PULSE 106; RESP 16; TEMP 99.6; O2SAT 99
--- NOTE | 2017-03-26 22:31 | PD ---
HPI Chief Complaint: Skin Problem Time Seen by Provider: 22:27 Travel History International Travel<30 days: No Contact w/Intl Traveler<30days: No Traveled to known affect area: No History of Present Illness HPI The patient is a 62-year-old female that complains of a painful, burning rash that started on the bridge of her nose 2 days ago and has spread over the forehead and down to the cheeks bilaterally anteriorly. The rash is not pruritic. It is very tender. The patient has had chills at home and thinks she may have had a fever. She has never had anything like this before. She saw Dr. Avila yesterday but the rash was not nearly as bad when he saw it. She denies any significant sun exposure. She has not used any tanning booths. The patient denies putting on any chemicals including sunburn lotion or any other lotion on her face in the last week. PFSH Past Medical History Hx Anticoagulant Therapy: Yes (PLAVIX) Arthritis: Yes Asthma: Yes Atrial Fibrillation: Yes Autoimmune Disease: Yes (LUPUS) Blood Disorders: No Anxiety: Yes Depression: Yes Heart Rhythm Problems: Yes Cancer: Yes (SKIN) Cardiac Catheterization: Yes Cardiovascular Problems: Yes (CAD, CO X 4, THREE CARDIAC STENTS; L fem bypass graft) High Cholesterol: Yes Chemotherapy: No Chest Pain: No Congestive Heart Failure: Yes COPD: Yes Cerebrovascular Accident: Yes (x 4 - 2006, 2008) Coronary Artery Disease: Yes Diabetes: No Diminished Hearing: No Endocrine: Yes GERD: Yes Glaucoma: No Genitourinary: No Headaches: Yes Hepatitis: No Hiatal Hernia: Yes Heparin Induced Thrombocytopen: No Hypertension: Yes Immune Disorder: Yes (LUPUS FIBROMYALGIA) Implanted Vascular Access Dvce: Yes Musculoskeletal: Yes Neurologic: Yes Psychiatric: Yes (ADD) Reproductive: No Respiratory: No (ASTHMA, 02/28/07 STOPPED SMOKING) Integumentary: No Migraines: Yes Myocardial Infarction: Yes (X 3) Radiation Therapy: No Seizures: No Sleep Apnea: No Thyroid Disease: Yes (HYPOTHYROID) Triglycerides - High: Yes Ulcer: Yes Menopausal: Yes : 5 Para: 2 Miscarriage: 3 : 0 Past Surgical History Abdominal Surgery: Yes (lap marnie liver bx) Appendectomy: Yes Body Medical Devices: X3 CARDIAC STENTS AND MIGUEL LOWER EXT. STENTS Cardiac Surgery: Yes (x3 cardiac stents) Cholecystectomy: Yes Coronary Artery Bypass Graft: No Coronary Stent: Yes (X7) Ear Surgery: No Endocrine Surgery: No Eye Surgery: Yes (MIGUEL. UPPER BLEPHAROPLASTY) Genitourinary Surgery: Yes Gynecologic Surgery: Yes (hysterectomy) Hysterectomy: Yes Neurologic Surgery: Yes (lower back L4-5, S1 X 3) Oral Surgery: Yes (tonsillectomy) Pacemaker: No Thoracic Surgery: No Tonsillectomy: Yes Other Surgery: Yes (LEFT LEG BYPASS) Social History Alcohol Use: Yes (rarely) Tobacco Use: No Substance Use: No Allergies-Medications (Allergen,Severity, Reaction): Coded Allergies: Iodinated Contrast- Oral and IV Dye (Unverified Allergy, Severe, SOB, 03/26) acetaminophen (Unverified Allergy, Severe, Itching, 03/26/17) benzocaine (Unverified Allergy, Severe, SHORTNESS OF BREATH - "CHANDU", ) codeine (Unverified Allergy, Severe, Itching, 03/26/17) fenofibrate (Unverified Allergy, Severe, Cough, 03/26/17) hydrocodone (Unverified Allergy, Severe, ITCH, 03/26/17) pt states oral injectable type causes anaphylaxis iodine (Unverified Allergy, Severe, SOB, 03/26/17) IV pt states anaphylaxis lidocaine (Unverified Allergy, Severe, Shortness of Breath, 03/26/17) lisinopril (Unverified Allergy, Severe, causes liver failure, 03/26/17) lovastatin (Unverified Allergy, Severe, LIVER FAILURE, 03/26/17) morphine (Unverified Allergy, Severe, ITCHY, 03/26/17) potassium iodide (Unverified Allergy, Severe, SOB, 03/26/17) IV pt states anaphylaxis povidone-iodine (Unverified Allergy, Severe, SOB, 03/26/17) IV pt states anaphylaxis procaine (Unverified Allergy, Severe, Anaphylaxis, 03/26/17) sodium iodide (Unverified Allergy, Severe, SOB, 03/26/17) IV pt states anaphylaxis sodium iodide (Unverified Allergy, Severe, SOB, 03/26/17) IV pt states anaphylaxis Reported Meds & Prescriptions Reported Meds & Active Scripts Active Reported Valacyclovir (Valacyclovir HCl) 500 Mg Tab 500 Mg PO DAILY Oxycodone-Acetaminophen 5-325 mg Tab 1 Tab PO Q6H Restoril (Temazepam) 15 Mg Cap 15 Mg PO HS PRN Levothyroxine (Levothyroxine Sodium) 137 Mcg Tab 137 Mcg PO DAILY Lecithin (Lecithin, Soy) 1,200 Mg Capsule 1 Cap PO DAILY Thera-M (Multiple Vitamins W/ Minerals) 1 Tab 1 Tab PO DAILT Evening [place] Oil 1,000 Mg Cap 1 Cap PO DAILY Coq-10 Tr (Coenzyme Q10 (Ubidecarenone)) 100 Mg Cap 1 Cap PO DAILY Vitamin D3 (Cholecalciferol) 5,000 Unit Cap 5,000 Units PO DAILY Biotin 10 Mg Tab 10 Mg PO BID Aspirin Low Dose (Aspirin) 81 Mg Chew 81 Mg CHEW DAILY Baclofen 20 Mg Tab 20 Mg PO TID Cilostazol 100 Mg Tab 100 Mg PO BID Vitamin B Complex (B-Complex Vitamins) 1 Tab 1,000 Mcg PO DAILY Topamax (Topiramate) 100 Mg Tab 100 Mg PO BID PRN Wellbutrin Xl 24 HR (Bupropion HCl) 150 Mg Tab 450 Mg PO DAILY Plaquenil (Hydroxychloroquine Sulfate) 200 Mg Tab 200 Mg PO BID Take with food Krill Oil [place]-3 300 mg (Krill Oil) 1 Cap Cap 300 Mg PO DAILY Simvastatin 20 Mg Tab 20 Mg PO DAILY Valacyclovir (Valacyclovir HCl) 1 Gm Tab 1,000 Mg PO DAILY Metformin (Metformin HCl) 500 Mg Tab 500 Mg PO DAILY With a meal Review of Systems Except as stated in HPI: all other systems reviewed are Neg Physical Exam Narrative GENERAL: The patient is alert, oriented 3 in moderate apparent distress with her facial pain. Her vital signs show temperature SKIN: Focused skin assessment warm/dry. There is erythema over both malar areas , forehead and nose. It is poorly demarcated. The rash is slightly warm and tender. HEAD: Atraumatic. Normocephalic. EYES: Pupils equal and round. No scleral icterus. No injection or drainage. ENT: No nasal bleeding or discharge. Mucous membranes pink and moist. NECK: Trachea midline. No JVD. CARDIOVASCULAR: Regular rate and rhythm. No murmur appreciated. RESPIRATORY: No accessory muscle use. Clear to auscultation. Breath sounds equal bilaterally. GASTROINTESTINAL: Abdomen soft, non-tender, nondistended. Hepatic and splenic margins not palpable. MUSCULOSKELETAL: No obvious deformities. No clubbing. No cyanosis. No edema. NEUROLOGICAL: Awake and alert. No obvious cranial nerve deficits. Motor grossly within normal limits. Normal speech. PSYCHIATRIC: Appropriate mood and affect; insight and judgment normal. Data Data Last Documented VS Vital Signs Date Time Temp Pulse Resp B/P (MAP) Pulse Ox O2 Delivery O2 Flow Rate FiO2 03/26/17 23:05 102 18 146/68 (94) 97 Room Air 03/26/17 22:28 99.6 Orders Orders Complete Blood Count With Diff (03/26/17 22:27) Comprehensive Metabolic Panel (03/26/17 22:27) Urinalysis - C+S If Indicated (03/26/17 22:27) Lactic Acid (03/26/17 22:27) Ketorolac Inj (Toradol Inj) (03/26/17 23:15) Vancomycin Inj (Vancomycin Inj) (03/26/17 23:15) Admit Order (Ed Use Only) (03/26/17 23:06) Labs Laboratory Tests Test 03/26/17 22:40 White Blood Count 13.1 TH/MM3 Red Blood Count 4.39 MIL/MM3 Hemoglobin 13.5 GM/DL Hematocrit 39.7 % Mean Corpuscular Volume 90.4 FL Mean Corpuscular Hemoglobin 30.7 PG Mean Corpuscular Hemoglobin Concent 34.0 % Red Cell Distribution Width 14.8 % Platelet Count 246 TH/MM3 Mean Platelet Volume 8.3 FL Neutrophils (%) (Auto) 83.8 % Lymphocytes (%) (Auto) 9.4 % Monocytes (%) (Auto) 5.6 % Eosinophils (%) (Auto) 1.1 % Basophils (%) (Auto) 0.1 % Neutrophils # (Auto) 11.1 TH/MM3 Lymphocytes # (Auto) 1.2 TH/MM3 Monocytes # (Auto) 0.7 TH/MM3 Eosinophils # (Auto) 0.1 TH/MM3 Basophils # (Auto) 0.0 TH/MM3 CBC Comment DIFF FINAL Differential Comment Urine Color YELLOW Urine Turbidity CLEAR Urine pH 5.5 Urine Specific [place] 1.020 Urine Protein NEG mg/dL Urine Glucose (UA) NEG mg/dL Urine Ketones NEG mg/dL Urine Occult Blood NEG Urine Nitrite NEG Urine Bilirubin NEG Urine Leukocyte Esterase NEG Urine RBC 0-2 /hpf Urine WBC 0-2 /hpf Urine Squamous Epithelial Cells 6-8 /hpf Urine Bacteria RARE /hpf Microscopic Urinalysis Comment CULT NOT INDICATED Blood Urea Nitrogen 13 MG/DL Creatinine 0.80 MG/DL Random Glucose 113 MG/DL Total Protein 7.3 GM/DL Albumin 3.6 GM/DL Calcium Level 8.7 MG/DL Alkaline Phosphatase 97 U/L Aspartate Amino Transf (AST/SGOT) 21 U/L Alanine Aminotransferase (ALT/SGPT) 37 U/L Total Bilirubin 0.2 MG/DL Sodium Level 141 MEQ/L Potassium Level 3.9 MEQ/L Chloride Level 105 MEQ/L Carbon Dioxide Level 27.0 MEQ/L Anion Gap 9 MEQ/L Estimat Glomerular Filtration Rate 73 ML/MIN Lactic Acid Level 1.8 mmol/L MDM Medical Decision Making Medical Screen Exam Complete: Yes Emergency Medical Condition: Yes Medical Record Reviewed: Yes Interpretation(s) The CBC shows a white count of 13,100 with 84% neutrophils. The complete metabolic profile shows a GFR of 73 but is otherwise normal. The lactic acid is normal. The urine shows rare urine bacteria but is otherwise normal and culture is not indicated. Differential Diagnosis Facial cellulitis, allergic reaction, contact dermatitis, sunburn, chemical burn , atypical lupus presentation, Narrative Course The patient appears to have a facial cellulitis. The patient's cellulitis progressed rapidly from yesterday to today. She is quite uncomfortable with her pain. Plan: The patient will be admitted to Dr. Aba Locke, I discussed the patient with her. She will get vancomycin. Sepsis Criteria SIRS Criteria (2 or more): Heart rate over 90, WBC > 74445, < 4000 or > 10% bands Criteria Outcome: Meets SIRS criteria Physician Communication Physician Communication I discussed the patient with Dr. Aba Locke, the patient will be admitted to her. Diagnosis Primary Impression: Facial cellulitis Admitting Information Admitting Physician Requests: Admit Blanco Doherty MD Mar 26, 2017 22:31
[2017-03-26 22:50] LABS: BLOOD, URINE NEG (NEG); GLUCOSE,URINE NEG (NEG); KETONE, URINE NEG (NEG); NITRITE,URINE NEG (NEG); PH, URINE 5.5 (5.0-8.5)
[2017-03-26 22:52] LABS: AUTOMATED NEUTROPHIL # 11.1 TH/MM3 (1.8-7.7); BASOPHIL % 0.1 % (0.0-2.0); EOSINOPHIL # 0.1 TH/MM3 (0-0.4); EOSINOPHIL % 1.1 % (0.0-4.0); HEMATOCRIT 39.7 % (35.0-46.0); HEMO FLAGS DIFF FINAL; LYMPH % 9.4 % (9.0-44.0); LYMPHOCYTE # 1.2 TH/MM3 (1.0-4.8); MEAN CELL VOLUME 90.4 FL (80.0-100.0); MEAN CORPUSCULAR HEMOGLOBIN 30.7 PG (27.0-34.0); MONO % 5.6 % (0.0-8.0); NEUT % 83.8 % (16.0-70.0); PLATELET COUNT 246 TH/MM3 (150-450); RED BLOOD COUNT 4.39 MIL/MM3 (4.00-5.30); RED CELL DISTRIBUTION WIDTH 14.8 % (11.6-17.2); WHITE BLOOD COUNT 13.1 TH/MM3 (4.0-11.0)
[2017-03-26 23:00] LABS: BACTERIA, URINE RARE /hpf; COMMENT (UR) CULT NOT INDICATED; CULTURE IF INDICATED CULT NOT INDICATED; RBC, URINE 0-2 /hpf (0-3); URINE COLOR YELLOW (YELLW/STRAW); WBC, URINE 0-2 /hpf (0-5)
[2017-03-26 23:02] LABS: CHLORIDE 105 MEQ/L (98-107); POTASSIUM 3.9 MEQ/L (3.5-5.1); SODIUM (NA) 141 MEQ/L (136-145)
[2017-03-26 23:05] VITALS: BP 146/68; PULSE 102; RESP 18; O2SAT 97
[2017-03-26 23:05] LABS: ANION GAP 9 MEQ/L (5-15)
[2017-03-26 23:06] LABS: BLOOD UREA NITROGEN 13 MG/DL (7-18)
[2017-03-26 23:08] LABS: ALT (GPT) 37 U/L (10-53); AST (GOT) 21 U/L (15-37)
[2017-03-26 23:09] LABS: GLOMERULAR FILTRATION RATE 73 ML/MIN (>89)
[2017-03-26 23:10] LABS: TOTAL BILIRUBIN ADULT 0.2 MG/DL (0.2-1.0)
[2017-03-26 23:11] LABS: ALKALINE PHOSPHATASE 97 U/L (45-117)
[2017-03-26] MEDS ORDERED: Vancomycin Consult Pharmacy 1 EA OTHER SCH (23:15)
[2017-03-26] MEDS ORDERED: KETOROLAC TROMETHAMINE 60 MG/2 ML (IM) VIAL IVP ONE (23:15)
[2017-03-26] MEDS ORDERED: SODIUM CHLORIDE 0.9% FLUSH 10 ML FLUSH IV FLUSH PRN (23:15)
[2017-03-26] MEDS ORDERED: VANCOMYCIN INJ 1,500 MG in SODIUM CHLORID 0.9% 500 ML INJ 500 ML IV ONE (23:15)
[2017-03-26] MEDS ORDERED: ZOLPIDEM TARTRATE 5 MG TAB PO PRN (23:30)
[2017-03-26] MEDS ORDERED: ASPI81CH37 CHEW (23:46)
[2017-03-26] MEDS ORDERED: THERTAB17 PO (23:46)
[2017-03-26] MEDS ORDERED: EVEN10003 PO (23:46)
[2017-03-26] MEDS ORDERED: COQ-100C5 PO (23:46)
[2017-03-26] MEDS ORDERED: BIOT10TA PO (23:46)
[2017-03-26] MEDS ORDERED: LEVO137T2 PO (23:46)
[2017-03-26] MEDS ORDERED: OXYC1TAB63 PO (23:46)
[2017-03-26] MEDS ORDERED: REST15CA PO (23:46)
[2017-03-26] MEDS ORDERED: LECI12002 PO (23:46)
[2017-03-26] MEDS ORDERED: CHOL5000 PO (23:46)
[2017-03-26] MEDS ORDERED: VALA500T PO (23:47)
[2017-03-27] VITALS: BP 104/51; PULSE 96; RESP 18; O2SAT 95
[2017-03-27 00:15] VITALS: BP 110/54; PULSE 90; RESP 20; TEMP 98.4; O2SAT 97
[2017-03-27] MEDS ORDERED: VANCOMYCIN INJ 1,000 MG in SODIUM CHLOR 0.9% 250 ML INJ 250 ML IV SCH (00:15)
[2017-03-27] MEDS: oxyCODONE/ACETAMINOPHEN 5 MG/325 MG TAB PO PRN ×4 (01:15→22:46)
[2017-03-27 07:15] LABS: AUTOMATED NEUTROPHIL # 7.1 TH/MM3 (1.8-7.7); BASOPHIL # 0.1 TH/MM3 (0-0.2); BASOPHIL % 0.7 % (0.0-2.0); EOSINOPHIL # 0.2 TH/MM3 (0-0.4); EOSINOPHIL % 2.2 % (0.0-4.0); HEMATOCRIT 35.1 % (35.0-46.0); HEMO FLAGS DIFF FINAL; LYMPH % 14.7 % (9.0-44.0); LYMPHOCYTE # 1.4 TH/MM3 (1.0-4.8); MEAN CELL VOLUME 92.7 FL (80.0-100.0); MEAN CORPUSCULAR HEMOGLOBIN 32.4 PG (27.0-34.0); MEAN CORPUSCULAR HGB CONC 34.9 % (32.0-36.0); MONO % 8.1 % (0.0-8.0); NEUT % 74.3 % (16.0-70.0); PLATELET COUNT 205 TH/MM3 (150-450); RED BLOOD COUNT 3.78 MIL/MM3 (4.00-5.30); RED CELL DISTRIBUTION WIDTH 15.5 % (11.6-17.2); WHITE BLOOD COUNT 9.6 TH/MM3 (4.0-11.0)
[2017-03-27 07:23] LABS: POTASSIUM 3.4 MEQ/L (3.5-5.1)
[2017-03-27 07:28] LABS: BICARBONATE 25.1 MEQ/L (21.0-32.0)
[2017-03-27 08:00] VITALS: BP 97/57; PULSE 75; RESP 18; TEMP 97.5; O2SAT 97
[2017-03-27] MEDS: SODIUM CHLORIDE 0.9% FLUSH 10 ML FLUSH IV FLUSH SCH ×2 (09:37→20:13)
[2017-03-27] MEDS ORDERED: oxyCODONE/ACETAMINOPHEN 5 MG/325 MG TAB PO PRN (12:15)
[2017-03-27] MEDS ORDERED: BACLOFEN 20 MG TAB PO PRN (12:15)
--- NOTE | 2017-03-27 13:29 | MH ---
cc: FLETCHER NGUYEN DATE OF ADMISSION 03/26/2017 ADMISSION DIAGNOSIS Facial cellulitis HISTORY OF PRESENT ILLNESS Ms. Sanchez is a 62-year-old female who presented to the emergency room with worsening redness and itching and pain on her face over the last 24 hours. According to her, she started noticing some discomfort actually on Friday, but she had an appointment to see her primary care physician the following day so she waited until that appointment. At that time, some tenderness was noted over her cheeks and a little bit of irritation over her nose. She was also complaining of some dry eyes. At that time, they felt that perhaps she had some allergies and that may have been the cause of the symptoms. She said, however, over the course of the next day, her symptoms got increasingly worse. She developed a rash over her forehead and to her cheeks and her chin. It was burning and itching and her dry eyes continued to get worse for which she presented to the emergency room. She states that at that time she also had significant chills at home needing a sweater to cover herself despite having the air conditioning off, but she never documented any fever. She also states that she had noticed some increased pain in the joints of her fingers bilaterally. She denies any use of any new medication. No change in medication. No new motion. No face cream. No hair dye. No makeup. She denies coming into contact with any chemicals while working in her yard or any new plants while working in her yard. She does notice that she does feel that she is getting some blisters now on her cheek area as well. She had been out of the country approximately three weeks ago on vacation in [place], but has done well since she came back until now. PAST MEDICAL HISTORY Significant for: 1. Arthritis 2. Asthma 3. She does have anxiety. 4. Coronary artery disease 5. Chronic pain 6. She does have dysphagia as a residual from her CVA. 7. She has been treated for her dermatitis before. 8. Hypertension 9. Hyperlipidemia 10. Hypothyroidism 11. She tells me that she has been diagnosed with Sj gren's and a lupus-like syndrome. 12. She has significant peripheral arterial disease. 13. She has also been diagnosed with sarcoidosis. PAST SURGICAL HISTORY Includes: 1. Appendectomy 2. Lumpectomy 3. She has had bypass grafts. 4. Carotid enterectomy 5. Cholecystectomy 6. She has had foot surgery after getting her feet cut in an oyster bed. 7. Laminectomy 8. She has had PTCA with stent placement. 9. Tonsillectomy 10. Total abdominal hysterectomy with BSO ALLERGIES MULTIPLE AND INCLUDE: CONTRAST, SHE SAYS SHE IS ALLERGIC TO ACETAMINOPHEN, BUT SHE TAKES PERCOCET. SHE IS ALLERGIC TO BENZOCAINE AND LIDOCAINE, APPARENTLY SHE GETS SHORT OF BREATH. CODEINE CAUSES ITCHING. CURRENT MEDICATIONS Include: 1. Valacyclovir 500 mg daily, she takes of 1000 if she has a flare-up. 2. Plaquenil 200 mg twice a day 3. Baclofen 20 mg as needed for muscle spasms 4. Cilostazol 100 mg twice a day 7. Simvastatin 20 mg daily 8. Baby aspirin 9. She takes Percocet 5/325 as needed for pain. 10. Topamax 100 mg twice a day 11. Wellbutrin XL 150 mg daily 12. Temazepam 50 mg. This is a new medication for her which she still has not tried yet. 13. Krill oil 14. Metformin 500 mg daily 15. Levothyroxine 137 mcg daily 16. B12 17. Biotin 18. Vitamin D 19. Multivitamin 20. Coenzyme Q 21. Evening [place] oil 22. Lecithin HABITS She was a former smoker. She does not consume alcohol. SOCIAL HISTORY She says that she is currently getting a . 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 Her brother lives locally and she helps care for him. REVIEW OF SYSTEMS See HPI. She states aside from these recent events, she feels that she has been doing relatively well for her. No chest pain or shortness of breath. She did have problems with palpitations in the past, but this was corrected when her thyroid dose was decreased. No abdominal pain. No change in bowel movements. Good appetite. No extremity swelling. She says that since she had her last femoral bypass, she has done well in terms of claudication. PHYSICAL EXAM VITAL SIGNS: Temperature is 97.5, pulse is 75, respirations 18, blood pressure is 97/57, pulse ox is 97%. GENERAL: She is alert and oriented in the hospital bed very pleasant and conversant. HEAD, EYES, EARS, NOSE, AND THROAT: Normocephalic and atraumatic. EOM is intact. She has an erythematous rash that extends over her forehead. It actually spares her cheondoism region bilaterally, extends over into her nose and on both cheeks. It spares the upper lips and it also goes to her chin. It does not go into her ears or into her neck as far as I can determine. It does seem to go into her scalp. There is some peeling particularly in the area close to the nose. She does have a little ayla inserted on her left nares. There is a clear oropharynx. NECK: Supple. LUNGS: Clear to auscultation. She is not wheezing. HEART: Regular. She has no ectopy or murmur. ABDOMEN: Good bowel sounds. EXTREMITIES: Shows no clubbing, cyanosis or edema. She does have scars from prior endarterectomy on the left side, as well as a bypass the left thigh. LABS WORK THAT WAS DONE white count of 13.1, hemoglobin of 13.5, hematocrit of 39.7, platelet count of 246, neutrophils were 83.8. Sodium was 141, potassium 3.9, BUN 13, creatinine 0.8, random glucose was 113. Liver enzymes were normal. Lactic acid was 1.8. UA was clear. ASSESSMENT A 62-year-old female presenting with what appears to be, at this point, facial cellulitis. I have gone ahead and started her on the vancomycin. We will follow her clinically and monitor her response to treatment. For her history of Sj gren's and lupus like syndrome, we will continue with her Plaquenil. For her chronic pain, we will continue with her home medications. We will continue to monitor her closely. At this point, I do feel this is maybe a cellulitis. She showed me a picture of her presentation last night and when I compare it to h ow she looks today, it actually looks fairly stable. It looks like this was of rather rapid onset. Further recommendations as the case develops. Thank you. MD SHANELL Vizcarra/CONNIE /12:37 PM /12:56 PM
[2017-03-27] MEDS ORDERED: POTASSIUM CHLORIDE 20 MEQ CONTROLLED RELEASE TAB PO ONE (13:30)
[2017-03-27] MEDS: CILOSTAZOL 100 MG TAB PO SCH ×2 (13:46→20:14)
[2017-03-27] MEDS: NS + KCL 20 MEQ INJ 1,000 ML IV SCH (13:47)
[2017-03-27] MEDS: valACYclovir HCL 500 MG TAB PO SCH (13:48)
[2017-03-27] MEDS: HYDROXYCHLOROQUINE SULFATE 200 MG TAB PO SCH ×2 (13:50→20:13)
[2017-03-27] MEDS: ASPIRIN 81 MG CHEW TAB CHEW SCH (13:50)
[2017-03-27] MEDS: KETOROLAC TROMETHAMINE 30 MG/ML (IVP) VIAL IVP PRN ×2 (13:52→20:09)
[2017-03-27 16:00] VITALS: BP 98/57; PULSE 78; RESP 18; TEMP 96.6; O2SAT 98
[2017-03-27] MEDS: hydrOXYzine HCL 10 MG TAB PO PRN (18:49)
[2017-03-27 20:00] VITALS: BP 127/76; PULSE 74; RESP 20; TEMP 97.9; O2SAT 100
[2017-03-27] MEDS: VANCOMYCIN INJ 1,250 MG in SODIUM CHLOR 0.9% 250 ML INJ 250 ML IV SCH (20:12)
[2017-03-27] MEDS: buPROPion HCL 100 MG SUSTAINED RELEASE TAB PO SCH (20:14)
[2017-03-27] MEDS ORDERED: NON-FORMULARY DRUG (Biotin 10 MG) PO SCH (21:00)
[2017-03-27] MEDS: TEMAZEPAM 15 MG CAP PO PRN (22:45)
[2017-03-28] VITALS: BP 98/61; PULSE 67; RESP 20; TEMP 97.8; O2SAT 98
[2017-03-28] MEDS: hydrOXYzine HCL 10 MG TAB PO PRN ×3 (00:36→13:17)
[2017-03-28] MEDS: NS + KCL 20 MEQ INJ 1,000 ML IV SCH ×3 (01:25→23:35)
[2017-03-28 05:44] LABS: AUTOMATED NEUTROPHIL # 3.4 TH/MM3 (1.8-7.7); BASOPHIL % 0.5 % (0.0-2.0); EOSINOPHIL # 0.2 TH/MM3 (0-0.4); EOSINOPHIL % 4.4 % (0.0-4.0); HEMATOCRIT 35.6 % (35.0-46.0); HEMO FLAGS DIFF FINAL; LYMPH % 23.4 % (9.0-44.0); LYMPHOCYTE # 1.3 TH/MM3 (1.0-4.8); MEAN CELL VOLUME 91.5 FL (80.0-100.0); MEAN CORPUSCULAR HEMOGLOBIN 30.3 PG (27.0-34.0); MEAN CORPUSCULAR HGB CONC 33.1 % (32.0-36.0); MONO % 10.8 % (0.0-8.0); NEUT % 60.9 % (16.0-70.0); PLATELET COUNT 203 TH/MM3 (150-450); RED BLOOD COUNT 3.89 MIL/MM3 (4.00-5.30); RED CELL DISTRIBUTION WIDTH 14.6 % (11.6-17.2); WHITE BLOOD COUNT 5.5 TH/MM3 (4.0-11.0)
[2017-03-28 06:01] LABS: CHLORIDE 111 MEQ/L (98-107); POTASSIUM 3.9 MEQ/L (3.5-5.1); SODIUM (NA) 144 MEQ/L (136-145)
[2017-03-28 06:12] LABS: ALKALINE PHOSPHATASE 73 U/L (45-117); ALT (GPT) 26 U/L (10-53); ANION GAP 9 MEQ/L (5-15); AST (GOT) 16 U/L (15-37); BICARBONATE 24.1 MEQ/L (21.0-32.0); BLOOD UREA NITROGEN 14 MG/DL (7-18); GLOMERULAR FILTRATION RATE 95 ML/MIN (>89); TOTAL BILIRUBIN ADULT 0.3 MG/DL (0.2-1.0)
[2017-03-28] MEDS: LEVOTHYROXINE SODIUM 25 MCG TAB PO SCH (06:24)
[2017-03-28] MEDS: LEVOTHYROXINE SODIUM 112 MCG TAB PO SCH (06:24)
[2017-03-28 08:00] VITALS: BP 149/84; PULSE 75; RESP 20; TEMP 95.9; O2SAT 100
[2017-03-28] MEDS: CILOSTAZOL 100 MG TAB PO SCH ×2 (08:32→19:50)
[2017-03-28] MEDS: VITAMIN B COMPLEX/VIT C TAB PO SCH (08:32)
[2017-03-28] MEDS: MULTIVITAMINS/MINERALS THERAPEUTIC TAB PO SCH (08:32)
[2017-03-28] MEDS: valACYclovir HCL 500 MG TAB PO SCH ×2 (08:32→19:50)
[2017-03-28] MEDS: metFORMIN HCL 500 MG TAB PO SCH (08:32)
[2017-03-28] MEDS: CHOLECALCIFEROL (VIT D3) 5000 UNIT CAP PO SCH (08:33)
[2017-03-28] MEDS: buPROPion HCL 100 MG SUSTAINED RELEASE TAB PO SCH ×2 (08:33→19:50)
[2017-03-28] MEDS: HYDROXYCHLOROQUINE SULFATE 200 MG TAB PO SCH ×2 (08:33→19:50)
[2017-03-28] MEDS: PRAVASTATIN SOD 40 MG TAB PO SCH (08:33)
[2017-03-28] MEDS: SODIUM CHLORIDE 0.9% FLUSH 10 ML FLUSH IV FLUSH SCH ×2 (08:33→19:51)
[2017-03-28] MEDS: ASPIRIN 81 MG CHEW TAB CHEW SCH (08:33)
[2017-03-28] MEDS: oxyCODONE/ACETAMINOPHEN 5 MG/325 MG TAB PO PRN ×2 (08:35→13:16)
[2017-03-28] MEDS ORDERED: LECITHIN SOY PO SCH (09:00)
[2017-03-28] MEDS ORDERED: EVENING PRIMROSE OIL PO SCH (09:00)
[2017-03-28] MEDS ORDERED: KRILL OIL PO SCH (09:00)
[2017-03-28] MEDS ORDERED: NON-FORMULARY DRUG (Coenzyme Q10 (Ubidecarenone) (Coq-10 Tr) 1 CAP) PO SCH (09:00)
[2017-03-28] MEDS: KETOROLAC TROMETHAMINE 30 MG/ML (IVP) VIAL IVP PRN (10:46)
[2017-03-28 12:00] VITALS: BP 94/52; PULSE 83; RESP 20; TEMP 97.4; O2SAT 96
[2017-03-28] MEDS: VANCOMYCIN INJ 1,250 MG in SODIUM CHLOR 0.9% 250 ML INJ 250 ML IV SCH (13:18)
--- NOTE | 2017-03-28 14:19 | HHI.PR ---
Subjective Remarks Still with a lot of facial pain, medications not helping , now has herpes lesion on her lip ambulating in [place] and to bathroom Objective Vitals Vital Signs Date Time Temp Pulse Resp B/P (MAP) Pulse Ox O2 Delivery O2 Flow Rate FiO2 03/28/17 12:00 97.4 83 20 94/52 (66) 96 03/28/17 11:54 18 03/28/17 09:35 20 03/28/17 08:00 95.9 75 20 149/84 (105) 100 03/28/17 00:00 97.8 67 20 98/61 (73) 98 03/27/17 20:00 97.9 74 20 127/76 (93) 100 03/27/17 16:00 96.6 78 18 98/57 (71) 98 03/28/17 03/28/17 03/29/17 15:00 23:00 07:00 Intake Total 60 ml Balance 60 ml Intake Oral 60 ml # Voids 1 # Bowel Movements 0 Result Diagram: 03/28/17 0510 03/28/17 0510 Objective Remarks Sitting up in bed erythema forehead into scalp, spares temporal area, over nose and both cheeks, over eyelids with some edema, slight peeling does not extend into her neck, blister over left lip lungs cta hear rrr not tachycardic ext no edema A/P Problem List: (1) Facial cellulitis ICD Codes: L03.211 - Cellulitis of face Status: Acute Plan: cont vancomycin, area has not increased expect to see some clinical improvement by claudia, the pain medication is not helping her will add iv dilaudid , increase atarax (2) Herpes ICD Codes: B00.9 - Herpesviral infection, unspecified Status: Acute Plan: having a flare with stress of illness, will increase her valtrex (3) Sjogren's disease ICD Codes: M35.00 - Sicca syndrome, unspecified Status: Chronic Plan: on plaquenil for this and a lupus like syndrome, initially thought she may have a lupus rash cont plaquinel (4) PAD (peripheral artery disease) ICD Codes: I73.9 - Peripheral vascular disease, unspecified Status: Chronic Plan: cont pletal and aspirin Roberta Donnelly MD Mar 28, 2017 14:19
[2017-03-28] MEDS ORDERED: hydrOXYzine HCL 25 MG TAB PO PRN (14:30)
[2017-03-28] MEDS ORDERED: HYDROmorphone HCL PF 1 MG/ML VIAL IV PUSH PRN (14:45)
[2017-03-28 16:00] VITALS: BP 124/77; PULSE 76; RESP 20; TEMP 96.3; O2SAT 97
[2017-03-28] MEDS ORDERED: MAGNESIUM HYDROXIDE SUSP 30 ML CUP PO ONE (19:00)
[2017-03-28 20:15] VITALS: BP 121/75; PULSE 80; RESP 20; TEMP 96; O2SAT 98
[2017-03-28] MEDS: TEMAZEPAM 15 MG CAP PO PRN (22:14)
[2017-03-28] MEDS: HYDROmorphone HCL PF 1 MG/ML VIAL IV PUSH PRN (22:16)
[2017-03-28] MEDS: TOPIRAMATE 100 MG TAB PO PRN (23:35)
[2017-03-29 00:15] VITALS: BP 120/69; PULSE 71; RESP 20; TEMP 96.8; O2SAT 97
[2017-03-29] MEDS: LEVOTHYROXINE SODIUM 112 MCG TAB PO SCH (05:35)
[2017-03-29] MEDS: LEVOTHYROXINE SODIUM 25 MCG TAB PO SCH (05:35)
--- NOTE | 2017-03-29 07:03 | HHI.PR ---
Subjective Remarks Her pain in her face is lessening and she thinks it is less red. No other complaints Objective Vitals Vital Signs Date Time Temp Pulse Resp B/P (MAP) Pulse Ox O2 Delivery O2 Flow Rate FiO2 03/29/17 00:15 96.8 71 20 120/69 (86) 97 03/28/17 20:15 96.0 80 20 121/75 (90) 98 03/28/17 16:13 18 03/28/17 16:00 96.3 76 20 124/77 (93) 97 03/28/17 15:10 20 03/28/17 12:00 97.4 83 20 94/52 (66) 96 03/28/17 11:54 18 03/28/17 08:00 95.9 75 20 149/84 (105) 100 Result Diagram: 03/28/17 0510 03/28/17 0510 Other Results Laboratory Tests Test 03/28/17 05:10 White Blood Count 5.5 TH/MM3 Red Blood Count 3.89 MIL/MM3 Hemoglobin 11.8 GM/DL Hematocrit 35.6 % Mean Corpuscular Volume 91.5 FL Mean Corpuscular Hemoglobin 30.3 PG Mean Corpuscular Hemoglobin Concent 33.1 % Red Cell Distribution Width 14.6 % Platelet Count 203 TH/MM3 Mean Platelet Volume 8.6 FL Neutrophils (%) (Auto) 60.9 % Lymphocytes (%) (Auto) 23.4 % Monocytes (%) (Auto) 10.8 % Eosinophils (%) (Auto) 4.4 % Basophils (%) (Auto) 0.5 % Neutrophils # (Auto) 3.4 TH/MM3 Lymphocytes # (Auto) 1.3 TH/MM3 Monocytes # (Auto) 0.6 TH/MM3 Eosinophils # (Auto) 0.2 TH/MM3 Basophils # (Auto) 0.0 TH/MM3 CBC Comment DIFF FINAL Differential Comment Blood Urea Nitrogen 14 MG/DL Creatinine 0.64 MG/DL Random Glucose 109 MG/DL Total Protein 5.6 GM/DL Albumin 2.6 GM/DL Calcium Level 8.6 MG/DL Alkaline Phosphatase 73 U/L Aspartate Amino Transf (AST/SGOT) 16 U/L Alanine Aminotransferase (ALT/SGPT) 26 U/L Total Bilirubin 0.3 MG/DL Sodium Level 144 MEQ/L Potassium Level 3.9 MEQ/L Chloride Level 111 MEQ/L Carbon Dioxide Level 24.1 MEQ/L Anion Gap 9 MEQ/L Estimat Glomerular Filtration Rate 95 ML/MIN Objective Remarks Exam: Pleasant female in no distress. HEENT: Pupils equal, no scleral icterus, mouth negative She has an erythematous dry rash on her forehead bilateral cheeks extending up to the nose. There is just minimal swelling in the right zygomatic area. Neck: No JVD Heart: RRR without murmurs Lungs: Clear Abdomen: soft, nontender Neuro: Alert, oriented A/P Assessment and Plan Assessment: --Facial cellulitis--improving --Sjogren's syndrome --Peripheral artery disease --Hyperlipidemia --Hypothyroidism Plan: Continue Vancomycin for at least another day. Add Hydrocortisone cream to apply to face since there is some itching. Juan Carlos Anna MD Mar 29, 2017 07:03
[2017-03-29 08:27] LABS: AUTOMATED NEUTROPHIL # 2.5 TH/MM3 (1.8-7.7); BASOPHIL % 0.8 % (0.0-2.0); EOSINOPHIL # 0.3 TH/MM3 (0-0.4); EOSINOPHIL % 5.6 % (0.0-4.0); HEMATOCRIT 34.9 % (35.0-46.0); HEMO FLAGS DIFF FINAL; LYMPH % 33.1 % (9.0-44.0); LYMPHOCYTE # 1.7 TH/MM3 (1.0-4.8); MEAN CELL VOLUME 91.1 FL (80.0-100.0); MEAN CORPUSCULAR HEMOGLOBIN 30.3 PG (27.0-34.0); MEAN CORPUSCULAR HGB CONC 33.2 % (32.0-36.0); MONO % 10.2 % (0.0-8.0); NEUT % 50.3 % (16.0-70.0); PLATELET COUNT 222 TH/MM3 (150-450); RED BLOOD COUNT 3.83 MIL/MM3 (4.00-5.30); RED CELL DISTRIBUTION WIDTH 14.8 % (11.6-17.2)
[2017-03-29] MEDS: VITAMIN B COMPLEX/VIT C TAB PO SCH (10:08)
[2017-03-29] MEDS: buPROPion HCL 100 MG SUSTAINED RELEASE TAB PO SCH ×2 (10:08→20:06)
[2017-03-29] MEDS: CILOSTAZOL 100 MG TAB PO SCH ×2 (10:08→20:06)
[2017-03-29] MEDS: VANCOMYCIN INJ 1,250 MG in SODIUM CHLOR 0.9% 250 ML INJ 250 ML IV SCH (10:08)
[2017-03-29] MEDS: ASPIRIN 81 MG CHEW TAB CHEW SCH (10:08)
[2017-03-29] MEDS: PRAVASTATIN SOD 40 MG TAB PO SCH (10:08)
[2017-03-29] MEDS: CHOLECALCIFEROL (VIT D3) 5000 UNIT CAP PO SCH (10:09)
[2017-03-29] MEDS: metFORMIN HCL 500 MG TAB PO SCH (10:09)
[2017-03-29] MEDS: valACYclovir HCL 500 MG TAB PO SCH ×2 (10:09→20:06)
[2017-03-29] MEDS: HYDROXYCHLOROQUINE SULFATE 200 MG TAB PO SCH ×2 (10:09→20:06)
[2017-03-29] MEDS: MULTIVITAMINS/MINERALS THERAPEUTIC TAB PO SCH (10:09)
[2017-03-29] MEDS: SODIUM CHLORIDE 0.9% FLUSH 10 ML FLUSH IV FLUSH SCH ×2 (10:09→20:06)
[2017-03-29] MEDS: HYDROCORTISONE 1% CREAM 30 GM TOPICAL SCH ×3 (10:10→22:27)
[2017-03-29] MEDS: oxyCODONE/ACETAMINOPHEN 5 MG/325 MG TAB PO PRN (10:28)
[2017-03-29 12:00] VITALS: BP 147/80; PULSE 54; RESP 20; TEMP 96.5; O2SAT 100
[2017-03-29] MEDS: NS + KCL 20 MEQ INJ 1,000 ML IV SCH ×2 (12:51→22:28)
[2017-03-29 16:00] VITALS: BP 122/78; PULSE 70; RESP 20; TEMP 98; O2SAT 98
[2017-03-29] MEDS ORDERED: PIPERACILLIN/TAZ 4.5 GM VIAL 4.5 GM in SODIUM CHLORIDE 0.9% INJ 100 ML IV ONE (16:59)
[2017-03-29 20:56] VITALS: BP 132/68; PULSE 75; RESP 20; TEMP 97.2; O2SAT 98
[2017-03-29] MEDS: HYDROmorphone HCL PF 1 MG/ML VIAL IV PUSH PRN (22:27)
[2017-03-29] MEDS: TEMAZEPAM 15 MG CAP PO PRN (22:27)
[2017-03-30 00:29] VITALS: BP 133/71; PULSE 69; RESP 18; TEMP 97.2; O2SAT 98
[2017-03-30] MEDS: TOPIRAMATE 100 MG TAB PO PRN ×2 (01:18→10:41)
[2017-03-30] MEDS ORDERED: VANCOMYCIN TROUGH ONE (01:45)
[2017-03-30] MEDS: VANCOMYCIN INJ 1,250 MG in SODIUM CHLOR 0.9% 250 ML INJ 250 ML IV SCH (02:28)
[2017-03-30] MEDS: KETOROLAC TROMETHAMINE 30 MG/ML (IVP) VIAL IVP PRN ×2 (02:34→20:51)
[2017-03-30] MEDS: HYDROmorphone HCL PF 1 MG/ML VIAL IV PUSH PRN ×4 (04:20→23:06)
[2017-03-30] MEDS: LEVOTHYROXINE SODIUM 25 MCG TAB PO SCH (05:01)
[2017-03-30] MEDS: LEVOTHYROXINE SODIUM 112 MCG TAB PO SCH (05:01)
--- NOTE | 2017-03-30 07:26 | HHI.PR ---
Subjective Remarks Still complaining of pain in her face. The cortisone cream did help with her itching. Objective Vitals Vital Signs Date Time Temp Pulse Resp B/P (MAP) Pulse Ox O2 Delivery O2 Flow Rate FiO2 03/30/17 04:50 16 03/30/17 00:29 97.2 69 18 133/71 (91) 98 03/29/17 20:56 97.2 75 20 132/68 (89) 98 03/29/17 16:00 98.0 70 20 122/78 (93) 98 03/29/17 12:00 96.5 54 20 147/80 (102) 100 03/29/17 11:28 18 Result Diagram: 03/29/17 0712 03/30/17 0145 Other Results Laboratory Tests Test 03/29/17 07:12 03/30/17 01:45 White Blood Count 5.0 TH/MM3 Red Blood Count 3.83 MIL/MM3 Hemoglobin 11.6 GM/DL Hematocrit 34.9 % Mean Corpuscular Volume 91.1 FL Mean Corpuscular Hemoglobin 30.3 PG Mean Corpuscular Hemoglobin Concent 33.2 % Red Cell Distribution Width 14.8 % Platelet Count 222 TH/MM3 Mean Platelet Volume 8.6 FL Neutrophils (%) (Auto) 50.3 % Lymphocytes (%) (Auto) 33.1 % Monocytes (%) (Auto) 10.2 % Eosinophils (%) (Auto) 5.6 % Basophils (%) (Auto) 0.8 % Neutrophils # (Auto) 2.5 TH/MM3 Lymphocytes # (Auto) 1.7 TH/MM3 Monocytes # (Auto) 0.5 TH/MM3 Eosinophils # (Auto) 0.3 TH/MM3 Basophils # (Auto) 0.0 TH/MM3 CBC Comment DIFF FINAL Differential Comment Blood Urea Nitrogen 12 MG/DL Creatinine 0.56 MG/DL 0.78 MG/DL Random Glucose 82 MG/DL Calcium Level 8.7 MG/DL Sodium Level 144 MEQ/L Potassium Level 4.0 MEQ/L Chloride Level 112 MEQ/L Carbon Dioxide Level 24.0 MEQ/L Anion Gap 8 MEQ/L Estimat Glomerular Filtration Rate 110 ML/MIN 75 ML/MIN Laboratory Tests Test 03/30/17 01:45 Creatinine 0.78 MG/DL Estimat Glomerular Filtration Rate 75 ML/MIN Objective Remarks Exam: Pleasant female in no distress. HEENT: Pupils equal, no scleral icterus, mouth negative She has an erythematous dry rash on her forehead bilateral cheeks extending up to the nose. There is just minimal swelling in the right zygomatic area. Neck: No JVD Heart: RRR without murmurs Lungs: Clear Abdomen: soft, nontender Neuro: Alert, oriented A/P Assessment and Plan Assessment: --Facial cellulitis--improving but still painful --Sjogren's syndrome --Peripheral artery disease --Hyperlipidemia --Hypothyroidism Plan: Continue Vancomycin for at least another day. Add Hydrocortisone cream to apply to face since there is some itching. I will try her on Prednisone as an anti-inflammatory. Will give Solu-Medrol IV 125mg and then Prednisone 20mg daily. Juan Carlos Anna MD Mar 30, 2017 07:26
[2017-03-30 08:00] VITALS: BP 108/66; PULSE 75; RESP 16; TEMP 96.9; O2SAT 96
[2017-03-30] MEDS ORDERED: methylPREDNISolone SOD SUCC 125 MG/2 ML VIAL IV PUSH ONE (08:00)
[2017-03-30] MEDS: valACYclovir HCL 500 MG TAB PO SCH ×2 (08:14→20:50)
[2017-03-30] MEDS: VITAMIN B COMPLEX/VIT C TAB PO SCH (08:14)
[2017-03-30] MEDS: buPROPion HCL 100 MG SUSTAINED RELEASE TAB PO SCH ×2 (08:15→20:50)
[2017-03-30] MEDS: predniSONE 20 MG TAB PO SCH (08:15)
[2017-03-30] MEDS: ASPIRIN 81 MG CHEW TAB CHEW SCH (08:15)
[2017-03-30] MEDS: HYDROXYCHLOROQUINE SULFATE 200 MG TAB PO SCH ×2 (08:15→20:50)
[2017-03-30] MEDS: MULTIVITAMINS/MINERALS THERAPEUTIC TAB PO SCH (08:16)
[2017-03-30] MEDS: metFORMIN HCL 500 MG TAB PO SCH (08:16)
[2017-03-30] MEDS: PRAVASTATIN SOD 40 MG TAB PO SCH (08:16)
[2017-03-30] MEDS: CHOLECALCIFEROL (VIT D3) 5000 UNIT CAP PO SCH (08:16)
[2017-03-30] MEDS: CILOSTAZOL 100 MG TAB PO SCH ×2 (08:17→20:50)
[2017-03-30] MEDS: SODIUM CHLORIDE 0.9% FLUSH 10 ML FLUSH IV FLUSH SCH ×2 (08:21→20:52)
[2017-03-30] MEDS: HYDROCORTISONE 1% CREAM 30 GM TOPICAL SCH ×3 (08:22→23:06)
[2017-03-30] MEDS: oxyCODONE/ACETAMINOPHEN 5 MG/325 MG TAB PO PRN (08:27)
[2017-03-30 12:00] VITALS: BP 124/79; PULSE 88; RESP 16; TEMP 97.2; O2SAT 96
[2017-03-30 16:00] VITALS: BP 143/77; PULSE 91; RESP 16; TEMP 97.4; O2SAT 96
[2017-03-30 20:00] VITALS: BP 149/89; PULSE 99; RESP 20; TEMP 98.1; O2SAT 98
[2017-03-30] MEDS ORDERED: VANCOMYCIN 1,500 MG/NS 500 ML IV SCH ×2 (20:00)
[2017-03-30] MEDS: TEMAZEPAM 15 MG CAP PO PRN ×2 (20:50→23:05)
[2017-03-31] VITALS: BP 120/68; PULSE 93; RESP 20; TEMP 98.4; O2SAT 97
[2017-03-31] MEDS: NS + KCL 20 MEQ INJ 1,000 ML IV SCH (03:16)
[2017-03-31] MEDS: LEVOTHYROXINE SODIUM 112 MCG TAB PO SCH (05:09)
[2017-03-31] MEDS: LEVOTHYROXINE SODIUM 25 MCG TAB PO SCH (05:09)
[2017-03-31] MEDS: HYDROmorphone HCL PF 1 MG/ML VIAL IV PUSH PRN (07:13)
[2017-03-31] MEDS: ASPIRIN 81 MG CHEW TAB CHEW SCH (08:54)
[2017-03-31] MEDS: SODIUM CHLORIDE 0.9% FLUSH 10 ML FLUSH IV FLUSH SCH (08:54)
[2017-03-31] MEDS: HYDROCORTISONE 1% CREAM 30 GM TOPICAL SCH (08:54)
[2017-03-31] MEDS: VITAMIN B COMPLEX/VIT C TAB PO SCH (08:54)
[2017-03-31] MEDS: predniSONE 20 MG TAB PO SCH (08:55)
[2017-03-31] MEDS: metFORMIN HCL 500 MG TAB PO SCH (08:55)
[2017-03-31] MEDS: CILOSTAZOL 100 MG TAB PO SCH (08:56)
[2017-03-31] MEDS: HYDROXYCHLOROQUINE SULFATE 200 MG TAB PO SCH (08:56)
[2017-03-31] MEDS: buPROPion HCL 100 MG SUSTAINED RELEASE TAB PO SCH (08:56)
[2017-03-31] MEDS: MULTIVITAMINS/MINERALS THERAPEUTIC TAB PO SCH (08:56)
[2017-03-31] MEDS: PRAVASTATIN SOD 40 MG TAB PO SCH (08:57)
[2017-03-31] MEDS: CHOLECALCIFEROL (VIT D3) 5000 UNIT CAP PO SCH (08:57)
[2017-03-31] MEDS: valACYclovir HCL 500 MG TAB PO SCH (08:57)
[2017-03-31 09:10] VITALS: BP 127/82; PULSE 73; RESP 17; TEMP 96.7; O2SAT 99
[2017-03-31] MEDS ORDERED: PRED20 PO (10:41)
[2017-03-31] MEDS ORDERED: BACT800T5 PO (10:41)
[2017-03-31] MEDS ORDERED: HYDR1CRE70 TOPICAL (10:41)
--- NOTE | 2017-03-31 11:03 | HHI.DS ---
Discharge Summary Admission Date Mar 26, 2017 at 23:09 Discharge Date: Mar 31, 2017 Admitting Diagnosis Facial cellulitis (1) Facial cellulitis Diagnosis: Principal ICD Codes: L03.211 - Cellulitis of face Status: Acute (2) Herpes Diagnosis: Secondary ICD Codes: B00.9 - Herpesviral infection, unspecified Status: Acute (3) Sjogren's disease Diagnosis: Secondary ICD Codes: M35.00 - Sicca syndrome, unspecified Status: Chronic (4) PAD (peripheral artery disease) Diagnosis: Secondary ICD Codes: I73.9 - Peripheral vascular disease, unspecified Status: Chronic (5) Anxiety Diagnosis: Secondary ICD Codes: F41.9 - Anxiety disorder, unspecified (6) Major depression, recurrent Diagnosis: Secondary ICD Codes: F33.9 - Major depressive disorder, recurrent, unspecified (7) Hyperlipemia Diagnosis: Secondary ICD Codes: E78.5 - Hyperlipidemia, unspecified (8) Hypothyroidism Diagnosis: Secondary ICD Codes: E03.9 - Hypothyroidism, unspecified Consultants None Brief History 62 year old white female with history of Sjogren's syndrome and 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 She was seen by her PCP a few days prior to admission and was just noted to have some tenderness over her cheeks with a little irritation over her nose. Then over the next day she started getting a rash over her forehead, cheeks, and chin. It created a burning and itching sensation. She also had complained of some chills but no fever was documented. She had some pain in some of her joints of her fingers also.She denied any recent new medications, facial cream use, makeup use. She was admitted and begun on Vancomycin IV for possible cellulitis of the face. She was continue on Plaquenil for her Sjogren's and lupus like syndrome. CBC/BMP: 03/29/17 0712 03/31/17 0529 Significant Findings Laboratory Tests Test 03/26/17 22:40 03/28/17 05:10 03/29/17 07:12 03/30/17 01:45 Urine Color YELLOW Urine Turbidity CLEAR Urine pH 5.5 Urine Specific [place] 1.020 Urine Protein NEG mg/dL Urine Glucose (UA) NEG mg/dL Urine Ketones NEG mg/dL Urine Occult Blood NEG Urine Nitrite NEG Urine Bilirubin NEG Urine Leukocyte Esterase NEG Urine RBC 0-2 /hpf Urine WBC 0-2 /hpf Urine Squamous Epithelial Cells 6-8 /hpf Urine Bacteria RARE /hpf Microscopic Urinalysis Comment CULT NOT INDICATED Lactic Acid Level 1.8 mmol/L Blood Urea Nitrogen 14 MG/DL 12 MG/DL Creatinine 0.64 MG/DL 0.56 MG/DL Random Glucose 109 MG/DL 82 MG/DL Total Protein 5.6 GM/DL Albumin 2.6 GM/DL Calcium Level 8.6 MG/DL 8.7 MG/DL Alkaline Phosphatase 73 U/L Aspartate Amino Transf (AST/SGOT) 16 U/L Alanine Aminotransferase (ALT/SGPT) 26 U/L Total Bilirubin 0.3 MG/DL Sodium Level 144 MEQ/L 144 MEQ/L Potassium Level 3.9 MEQ/L 4.0 MEQ/L Chloride Level 111 MEQ/L 112 MEQ/L Carbon Dioxide Level 24.1 MEQ/L 24.0 MEQ/L White Blood Count 5.0 TH/MM3 Red Blood Count 3.83 MIL/MM3 Hemoglobin 11.6 GM/DL Hematocrit 34.9 % Mean Corpuscular Volume 91.1 FL Mean Corpuscular Hemoglobin 30.3 PG Mean Corpuscular Hemoglobin Concent 33.2 % Red Cell Distribution Width 14.8 % Platelet Count 222 TH/MM3 Mean Platelet Volume 8.6 FL Neutrophils (%) (Auto) 50.3 % Lymphocytes (%) (Auto) 33.1 % Monocytes (%) (Auto) 10.2 % Eosinophils (%) (Auto) 5.6 % Basophils (%) (Auto) 0.8 % Neutrophils # (Auto) 2.5 TH/MM3 Lymphocytes # (Auto) 1.7 TH/MM3 Monocytes # (Auto) 0.5 TH/MM3 Eosinophils # (Auto) 0.3 TH/MM3 Basophils # (Auto) 0.0 TH/MM3 CBC Comment DIFF FINAL Differential Comment Anion Gap 8 MEQ/L Vancomycin Level Trough 8.8 MCG/ML Test 03/31/17 05:29 Creatinine 0.70 MG/DL Estimat Glomerular Filtration Rate 85 ML/MIN Laboratory Tests Test 03/30/17 01:45 03/31/17 05:29 Creatinine 0.78 MG/DL 0.70 MG/DL Estimat Glomerular Filtration Rate 75 ML/MIN 85 ML/MIN Vancomycin Level Trough 8.8 MCG/ML Laboratory Tests Test 03/29/17 07:12 03/30/17 01:45 03/31/17 05:29 Red Blood Count 3.83 MIL/MM3 (4.00-5.30) Hematocrit 34.9 % (35.0-46.0) Monocytes (%) (Auto) 10.2 % (0.0-8.0) Eosinophils (%) (Auto) 5.6 % (0.0-4.0) Chloride Level 112 MEQ/L (98-107) Estimat Glomerular Filtration Rate 75 ML/MIN (>89) 85 ML/MIN (>89) PE at Discharge Exam: Pleasant female in no distress. HEENT: Pupils equal, no scleral icterus, mouth negative She has an slight erythematous dry rash on her forehead and bilateral cheeks extending up to the nose. The rash has faded over the last two days. It is not tender today (since steroids were begun yesterday) Neck: No JVD Heart: RRR without murmurs Lungs: Clear Abdomen: soft, nontender Neuro: Alert, oriented Hospital Course Patient was admitted Dr Aba Locke and begun on Vancomycin. I saw her initially on 03-29-17. She still had redness of the forehead and bilateral cheek region. I saw her on 03-30-17 and ordered 125mg of Solu-Medrol IV and started her on oral Prednisone because of rheumatological history. The rash to me did not have the classical appearance of a facial cellulitis especially in view of its bilateral presentation. She seemed to actually get a good response with the steroids with her skin discomfort improving. Hydrocortisone cream 1% also helped with facial itching. She feels better today and stated she would like to go home. I think she can be discharged on Prednisone. I will cover her with Septra DS one twice a day for 7 days also. She will be given Prednisone 20mg daily for 6 days. I have recommended she see Dr Avila in 2 days to see if the facial redness is continuing to improve. She will resume her home medications. Pt Condition on Discharge: Stable Discharge Disposition: Discharge Home Discharge Instructions DIET: Follow Instructions for: Heart Healthy Diet, Low Sodium Diet Activities you can perform: Regular-No Restrictions Follow up Referrals: PCP Follow-up - 2-[address] Avila New Medications: Sulfamethoxazole-Trimethoprim (Bactrim DS) 800-160 Mg Tab 1 TAB PO BID for Infection, #14 TAB 0 Refills Hydrocortisone (Topical) (Eq Anti-Itch Maximum Stre) 1 % Cre 1 APPLIC TOPICAL Q8H for dermatitis, #30 TUBE Prednisone (Prednisone) 20 Mg Tab 20 MG PO DAILY for dermatitis for 5 Days, #5 TAB Continued Medications: Aspirin (Aspirin Low Dose) 81 Mg Chew 81 MG CHEW DAILY, TAB 0 Refills B-Complex Vitamins (Vitamin B Complex) 1 Tab 1000 MCG PO DAILY Baclofen (Baclofen) 20 Mg Tab 20 MG PO TID for Muscle Spasm, TAB 0 Refills Biotin (Biotin) 10 Mg Tab 10 MG PO BID for Nutritional Supplement, #1 BOTTLE 0 Refills Bupropion HCl ER 24 HR (Wellbutrin Xl 24 HR) 150 Mg Tab 450 MG PO DAILY for Control Depression, TAB 0 Refills Cholecalciferol (Vitamin D3) 5,000 Unit Cap 5000 UNITS PO DAILY for Nutritional Supplement, #30 CAP 0 Refills Cilostazol (Cilostazol) 100 Mg Tab 100 MG PO BID for INTERMITTENT CLAUDICATION, TAB 0 Refills Coenzyme Q10 (Ubidecarenone) (Coq-10 Tr) 100 Mg Cap 1 CAP PO DAILY Evening [place] Oil (Evening [place] Oil) 1,000 Mg Cap 1 CAP PO DAILY Hydroxychloroquine (Plaquenil) 200 Mg Tab 200 MG PO BID, #30 TAB 0 Refills Take with food Krill Oil (Krill Oil [place]-3 300 mg) 1 Cap Cap 300 MG PO DAILY Lecithin, Soy (Lecithin) 1,200 Mg Capsule 1 CAP PO DAILY Levothyroxine (Levothyroxine) 137 Mcg Tab 137 MCG PO DAILY for Thyroid, #30 TAB 0 Refills Metformin (Metformin) 500 Mg Tab 500 MG PO DAILY for Blood Sugar Management, #30 TAB 0 Refills With a meal Multiple Vitamins W/ Minerals (Thera-M) 1 Tab 1 TAB PO DAILT for Nutritional Supplement, TAB 0 Refills Oxycodone-Acetaminophen (Oxycodone-Acetaminophen) 5-325 mg Tab 1 TAB PO Q6H, TAB 0 Refills Simvastatin (Simvastatin) 20 Mg Tab 20 MG PO DAILY for Cholesterol Management, #30 TAB 0 Refills Temazepam (Restoril) 15 Mg Cap 15 MG PO HS PRN for INSOMNIA, #30 CAP 0 Refills Topiramate (Topamax) 100 Mg Tab 100 MG PO BID PRN for FOR MIGRAINS, #60 TAB 0 Refills Valacyclovir (Valacyclovir) 500 Mg Tab 500 MG PO DAILY for Mgmt Viral Infection, #30 TAB 0 Refills Discontinued Medications: Valacyclovir (Valacyclovir) 1 Gm Tab 1000 MG PO DAILY for Mgmt Viral Infection, #30 TAB 0 Refills Juan Carlos Anna MD Mar 31, 2017 11:02
[2017-03-31] MEDS: oxyCODONE/ACETAMINOPHEN 5 MG/325 MG TAB PO PRN (11:52)
[2017-04-02] MEDS ORDERED: PHARMACY ORDERED LAB ONE (01:45)
== END 2017-03-31 12:28 | disposition home or self-care (01) ==
LOC: PHED 21:37 → INTOOBSV 23:09 → PHEDA 23:09 → PH3B 03-27 00:10
PROVIDERS: ADMIT Legal Medicine; ATTEND Legal Medicine
DX: L03.211 Cellulitis of face (principal); B00.9 Herpesviral infection, unspecified; M35.00 Sjogren syndrome, unspecified; I73.9 Peripheral vascular disease, unspecified; F41.9 Anxiety disorder, unspecified; F33.9 Major depressive disorder, recurrent, unspecified; E78.5 Hyperlipidemia, unspecified; E03.9 Hypothyroidism, unspecified; I25.10 Atherosclerotic heart disease of native coronary artery without angina pectoris; I48.91 Unspecified atrial fibrillation; Z87.891 Personal history of nicotine dependence
CPT/HCPCS: 80048; 80053; 80202; 81001; 82565; 83605; 85025; 96361; 96365; 96366; 96375; 96376; 99285; G0378; J1170; J1885; J2930; J3370; J3480; J7040; J7050; J7512

== ENCOUNTER 2017-09-04 14:11 | Observation (INO) | payer MEDICARE, OTHER ==
[~2017-09-04] VITALS: Ht 170.2 cm; Wt 75.7 kg
[~2017-09-04 14:11] MED LIST changes: -AMBI5TAB PO; -ASPI1TAB69 PO; +ASPI81CH6 CHEW; +BACT800T5 PO; +BIOT10TA PO; -BIOT7500 PO; +CHOL5000 PO; -CHOL50008 PO; -COQ-100C2 PO; +COQ-100C5 PO; -EVEN1000 PO; +EVEN10003 PO; +HYDR1CRE70 TOPICAL; +LECI12002 PO; -LECIGRA PO; +LEVO137T2 PO; -LEVO150T7 PO; -MACR100C2 PO; -MULTCAP PO; +OXYC1TAB63 PO; -PHEN0.4T PO; +PRED20 PO; +REST15CA PO; +THERTAB17 PO; -TOPA100T11 PO; +TOPI100 PO; -VALA1TAB PO; +VALA500T PO
[2017-09-04] MEDS ORDERED: SODIUM BICARBONATE 100 MEQ in D5W 1000 ML IV SCH (15:15)
[2017-09-04 15:17] VITALS: BP 141/94; PULSE 106; RESP 18; TEMP 98.1; O2SAT 95
[2017-09-04 15:35] LABS: AUTOMATED NEUTROPHIL # 8.1 TH/MM3 (1.8-7.7); BASOPHIL % 0.1 % (0.0-2.0); HEMATOCRIT 42.5 % (35.0-46.0); HEMOGLOBIN 14.8 GM/DL (11.6-15.3); LYMPH % 6.6 % (9.0-44.0); LYMPHOCYTE # 0.6 TH/MM3 (1.0-4.8); MEAN CELL VOLUME 92.2 FL (80.0-100.0); MEAN CORPUSCULAR HEMOGLOBIN 32.1 PG (27.0-34.0); MEAN CORPUSCULAR HGB CONC 34.8 % (32.0-36.0); MEAN PLATELET VOLUME 8.6 FL (7.0-11.0); MONO % 1.8 % (0.0-8.0); MONOCYTE # 0.2 TH/MM3 (0-0.9); NEUT % 91.5 % (16.0-70.0); PLATELET COUNT 305 TH/MM3 (150-450); RED BLOOD COUNT 4.61 MIL/MM3 (4.00-5.30); RED CELL DISTRIBUTION WIDTH 14.1 % (11.6-17.2); WHITE BLOOD COUNT 8.8 TH/MM3 (4.0-11.0)
[2017-09-04] MEDS ORDERED: MULTTAB67 PO (15:36)
[2017-09-04] MEDS ORDERED: PANT40TA3 PO (15:36)
[2017-09-04] MEDS ORDERED: ASPI325T27 PO (15:36)
[2017-09-04] MEDS ORDERED: FOLI400T PO (15:36)
[2017-09-04] MEDS ORDERED: COLA100C5 PO (15:36)
[2017-09-04] MEDS ORDERED: COQ-30CA2 PO (15:36)
[2017-09-04] MEDS ORDERED: ALPR.25 PO (15:36)
[2017-09-04] MEDS ORDERED: VALG1TAB PO (15:36)
[2017-09-04 15:50] LABS: BICARBONATE 22.4 MEQ/L (21.0-32.0); CALCIUM 9.8 MG/DL (8.5-10.1); CREATININE 0.77 MG/DL (0.50-1.00)
[2017-09-04 15:59] LABS: PROTHROMBIN TIME - PATIENT 10.2 SEC (9.8-11.6)
[2017-09-04] MEDS ORDERED: methylPREDNISolone SOD SUCC 125 MG/2 ML VIAL IV SCH (16:00)
[2017-09-04] MEDS ORDERED: MIDAZOLAM HCL 5 MG/5 ML VIAL ONE ×2 (17:12→17:20)
[2017-09-04] MEDS ORDERED: BUPIVACAINE HCL PF 0.5% 10 ML VIAL ONE (17:15)
--- NOTE | 2017-09-04 17:16 | HHI.HP ---
History of Present Illness Chief Complaint: L LE vein graft stenosis History of Present Illness 62 yo female with PAD and L LE bypass, now with asymptomatic vein graft stenosis on surveillance duplex Past/Family/Social History Past Medical History PAD HTN XOL DM CVOD Past Surgical History L LE bypass x 2 Social History does not smoke Family History NC Home Medications Reported Medications Pantoprazole (Pantoprazole) 40 Mg Tab, 40 MG PO DAILY for Reflux, #30 TAB 0 Refills 09/04/17 Multiple Vitamin (Multiple Vitamin) 1 Tab, 1 TAB PO DAILY for Nutritional Supplement, TAB 0 Refills 09/04/17 Folic Acid (Folic Acid) 0.4 Mg Tab, 400 MCG PO DAILY for Nutritional Supplement , TAB 0 Refills 09/04/17 Docusate Sodium (Colace) 100 Mg Capsule, 100 MG PO Q6HR for Prevent Constipation , #60 CAP 0 Refills 09/04/17 Coenzyme Q10 (Ubidecarenone) (Coq-10) 30 Mg Cap, PO DAILY 09/04/[address] (Aspirin DR) 325 Mg Tabdr, 325 MG PO DAILY, TAB 0 Refills 09/04/17 Alprazolam (Xanax) 0.25 Mg Tab, 0.25 MG PO Q4H Y for ANXIETY, TAB 0 Refills 09/04/17 Valganciclovir (Valganciclovir) 450 Mg Tab, 100 MG PO DAILY for Mgmt Viral Infection, #30 TAB 0 Refills 09/04/17 Oxycodone-Acetaminophen (Oxycodone-Acetaminophen) 5-325 mg Tab, 1 TAB PO Q6H, TAB 0 Refills 03/26/17 Levothyroxine (Levothyroxine) 137 Mcg Tab, 137 MCG PO DAILY for Thyroid, #30 TAB 0 Refills 03/26/17 Multiple Vitamins W/ Minerals (Thera-M) 1 Tab, 1 TAB PO DAILT for Nutritional Supplement, TAB 0 Refills 03/26/17 Coenzyme Q10 (Ubidecarenone) (Coq-10 Tr) 100 Mg Cap, 1 CAP PO DAILY 03/26/17 Cholecalciferol (Vitamin D3) 5,000 Unit Cap, 5000 UNITS PO DAILY for Nutritional Supplement, #30 CAP 0 Refills 03/26/17 Baclofen (Baclofen) 20 Mg Tab, 20 MG PO TID for Muscle Spasm, TAB 0 Refills 10/28/16 Cilostazol (Cilostazol) 100 Mg Tab, 100 MG PO BID for INTERMITTENT CLAUDICATION , TAB 0 Refills 10/13/16 B-Complex Vitamins (Vitamin B Complex) 1 Tab, 1000 MCG PO DAILY 09/23/16 Topiramate (Topamax) 100 Mg Tab, 100 MG PO BID Y for FOR MIGRAINS, #60 TAB 0 Refills 09/08/16 Bupropion HCl ER 24 HR (Wellbutrin Xl 24 HR) 150 Mg Tab, 450 MG PO DAILY for Control Depression, TAB 0 Refills 09/06/16 Hydroxychloroquine (Plaquenil) 200 Mg Tab, 200 MG PO BID, #30 TAB 0 Refills Take with food 06/18/16 Simvastatin (Simvastatin) 20 Mg Tab, 20 MG PO DAILY for Cholesterol Management, #30 TAB 0 Refills 06/18/16 Metformin (Metformin) 500 Mg Tab, 500 MG PO DAILY for Blood Sugar Management, # 30 TAB 0 Refills With a meal 06/18/16 Coded Allergies: Iodinated Contrast- Oral and IV Dye (Unverified Allergy, Severe, SOB, 03/26) acetaminophen (Unverified Allergy, Severe, Itching, 03/26/17) benzocaine (Unverified Allergy, Severe, SHORTNESS OF BREATH - "CHANDU", ) codeine (Unverified Allergy, Severe, Itching, 03/26/17) fenofibrate (Unverified Allergy, Severe, Cough, 03/26/17) hydrocodone (Unverified Allergy, Severe, ITCH, 03/26/17) pt states oral injectable type causes anaphylaxis iodine (Unverified Allergy, Severe, SOB, 03/26/17) IV pt states anaphylaxis lidocaine (Unverified Allergy, Severe, Shortness of Breath, 03/26/17) lisinopril (Unverified Allergy, Severe, causes liver failure, 03/26/17) lovastatin (Unverified Allergy, Severe, LIVER FAILURE, 03/26/17) morphine (Unverified Allergy, Severe, ITCHY, 03/26/17) potassium iodide (Unverified Allergy, Severe, SOB, 03/26/17) IV pt states anaphylaxis povidone-iodine (Unverified Allergy, Severe, SOB, 03/26/17) IV pt states anaphylaxis procaine (Unverified Allergy, Severe, Anaphylaxis, 03/26/17) sodium iodide (Unverified Allergy, Severe, SOB, 03/26/17) IV pt states anaphylaxis sodium iodide (Unverified Allergy, Severe, SOB, 03/26/17) IV pt states anaphylaxis Review of Systems Constitutional: DENIES: Diaphoretic episodes, Fatigue, Fever, Weight gain, Weight loss, Chills, Dizziness, Change in appetite, Night Sweats Physical Exam Vitals/I&O Date Time Temp Pulse Resp B/P (MAP) Pulse Ox O2 Delivery O2 Flow Rate FiO2 09/04/17 15:17 98.1 106 18 141/94 (110) 95 Neuro: alert, oriented, no distress HEENT: NC/AT Neck: no JVD Heart: reg rate Lungs: clear Vascular: L LE incisions healed Laboratory Tests Test 09/04/17 09:50 White Blood Count 8.8 Red Blood Count 4.61 Hemoglobin 14.8 Hematocrit 42.5 Mean Corpuscular Volume 92.2 Mean Corpuscular Hemoglobin 32.1 Mean Corpuscular Hemoglobin Concent 34.8 Red Cell Distribution Width 14.1 Platelet Count 305 Mean Platelet Volume 8.6 Neutrophils (%) (Auto) 91.5 Lymphocytes (%) (Auto) 6.6 Monocytes (%) (Auto) 1.8 Eosinophils (%) (Auto) 0.0 Basophils (%) (Auto) 0.1 Neutrophils # (Auto) 8.1 Lymphocytes # (Auto) 0.6 Monocytes # (Auto) 0.2 Eosinophils # (Auto) 0.0 Basophils # (Auto) 0.0 CBC Comment DIFF FINAL Differential Comment Prothrombin Time 10.2 Prothromb Time International Ratio 1.0 Blood Urea Nitrogen 19 Creatinine 0.77 Random Glucose 115 Calcium Level 9.8 Sodium Level 141 Potassium Level 3.8 Chloride Level 109 Carbon Dioxide Level 22.4 Anion Gap 10 Estimat Glomerular Filtration Rate 76 Caprini VTE Risk Assessment Caprini VTE Risk Assessment: No/Low Risk (score <= 1) Caprini Risk Assessment Model Point Value = 1 Point Value = 2 Point Value = 3 Point Value = 5 Age 41-60 Minor surgery BMI > 25 kg/m2 Swollen legs Varicose veins or History of unexplained or recurrent spontaneous Oral contraceptives or hormone replacement Sepsis (< 1 month) Serious lung disease, including pneumonia (< 1 month) Abnormal pulmonary function Acute myocardial infarction Congestive heart failure (< 1 month) History of inflammatory bowel disease Medical patient at bed rest Age 61-74 Arthroscopic surgery Major open surgery (> 45 min) Laparoscopic surgery (> 45 min) Malignancy Confined to bed (> 72 hours) Immobilizing plaster cast Central venous access Age >= 75 History of VTE Family history of VTE Factor V Leiden Prothrombin [id number] Lupus anticoagulant Anticardiolipin antibodies Elevated serum homocysteine Heparin-induced thrombocytopenia Other congenital or acquired thrombophilia Stroke (< 1 month) Elective arthroplasty Hip, pelvis, or leg fracture Acute spinal cord injury (< 1 month) Prophylaxis Regimen Total Risk Factor Score Risk Level Prophylaxis Regimen 0-1 Low Early ambulation 2 Moderate Order ONE of the following: *Sequential Compression Device (SCD) *Heparin 5000 units SQ BID 3-4 Higher Order ONE of the following medications: *Heparin 5000 units SQ TID *Enoxaparin/Lovenox 40 mg SQ daily (WT < 150 kg, CrCl > 30 mL/min) *Enoxaparin/Lovenox 30 mg SQ daily (WT < 150 kg, CrCl > 10-29 mL/min) *Enoxaparin/Lovenox 30 mg SQ BID (WT < 150 kg, CrCl > 30 mL/min) AND/OR *Sequential Compression Device (SCD) 5 or more Highest Order ONE of the following medications: *Heparin 5000 units SQ TID (Preferred with Epidurals) *Enoxaparin/Lovenox 40 mg SQ daily (WT < 150 kg, CrCl > 30 mL/min) *Enoxaparin/Lovenox 30 mg SQ daily (WT < 150 kg, CrCl > 10-29 mL/min) *Enoxaparin/Lovenox 30 mg SQ BID (WT < 150 kg, CrCl > 30 mL/min) AND *Sequential Compression Device (SCD) Assessment and Plan Plan L LE failing bypass plan for L LE angiogram and potential intervention Discharge Planning today Jamari Mary MD Sep 04, 2017 17:16
[2017-09-04] MEDS ORDERED: diphenhydrAMINE HCL 50 MG/ML VIAL ONE (17:20)
--- NOTE | 2017-09-04 18:02 | HHI.PR ---
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
--- NOTE | 2017-09-04 18:08 | CATHPROC ---
[facility] HIS Report Study Information Study Number Admission Scheduled Start Study Start [id number] Sep 04 2017 2:11PM 09/04/2017 Sep 04 2017 5:04PM [place] Service Cath Endovascular Study Admit Source Facility Department Other [facility] - Building Maintenance Superintendent Physician and Clinical Staff Initial MD Mary, Jamari Pump Installation And Servicer Katie Quesada,GLENDY Recorder Joshua PIKE, Ranjeet Velazquez,RT(R) X-Ray Raphael Lane,RT(R) Procedures Performed Procedure Location (Site) Vessel Name EXTRUDER TENDER SFA (left) Femoral Art Wire insertion Fem Art (right) Femoral Art Equipment Time Dermatologist Description Size Mfg Part Number Used/Scraped [id number] 17:16 ANGIO-DYNAMICS OMNI FLUSH 65CM CATHETER FR 4 Used *[id number] BALLOON, LUTONIX 5 X 60 [id number] 17:47 BARD 5 X 60 Used 130CM DCB *[id number] INTRODUCER SET, 17:16 [employer]. FR 5 [id number] *[id number] Used MICROPUNCTURE, STIFFENED CXI-4.0-35-135- 17:43 COOK/ZAIRA CATHETER, FR4 CXI SUPPORT FR 4 Used P-NS-0 *[id number] KCFW-6.0-38-55- 17:42 COOK/ZAIRA SHEATH, FR6 RAABE 55CM FR 6 Used RB WIRE, GUIDE APPROACH ROUTER OPERATOR PIN [id number] 17:44 COOK/ZAIRA 300CM Used MICROWIRE *[id number] 18:05 DAIG/[employer]. [employer]INE [employer]ICAL ANGIOSEAL, FR6 VIP FR 6 Used *[id number] 17:16 [employer] IND[employer]RIES PACK, CCL CUSTOM * Used *[id number] 17:16 [employer] MEDICAL PRESSURE TUBING 48" 48" [id number] Used [id number] 17:41 [employer] MEDICAL WIRE, [place] 260CM .035 260CM Used *[id number] 17:16 NAMIC TUBING, HIGH PRESSURE 20" 20" Used *[id number] TUBING, PRESSURE INJECTION [id number] 17:16 NAMIC PACER 72" Used 72" *[id number] 17:16 NYCOMED OMNIPAQUE, 300 MG, 150ML 150ML [id number] Used 17:16 NYCOMED OMNIPAQUE, 300 MG, 50ML 50ML [id number] Used [id number] 17:16 M[employer]RELL MED[employer] BLANKET,WARM AIR CCL * Used *[id number] 17:16 TERUMO MEDICAL SHEATH, FR4 TERUMO (10CM) FR 4 Used *[id number] WIRE, ANGLED GLIDE .035 [id number] 17:16 TERUMO MEDICAL/ZAIRA 260CM Used 260CM *[id number] Equipment Model, Serial, Lot Number and Expiration Data Description Model Number Serial Number Lot Number Expiration Date ANGIOSEAL, FR6 VIP [id number] 06-05-2018 WIRE, GUIDE APPROACH ROUTER OPERATOR PIN [id number] 08-30-2021 MICROWIRE History: Allergies Allergy Reaction Contrast Media Lidocaine Iodine Hydrocodone benzocaine procaine STATINS Acetaminophen Codeine Labs Hgb (g/dl) Hct (%) WBC (l/cumm) Platelets (thousands) 11.60-17.00 35.00-51.00 4.00-11.00 150.00-450.00 14.8 42.5 8.8 305 Glucose (mg/dl) BUN (mg/dl) Creatinine (mg/dl) BUN:Creatinine (1:x) 74.00-106.00 7.00-18.00 0.50-1.30 10.00-20.00 115 19 0.8 23.8 Na (meq/l) K (meq/l) 136.00-145.00 3.50-5.10 141 3.8 INR (PTT:PT) 0.90-1.10 1 CPK-MB (ng/ML) 0.50-3.60 Not Drawn Medication Medication Total Dose (Bolus/Oral) Medication Total Dosage/Unit 1% XYLOCAINE 20 mL BENADRYL 50 mg FENTANYL 75 mcg HEPARIN 3000 units OXYGEN 2 l/min VERSED 4 mg Medications (Bolus/Oral) Medication Time Given Dosage/Unit Administered By Reason BENADRYL 09/04/2017 5:26:40 PM 50 mg Katie Quesada As per physicians verba l order 50 mg BENADRYL given in lab by Katie Quesada RN via Peripheral IV. Ordered by Jamari Mary. Reaso n: As per physicians verbal order. VERSED 09/04/2017 5:27:08 PM 2 mg Katie Quesada 2 mg VERSED given in lab by Katie Quesada RN via Peripheral IV. Ordered by Jamari Mary. 1% XYLOCAINE 09/04/2017 5:29:51 PM 20 mL Jamari Mary 20 mL 1% XYLOCAINE given in lab by Jamari Mary in Right Groin via Subcutaneous. Ordered by Jamari Mary. VERSED 09/04/2017 5:40:21 PM 1 mg Hesher, Katie 1 mg VERSED given in lab by Katie Quesada RN via Peripheral IV. Ordered by Jamari Mary. VERSED 09/04/2017 5:41:35 PM 1 mg Hesher, Katie 1 mg VERSED given in lab by Katie Quesada RN via Peripheral IV. Ordered by Jamari Mary. HEPARIN 09/04/2017 5:43:54 PM 3000 units Katie Quesada 3000 units HEPARIN given in lab by Katie Quesada RN via Peripheral IV. Ordered by Jamari Mary. FENTANYL 09/04/2017 5:44:00 PM 25 mcg Sangita, Katie 25 mcg FENTANYL given in lab by Katie Quesada RN via Peripheral IV. Ordered by Jamari Mary. OXYGEN 09/04/2017 5:44:58 PM 2 l/min Katie Quesada 2 l/min OXYGEN given in lab by Katie Quesada RN via Nasal. Ordered by Jamari Mary. FENTANYL 09/04/2017 5:49:15 PM 25 mcg Sangita, Katie 25 mcg FENTANYL given in lab by Katie Quesada RN via Peripheral IV. Ordered by Jamari Mary. FENTANYL 09/04/2017 5:53:27 PM 25 mcg Katie Quesada 25 mcg FENTANYL given in lab by Katie Quesada RN via Peripheral IV. Ordered by Jamari Mary. Initial Case Assessment Cardiovascular HR NIBP 100 154/90 Edema Present Skin color Skin None Normal Warm Dry Circulatory - Right Pulses Dorsalis Pedis Femoral 1 1 Scale (0,1,2,3,4,d) Circulatory - Left Pulses Dorsalis Pedis Femoral 1 1 Scale (0,1,2,3,4,d) Neurological State Oriented to time-place- Alert Moves all extremities person Respiration - General Respiration Rate SpO2 (%) (B/min) 15 98 Chronological Log Time Study Chronological Log 17:10:13 Patient arrived via Bed. 17:10:26 Patient Name, D.O.B, / Armband Verified By R.N. 17:11:34 Consent signed by the physician and the patient and verified by the Building Maintenance Superintendent staff. 17:11:40 Pre-op and post- op instructions given; patient acknowledges understanding of instructions. 17:12:23 MD arrived. 17:13:49 History and physical on the chart or being dictated. Assessment: Initial Case, BN=907 BPM, NZRJ=097/90 mmhg, Edema=None, Color=Normal, Skin = Warm, Dry Right Pulses: Chago Ped=1, Femoral=1 17:20:10 Left Pulses: Chago Ped=1, Femoral=1 Neurological: State=Alert, Ox3, MANN Respiration: Resp=15 B/min, SpO2=98 % Vitals capture started with the following parameters, Patient=Adult, Interval=5 min, Initial Pr fnhagx=698 mmHg, 17:20:32 Deflation Rate=5 mmHg, Cuff placed on Right Ankle 17:21:30 AC=143 bpm, ZHAZ=536/87 mmhg, ZjE5=897.0 %, Resp=15 B/min, Foreman=2 17:24:50 Patient has been NPO for More than 6Hrs. 17:25:33 A # 20 IV was noted in the Hand (left). Grade = 0 17:26:09 RC=344 bpm, ENEV=474/90 mmhg, SpO2=97.0 %, Resp=11 B/min, Foreman=2 17:26:29 Skin Breakdown- none reported 50 mg BENADRYL given in lab by Katie Quesada RN via Peripheral IV. Ordered by Jamari Mary. Reason: As per 17::40 physicians verbal order. 17:27:08 2 mg VERSED given in lab by Katie Quesada, GLENDY via Peripheral IV. Ordered by Jamari Mary . 17:27:31 Bilateral groins prepped with 2% chlorhexidine, and draped after a 3 min. waiting time. Time Out. Correct patient, correct procedure, correct physician, power injector loaded, or not loaded with contrast with 17:29:28 surgical team present. Time Out Concurred by MD and individual staff in procedure. 17:29:51 20 mL 1% XYLOCAINE given in lab by Jamari Mary in Right Groin via Subcutaneous. Ordered by Jamari Mary. 17:30:13 Case Start 17:30:40 Access site was Right Femoral Artery. A INTRODUCER SET, MICROPUNCTURE, STIFFENED FR 5 was advanced into the Fem Art (right) using the Modified 17:30:47 Seldinger technique. 17:31:10 HR=98 bpm, VLIE=663/85 mmhg, SpO2=99.0 %, Resp=17 B/min, Foreman=2 17:32:41 A WIRE, ANGLED GLIDE .035 260CM 260CM was inserted via Fem Art (right). A SHEATH, FR4 TERUMO (10CM) FR 4 was exchanged in the Fem Art (right). This was necessary in or ana to 17:32:51 accomodate a larger catheter. 17:33:22 A OMNI FLUSH 65CM CATHETER FR 4 was advanced over a wire. contrast was used for injections. 17:33:56 Wire removed 17:36:07 FS=057 bpm, QSRB=640/88 mmhg, SpO2=98.0 %, Resp=17 B/min, Foreman=2 17:36:47 Through a OMNI FLUSH 65CM CATHETER FR 4, The Femoral Run-off was injected with 4 cc's per s econd. 17:38:05 Through a OMNI FLUSH 65CM CATHETER FR 4, The Femoral Run-off was injected with 4 cc's per s econd. 17:38:43 Through a OMNI FLUSH 65CM CATHETER FR 4, The Femoral Run-off was injected with 4 cc's per s econd. 17:40:21 1 mg VERSED given in lab by Katie Quesada RN via Peripheral IV. Ordered by Jamari Mary . 17:40:27 A WIRE, [place] 260CM .035 260CM was inserted via Fem Art (right). 17:41:08 HR=98 bpm, DKTY=626/86 mmhg, SpO2=99.0 %, Resp=16 B/min, Foreman=2 A SHEATH, FR6 RAABE 55CM FR 6 was exchanged in the Fem Art (right). This was necessary in order to accomodate 17:41:29 a larger catheter. 17:41:35 1 mg VERSED given in lab by Katie Quesada RN via Peripheral IV. Ordered by Jamari Mary . 17:42:59 A CATHETER, FR4 CXI SUPPORT FR 4 was advanced over a wire. contrast was used for injections . 17:43:49 The previous wire was exchanged for a WIRE, ANGLED GLIDE .035 260CM 260CM. 17:43:54 3000 units HEPARIN given in lab by Katie Quesada RN via Peripheral IV. Ordered by Jamari Mary. 17:44:00 25 mcg FENTANYL given in lab by Katie Quesada RN via Peripheral IV. Ordered by Jennie Mary. 17:44:58 2 l/min OXYGEN given in lab by Katie Quesada RN via Nasal. Ordered by Jamari Mary. 17:45:25 The previous wire was exchanged for a WIRE, [place] 260CM .035 260CM. 17:46:09 HR=96 bpm, WETY=233/79 mmhg, SpO2=93.0 %, Resp=18 B/min, Foreman=2 A BALLOON, LUTONIX 5 X 60 130CM DCB 5 X 60 was inserted over WIRE, [place] 260CM .035 260CM via t he SFA 17:48:26 (left). 17:49:15 25 mcg FENTANYL given in lab by Katie Quesada RN via Peripheral IV. Ordered by Jennie Mary. 17:51:10 HR=93 bpm, FVVX=589/75 mmhg, SpO2=93.0 %, Resp=15 B/min, Foreman=2 17:51:40 In the SFA (left) a BALLOON, LUTONIX 5 X 60 130CM DCB 5 X 60 was inflated to 6 atms for 180 seconds. 17:53:26 Post angioplasty 17:53:27 25 mcg FENTANYL given in lab by Katie Quesada RN via Peripheral IV. Ordered by Jennie Mary. 17:55:00 Catheter(s) removed without difficulty 17:56:05 HR=93 bpm, FNEF=894/90 mmhg, SpO2=99.0 %, Resp=20 B/min, Foreman=2 17:59:27 Case End 17:59:53 No case complications noted. 18:00:12 Sheath removed 18:00:21 closure device placement in the Fem Art (right) 18:01:47 HR=96 bpm, EKYH=656/90 mmhg, HlY7=800.0 %, Resp=15 B/min, Foreman=2 18:05:48 Bedside Report will be given. 18:05:56 Patient moved to stretcher 18:06:13 HR=94 bpm, SNON=747/90 mmhg, SpO2=99.0 %, Resp=14 B/min, Foreman=2 18:07:02 Vitals capture stopped. End Study - Contrast Media Used In Study Contrast Total Opened (mL) Total Used (mL) Total Wasted (mL) Omnipaque 50 50 0 End Study - Maximum Contrast Load Max Contrast Load (mL) 473.0 End Study - Radiation Exposure Fluoro Time (minutes) 4.3 End Study - Patient Disposition Complications Transferred To No Building Maintenance Superintendent Holding
[2017-09-04] MEDS ORDERED: CLOPIDOGREL 75 MG TAB PO ONE (18:15)
[2017-09-04] MEDS ORDERED: IOHEXOL 350 MG/ML 50 ML BTL (for Cath Lab) OTHER ONE (20:25)
[2017-09-04] MEDS ORDERED: TOPIRAMATE 100 MG TAB PO PRN (20:30)
[2017-09-04] MEDS ORDERED: BISACODYL 10 MG SUPP RECTAL PRN (20:30)
[2017-09-04] MEDS ORDERED: ALPRAZolam 0.25 MG TAB PO PRN (20:30)
[2017-09-04] MEDS ORDERED: MAGNESIUM HYDROXIDE SUSP 30 ML CUP PO PRN (20:30)
[2017-09-04] MEDS ORDERED: SENNOSIDES 8.6 MG TAB PO PRN (20:30)
[2017-09-04] MEDS ORDERED: LACTULOSE SYRUP 20 GM/30 ML CUP PO PRN (20:30)
[2017-09-04 21:00] VITALS: BP 126/70; PULSE 100; RESP 16; TEMP 98.6; O2SAT 96
[2017-09-04] MEDS ORDERED: HYDROXYCHLOROQUINE SULFATE 200 MG TAB PO SCH (21:00)
[2017-09-04] MEDS ORDERED: DOCUSATE SODIUM 50 MG/SENNA 8.6 MG TAB PO SCH (21:00)
[2017-09-04 22:00] VITALS: PULSE 104
[2017-09-04] MEDS: DOCUSATE SODIUM 100 MG CAP PO SCH (22:38)
[2017-09-04 23:00] VITALS: BP 113/54; PULSE 102; PULSE 104; RESP 16; TEMP 98.1; O2SAT 96
[2017-09-04] MEDS ORDERED: ENOXAPARIN SODIUM 30 MG/0.3 ML SYRINGE SQ SCH (23:00)
[2017-09-05] VITALS (9 sets, daily range): BP systolic 113–141; BP diastolic 63–81; PULSE 77–100; RESP 16–18; TEMP 97.4–98.2; O2SAT 96–99
[2017-09-05] MEDS ORDERED: LEVOTHYROXINE SODIUM 112 MCG TAB PO SCH (06:00)
[2017-09-05] MEDS ORDERED: LEVOTHYROXINE SODIUM 25 MCG TAB PO SCH (06:00)
[2017-09-05] MEDS: DOCUSATE SODIUM 100 MG CAP PO SCH (06:07)
--- NOTE | 2017-09-05 07:16 | PD.VS.PN ---
Subjective Subjective/Hospital Course c/o back pain that is typical and no change from normal legs ok no further bleeding from groin Objective Vitals/I&O Date Time Temp Pulse Resp B/P (MAP) Pulse Ox O2 Delivery O2 Flow Rate FiO2 09/05/17 06:00 91 09/05/17 05:00 88 09/05/17 04:00 90 09/05/17 03:00 86 09/05/17 03:00 98.2 86 16 113/63 (80) 96 09/05/17 02:00 90 09/05/17 01:00 87 09/05/17 00:00 100 09/04/17 23:00 98.1 102 16 113/54 (73) 96 09/04/17 23:00 104 09/04/17 22:00 104 09/04/17 21:00 100 09/04/17 21:00 98.6 100 16 126/70 (88) 96 09/04/17 18:00 97 Room Air 09/04/17 15:17 98.1 106 18 141/94 (110) 95 09/05/17 09/05/17 09/05/17 07:00 15:00 23:00 Intake Total 720 ml Output Total 600 ml Balance 120 ml Physical Exam R groin soft, no erythema palpable femoral pulse Laboratory Laboratory Tests Test 09/04/17 09:50 White Blood Count 8.8 Red Blood Count 4.61 Hemoglobin 14.8 Hematocrit 42.5 Mean Corpuscular Volume 92.2 Mean Corpuscular Hemoglobin 32.1 Mean Corpuscular Hemoglobin Concent 34.8 Red Cell Distribution Width 14.1 Platelet Count 305 Mean Platelet Volume 8.6 Neutrophils (%) (Auto) 91.5 Lymphocytes (%) (Auto) 6.6 Monocytes (%) (Auto) 1.8 Eosinophils (%) (Auto) 0.0 Basophils (%) (Auto) 0.1 Neutrophils # (Auto) 8.1 Lymphocytes # (Auto) 0.6 Monocytes # (Auto) 0.2 Eosinophils # (Auto) 0.0 Basophils # (Auto) 0.0 CBC Comment DIFF FINAL Differential Comment Prothrombin Time 10.2 Prothromb Time International Ratio 1.0 Blood Urea Nitrogen 19 Creatinine 0.77 Random Glucose 115 Calcium Level 9.8 Sodium Level 141 Potassium Level 3.8 Chloride Level 109 Carbon Dioxide Level 22.4 Anion Gap 10 Estimat Glomerular Filtration Rate 76 Assessment and Plan Plan POD#1 s/p L LE BLOOD COLLECTOR of vein bypass D/C this morning. Discharge Planning today Jamari Mary MD Sep 05, 2017 07:16
--- NOTE | 2017-09-05 07:18 | PD.VS.DC ---
Discharge Summary Admission Date: Sep 04, 2017 at 20:24 Discharge Date: Sep 05, 2017 Admission Diagnosis: (1) PAD (peripheral artery disease) Discharge Diagnosis: (1) PAD (peripheral artery disease) ICD Codes: I73.9 - Peripheral vascular disease, unspecified Status: Chronic Brief History from admission 62 yo female with PAD and L LE bypass, now with asymptomatic vein graft stenosis on surveillance duplex Procedure(s): L LE vein graft DIRECTOR OF WORKFORCE DEVELOPMENT (DCB) Significant Findings Laboratory Tests Test 09/04/17 09:50 Neutrophils (%) (Auto) 91.5 % (16.0-70.0) Lymphocytes (%) (Auto) 6.6 % (9.0-44.0) Neutrophils # (Auto) 8.1 TH/MM3 (1.8-7.7) Lymphocytes # (Auto) 0.6 TH/MM3 (1.0-4.8) Blood Urea Nitrogen 19 MG/DL (7-18) Random Glucose 115 MG/DL (74-106) Chloride Level 109 MEQ/L (98-107) Estimat Glomerular Filtration Rate 76 ML/MIN (>89) Hospital Course: Pt underwent L LE angiogram and DIRECTOR OF WORKFORCE DEVELOPMENT of vein graft stenosis detected on surveillance U/S. Excellent technical result with paclitaxel-coated ballon. Post op some bleeding from groin controlled with pressure and kept overnight for observation. No problems overnight and ready for d/c POD#1. Discharge Condition: Good Discharge Disposition: Discharge Home Any questions or concerns: Call [facility] at [facility] [phone] Jamari Mary MD Sep 05, 2017 07:18
[2017-09-05] MEDS ORDERED: BACLOFEN 20 MG TAB PO SCH (09:00)
[2017-09-05] MEDS ORDERED: FOLIC ACID 1 MG TAB PO SCH (09:00)
[2017-09-05] MEDS ORDERED: MULTIVITAMIN TAB PO SCH (09:00)
[2017-09-05] MEDS ORDERED: HYDROXYCHLOROQUINE SULFATE 200 MG TAB PO SCH (09:00)
[2017-09-05] MEDS ORDERED: buPROPion HCL 100 MG SUSTAINED RELEASE TAB PO SCH (09:00)
[2017-09-05] MEDS ORDERED: metFORMIN HCL 500 MG TAB PO SCH ×2 (09:00)
[2017-09-05] MEDS ORDERED: NON-FORMULARY DRUG (Coenzyme Q10 (Ubidecarenone) (Coq-10 Tr) 1 CAP) PO SCH (09:00)
[2017-09-05] MEDS ORDERED: CLOPIDOGREL 75 MG TAB PO SCH (09:00)
[2017-09-05] MEDS ORDERED: ASPIRIN EC 325 MG TABEC PO SCH (09:00)
[2017-09-05] MEDS ORDERED: PRAVASTATIN SOD 40 MG TAB PO SCH (09:00)
[2017-09-05] MEDS ORDERED: SIMVASTATIN 20 MG PO SCH (09:00)
[2017-09-05] MEDS ORDERED: VITAMIN B COMPLEX/VIT C TAB PO SCH (09:00)
[2017-09-05] MEDS ORDERED: VALGANCICLOVIR PO SCH (09:00)
[2017-09-05] MEDS ORDERED: PANTOPRAZOLE SOD 40 MG DELAYED RELEASE TAB PO SCH (09:00)
[2017-09-05] MEDS ORDERED: CHOLECALCIFEROL (VIT D3) 5000 UNIT CAP PO SCH (09:00)
[2017-09-05] MEDS ORDERED: ASPIRIN 81 MG CHEW TAB PO SCH (09:00)
--- NOTE | 2017-09-05 09:15 | MP ---
cc: Jamari Mary MD DATE OF OPERATION: 09/04/2017 PREOPERATIVE DIAGNOSIS: Failing left lower extremity bypass graft. POSTOPERATIVE DIAGNOSIS: Failing left lower extremity bypass graft. PROCEDURE: 1. Left lower extremity angiogram. 2. Left proximal bypass angioplasty with a 5 mm drug-coated balloon. 3. Right common femoral artery Angio-Seal. ATTENDING SURGEON: Jamari Mary MD ANESTHESIA: Local with sedation. INDICATION: Ms. Sanchez is a 62-year-old female with peripheral arterial occlusive disease, who underwent a redo left lower extremity bypass approximately a year ago, and on routine graft scan in the clinic, it was suggested she had a proximal stenosis. She was taken to the operating room for angiographic evaluation and treatment. There is no prior catheter-based imaging available for my review since the abnormal ultrasound. DESCRIPTION OF PROCEDURE: Informed consent obtained from patient. She was taken to the operating room and placed supine on the operating room table, and appropriate timeout was taken to ensure the patient's identity, operative site and planned procedure. Administration of antibiotics was not necessary as this was a clean procedure without planned implantation of foreign objects. Everyone in the room agreed with timeout. We proceeded. Her right groin was prepped and draped and locally anesthetized with 1% lidocaine. A 21-gauge Micropuncture needle was used to access to the right common femoral artery. This was exchanged using Seldinger technique for a Micropuncture sheath, through which a 0.035 Glidewire was introduced. The Micropuncture sheath was exchanged for a 4 Stateless sheath and a VCF catheter was placed over the wire and through the sheath, navigated down to the left common femoral artery, and left lower extremity arteriogram was obtained. The patient was systemically heparinized with 3000 units of IV heparin. A 0.035 Reddy wire was introduced through the VCF catheter, and VCF catheter and 4 Stateless sheath were removed, and a 6 Stateless 55 cm Jeremy sheath was introduced. A CXI catheter was placed over the wire and through the sheath, and a DUCK BILL OPERATOR wire was placed through the CXI catheter and this was used to navigate down to the mid graft. The CXI catheter was advanced over this, and an angiogram confirmed we were indeed in the graft. The Reddy wire was reintroduced. The CXI catheter was removed, and the proximal stenosis was angioplastied with a 5 x 60 drug-coated balloon. The completion angiogram showed excellent result without any recoil or extravasation. The wire, catheter and sheath were removed, and the groin was closed with an Angio-Seal. There were no complications. I was present and scrubbed and performed and the entire procedure. DESCRIPTION OF IMAGES: The patient has patent left common femoral artery and 2 patent profundas. The [place] SFA is occluded. There are stents within it. The femoral to below-knee popliteal artery bypass, which appears to be a vein, has a high-grade proximal stenosis, but the outflow is excellent without any anastomotic stenoses and 3-vessel runoff to the foot. After angioplasty of the proximal stenosis, there is resolution of the stenosis without any dissection or flow limitation or extravasation. MD ZAID Puente/ARMEN , 05:06 AM , 09:13 AM
== END 2017-09-05 10:23 | disposition home or self-care (01) ==
LOC: HDOC 14:11 → HDIC 14:13 → HDOC 20:23 → HDIC 20:24 → HCIS 21:20
PROVIDERS: ADMIT Surgery; ATTEND Surgery
DX: T82.898A Other specified complication of vascular prosthetic devices, implants and grafts, initial encounter (principal); E11.51 Type 2 diabetes mellitus with diabetic peripheral angiopathy without gangrene; I10 Essential (primary) hypertension; E03.9 Hypothyroidism, unspecified; Z85.828 Personal history of other malignant neoplasm of skin
CPT/HCPCS: 37224; 75625; 75710; 80048; 85025; 85610; 96372; C1751; C1760; C1769; C1893; C2623; G0269; G0378; J1200; J1650; J2250; J2930; J3010; J7070; Q9967

== ENCOUNTER 2018-06-08 12:30 | Inpatient (IN) ==
[2018-06-18] MEDS ORDERED: Chlorhexidine Gluconate 2% 1 Pack (2 Cloths) TOPICAL ONE (06:45)
[2018-06-18] MEDS ORDERED: Metoprolol Tartrate 25 MG Tablet PO ONE (06:45)
[2018-06-18] MEDS ORDERED: Sodium Chlor 0.9% Inj 500 ML IV.CONT ONE (06:45)
[2018-06-18] MEDS ORDERED: Heparin 10,000 UNITS/10 ML Vial (for IV use) ONE (06:56)
[2018-06-18] MEDS ORDERED: Protamine Sulfate Inj 50 MG/5 ML Vial ONE (06:56)
--- NOTE | 2018-06-18 06:56 | P.HPVS ---
History of Present Illness Chief Complaint: PAD , B LE History of Present Illness: 63 yo female with PAD s/p L groin reconstruction and bypass September 2016 with progressive BANQUET COORDINATOR, PFA and proximal graft stenosis. Also complains c/o R LE claudication. Presents for L groin reconstruction and B LE angiogram. No changes in health that would preclude OR - Inpatient Certification If this patient has been admitted as an Inpatient: I certify that the inpatient services were ordered in accordance with Medicare regulations governing the order. This includes certification that hospital inpatient services are reasonable and necessary and in the case of services not specified as inpatient-only under 42 CFR 419.22(n), that they are appropriately provided as inpatient services in accordance to with the 2-midnight benchmark under 43 CFR 412.3(e) Estimated Total Length of Stay (Days): 4 Plans for Post Hospital Care: Home Review of Systems All other systems reviewed negative except as stated in HPI PMFSH - History History Provided By: Patient - Medical History Medical History: Medical History (Last Reviewed 06/18/18 @ 06:55 by Jamari Mary MD) Brain aneurysm CVA (cerebral vascular accident) Diabetes Femoral-popliteal bypass graft occlusion, left Foreign accent syndrome GERD (gastroesophageal reflux disease) History of COPD Hx of hysterectomy Hyperlipemia Hypertension Hypothyroidism Lupus Myocardial infarction PVD (peripheral vascular disease) Rheumatoid aortitis Wears dentures Wears glasses - Surgical History Surgical History: Surgical History (Last Reviewed 06/18/18 @ 06:55 by Jamari Mary MD) History of bilateral breast biopsy History of operative procedure on lumbosacral spinal structure Hx of appendectomy Hx of cholecystectomy Hx of exploratory laparotomy Hx of foot surgery - Tobacco History Smoking Status: Former smoker - Alcohol History How Often Do You Have a Drink Containing Alcohol: 2 to 4 times a month Medications and Allergies Active Medications: Active Medications Lactated Ringer's (Lr 1000 Ml Inj) 1,000 mls @ 30 mls/hr IV.CONT .Q24H ONE Stop: 06/19/18 06:44 Sodium Chloride (Ns Inj) 500 mls @ 30 mls/hr IV.CONT .[id number] ONE Stop: 06/18/18 23:24 Allergies Allergy/AdvReac Type Severity Reaction Status Date / Time acetaminophen Allergy Severe Itching Verified 06/03/18 14:10 codeine Allergy Severe Itching Verified 06/03/18 14:10 fenofibrate Allergy Severe Cough, Verified 06/03/18 14:10 LIVER FAILURE hydrocodone Allergy Severe ITCH Verified 06/03/18 14:10 Iodinated Contrast- Oral and Allergy Severe SOB Verified 06/03/18 14:10 IV Dye iodine Allergy Severe SOB Verified 06/03/18 14:10 lisinopril Allergy Severe Cough Verified 06/03/18 14:10 lovastatin Allergy Severe LIVER Verified 06/03/18 14:10 FAILURE morphine Allergy Severe ITCHY Verified 06/03/18 14:10 potassium iodide Allergy Severe SOB Verified 05/21/18 11:31 povidone-iodine Allergy Severe SOB Verified 05/21/18 11:31 sodium iodide Allergy Severe SOB Verified 05/21/18 11:31 sodium iodide Allergy Severe SOB Verified 05/21/18 11:31 Home Medications Medication Instructions Recorded Confirmed Type aspirin 325 mg PO DAILY 05/21/18 06/03/18 History baclofen 20 mg PO TID PRN 05/21/18 06/03/18 History bupropion HCl 3 tab PO DAILY 05/21/18 06/03/18 History coenzyme Q10 100 mg PO DAILY 05/21/18 06/03/18 History docusate sodium [Colace] 300 mg PO HS 05/21/18 06/03/18 History folic acid 0.4 mg PO DAILY 05/21/18 06/03/18 History hydroxychloroquine 200 mg PO BID 05/21/18 06/03/18 History levothyroxine 137 mcg PO DAILY 05/21/18 06/03/18 History metformin 500 mg PO HS 05/21/18 06/03/18 History simvastatin 20 mg PO QPM 05/21/18 06/03/18 History topiramate [Topamax] 100 mg PO BID 05/21/18 06/03/18 History cholecalciferol (vitamin D3) 2,000 unit PO EVERY OTHER DAY 06/03/18 06/03/18 History [Vitamin D3] sznfm-jphii-3-[id number]-poz-sjujcd 1 tab PO DAILY 06/03/18 06/03/18 History [MegaKrill] multivit with min-folic acid 1 tab PO DAILY 06/03/18 06/03/18 History [Adult One Daily Multivitamin] oxycodone-acetaminophen 1 tab PO Q4-6H PRN 06/03/18 06/03/18 History pantoprazole 40 mg PO DAILY 06/03/18 06/03/18 History valacyclovir 1 tab PO DAILY PRN 06/03/18 06/03/18 History valacyclovir 500 mg PO DAILY 06/03/18 06/03/18 History Physical Exam Neuro: alert, oriented, no distress HEENT: NC/AT Neck: no JVD Heart: reg rate, no M Lungs: clear Vascular: L groin incision healed Caprini VTE Risk Assessment Caprini VTE Risk Assessment: No/Low Risk (score <= 1) (intraop heparin) Caprini Risk Assessment Model: Point Value = 1 Point Value = 2 Point Value = 3 Point Value = 5 Age 41-60 Minor surgery BMI > 25 kg/m2 Swollen legs Varicose veins or History of unexplained or recurrent spontaneous Oral contraceptives or hormone replacement Sepsis (< 1 month) Serious lung disease, including pneumonia (< 1 month) Abnormal pulmonary function Acute myocardial infarction Congestive heart failure (< 1 month) History of inflammatory bowel disease Medical patient at bed rest Age 61-74 Arthroscopic surgery Major open surgery (> 45 min) Laparoscopic surgery (> 45 min) Malignancy Confined to bed (> 72 hours) Immobilizing plaster cast Central venous access Age >= 75 History of VTE Family history of VTE Factor V Leiden Prothrombin [id number] Lupus anticoagulant Anticardiolipin antibodies Elevated serum homocysteine Heparin-induced thrombocytopenia Other congenital or acquired thrombophilia Stroke (< 1 month) Elective arthroplasty Hip, pelvis, or leg fracture Acute spinal cord injury (< 1 month) Prophylaxis Regimen: Total Risk Factor Score Risk Level Prophylaxis Regimen 0-1 Low Early ambulation 2 Moderate Order ONE of the following: *Sequential Compression Device (SCD) *Heparin 5000 units SQ BID 3-4 Higher Order ONE of the following medications: *Heparin 5000 units SQ TID *Enoxaparin/Lovenox 40 mg SQ daily (WT < 150 kg, CrCl > 30 mL/min) *Enoxaparin/Lovenox 30 mg SQ daily (WT < 150 kg, CrCl > 10-29 mL/min) *Enoxaparin/Lovenox 30 mg SQ BID (WT < 150 kg, CrCl > 30 mL/min) AND/OR *Sequential Compression Device (SCD) 5 or more Highest Order ONE of the following medications: *Heparin 5000 units SQ TID (Preferred with Epidurals) *Enoxaparin/Lovenox 40 mg SQ daily (WT < 150 kg, CrCl > 30 mL/min) *Enoxaparin/Lovenox 30 mg SQ daily (WT < 150 kg, CrCl > 10-29 mL/min) *Enoxaparin/Lovenox 30 mg SQ BID (WT < 150 kg, CrCl > 30 mL/min) AND *Sequential Compression Device (SCD) Assessment and Plan - Assessment (1) PAD (peripheral artery disease) Code(s): I73.9 - Peripheral vascular disease, unspecified Status: Acute - Plan LEFT groin reconstruction and B LE angiogram Consents obtained. All questions answered. Operative site marked. to OR
[2018-06-18] MEDS ORDERED: Bupivacaine PF 0.5% Inj 10 ML Vial ONE (06:57)
[2018-06-18] MEDS ORDERED: Thrombin Topical 20,000 UNIT Spray Kit TOPICAL ONE (06:57)
[2018-06-18] MEDS ORDERED: Heparin/NS PF Inj 500 ML ONE (06:57)
[2018-06-18] MEDS ORDERED: MethylPREDNISolone Sod Succinate Inj 125 MG/2 ML Vial ONE (07:25)
[2018-06-18] MEDS ORDERED: ceFAZolin 1 GM Premix Inj 2 GM/100 ML PIGGYBACK IV.SIG ONE (07:29)
[2018-06-18] MEDS ORDERED: Famotidine PF Inj 20 MG/2 ML Vial ONE (08:22)
[2018-06-18] MEDS ORDERED: HYDROmorphone PF Inj 1 MG/ML Ampul ONE (09:26)
[2018-06-18] MEDS ORDERED: Bisacodyl 10 MG Supp RECTAL PRN (12:34)
--- NOTE | 2018-06-18 12:34 | P.OP ---
- Preoperative Diagnosis (1) PAD (peripheral artery disease) - Postoperative Diagnosis (1) PAD (peripheral artery disease) Date of procedure: 06/18/18 Procedure: 1. profunda endarterectomy and patch angioplasty 2. Jump graft from SERVICES ACCOUNT MANAGER to prior bypass with 6mm Dacron 3. Reimplantation of second profunda Implants: 1. Bovine pericardial patch to SERVICES ACCOUNT MANAGER 2. 6mm Dacron Surgeon: Jamari Mary MD Floor Specialist: Jamari La Estimated blood loss (mL): 300 IV fluids (mL): 2,100 Urine output (mL): 955 Pathology: none sent Operation and Findings: extensive scar tissue. successful endarterectomy and patch down main profunda, jump to prior bypass reimplantation of accessory large profunda + DP signal at end of case
[2018-06-18] MEDS ORDERED: fentaNYL Citrate Inj 100 MCG/2 ML Ampul ONE (13:18)
[2018-06-18] MEDS ORDERED: *HYDROmorphone PF Inj 1 MG/ML Ampul PERIprocedural Use ONLY ONE ×2 (13:43→14:05)
--- NOTE | 2018-06-18 16:09 | MP ---
cc: Jamari Mary MD DATE OF OPERATION: 06/18/2018 PREOPERATIVE DIAGNOSIS: Failing distal bypass. POSTOPERATIVE DIAGNOSIS: Failing distal bypass. PROCEDURE PERFORMED: 1. Ileal profunda endarterectomy and patch angioplasty. 2. Bypass revision with a jump graft from the common femoral artery to the previous vein graft with 6 mm Dacron. 3. Reimplantation of accessory profunda branch, thereby creating an ileal profunda bypass. DESCRIPTION SURGEON: Jamari Mary MD. TELEPHOTO INSTALLER SURGEON: Jamari La ANESTHESIA: General. INDICATIONS: Ms. Sanchez is a 63-year-old lady who has 2 previous left leg bypasses. She has failing bypasses by duplex and was taken to the operating room for groin reconstruction based on angiogram. DESCRIPTION OF PROCEDURE: Informed consent was obtained from the patient. She was taken to the operating room and placed supine on the operating table. An appropriate timeout was taken to ensure the patient's identity, then the operative site and planned procedure. The administration of 2 grams of Ancef was initiated prior to skin incision and will be discontinued after a single preoperative dose. Everyone in the room agreed with timeout and we proceeded. She was prepped from her nipples to toes. Vertical incision made in the left groin and carried down through subcutaneous tissue with electrocautery. The scar tissue was encountered in the common femoral arteries; the previous patch was encountered. Main profunda branch were encountered, as well as the old prosthetic bypass, which was occluded and a vein graft bypass which was encircled with a vessel loop. The patient was systemically heparinized with heparin and ACT was confirmed to be greater than 250. ____ control was obtained of the proximal common femoral artery, both profundus and the vein graft. The proximal vein graft was excised and arteriotomy was made, going from the common femoral artery to the main profunda branch. The artery was endarterectomized and a 1 x 6 pericardial patch was brought up on the field and sewn as a patch. Clamps were released and the patch was noted to be hemostatic. Clamps were reapplied and the patch was incised with an 11-blade, extended with [place] scissors; 6 mm Dacron was brought on the field, spatulated and sewn end-to-side to the patch and end to end to the vein graft with running 5-0 Prolene suture. At the completion, it was flushed and noted to be hemostatic. The accessory profunda was then transected and the stenotic origin was oversewn off the side of the common femoral artery with 5-0 Prolene suture and then it was reimplanted into jump graft by placing clamps proximal and distal over the jump graft with Dacron. The longitudinal Dacron graftotomy was ____ with [place] scissors and the profunda was reimplanted with running 6-0 Prolene suture. The ____ was flushed and noted to be hemostatic. There were Doppler signals in both profunda branches with a palpable pulse in the bypass and a Doppler signal in the foot. The heparin reversed with protamine. The wound was irrigated; made hemostatic and closed with 2-0 Polysorb, 3-0 Polysorb and 4-0 Monocryl. The sponge and needle counts were correct at the end of the case. I was present and scrubbed for the entire procedure. MD ZAID Puente/ruel , 03:31 PM , 03:41 PM NIKOLAS
[2018-06-18] MEDS: Senna/Docusate Sodium 8.6/50 MG Tablet PO SCH (20:54)
[2018-06-18] MEDS ORDERED: Topiramate 100 MG Tablet PO ONE (21:00)
[2018-06-18] MEDS: Hydroxychloroquine 200 MG Tablet PO SCH (21:28)
[2018-06-18] MEDS: Morphine Sulfate Inj 2 MG/ML Vial IV.PUSH PRN (22:15)
[2018-06-19] MEDS: Morphine Sulfate Inj 2 MG/ML Vial IV.PUSH PRN ×4 (04:15→20:03)
[2018-06-19 05:01] LABS: Hematocrit 36.6 % (35.0-46.0); Hemoglobin 12.3 gm/dL (11.6-15.3); Mean Corpuscular HGB Conc 33.5 % (32.0-36.0); Mean Corpuscular Hemoglobin 32.4 pg (27.0-34.0); Mean Corpuscular Volume 96.8 fL (80.0-100.0); Mean Platelet Volume 8.5 fL (7.0-11.0); Platelet Count 220 th/mm3 (150-450); Red Blood Count 3.79 mil/mm3 (4.00-5.30); Red Cell Distribution Width 14.1 % (11.6-17.2); White Blood Count 13.2 th/mm3 (4.0-11.0)
[2018-06-19 05:23] LABS: Calcium 8.4 mg/dL (8.5-10.1); Carbon Dioxide 26.4 meq/L (21.0-32.0); Potassium 3.9 meq/L (3.5-5.1)
[2018-06-19] MEDS: Levothyroxine 112 MCG Tablet PO SCH (06:15)
--- NOTE | 2018-06-19 07:33 | P.PNVS ---
Subjective Post Op Day #: 1 Procedure: LEFT groin reconstruction Subjective/Hospital Course: c/o back pain (chronic) and L groin pain foot ok Objective Vital Signs / I&O: Vital Signs 06/18/18 13:05 06/18/18 13:15 06/18/18 13:30 Temperature 97.9 F Pulse Rate 96 H 93 H 99 H Respiratory Rate 11 L 11 L 22 Blood Pressure 164/76 H 164/76 H 138/57 L Pulse Oximetry 100 100 100 06/18/18 13:45 06/18/18 14:45 06/18/18 15:00 Temperature 98.0 F Pulse Rate 96 H 96 H 95 H Respiratory Rate 20 13 20 Blood Pressure 143/74 H 111/58 L 127/62 Pulse Oximetry 100 100 99 06/18/18 15:30 06/18/18 16:00 06/18/18 16:03 Temperature 98.7 F Pulse Rate 95 H Respiratory Rate 14 17 Blood Pressure 110/57 L Pulse Oximetry 97 97 06/18/18 19:00 06/18/18 20:00 06/18/18 23:00 Temperature 98.7 F Pulse Rate 91 H 89 89 Respiratory Rate 16 Blood Pressure 140/68 Pulse Oximetry 95 06/19/18 00:00 06/19/18 03:00 06/19/18 04:00 Temperature 98.9 F 98.8 F Pulse Rate 91 H 78 78 Respiratory Rate 16 16 Blood Pressure 104/53 L 121/63 Pulse Oximetry 97 95 Intake & Output 06/18/18 06/19/18 06/19/18 18:59 06:59 18:59 Intake Total 2670 / 2670 720 / 720 Output Total 1555 / 1555 1650 / 1650 Balance 1115 / 1115 -930 / -930 Weight 76.8 kg 78 kg Intake: IV 100 / 100 Ancef 1 GM Premix Inj 2 gm In 100 / 100 100 ml @ 0 mls/hr IV.SIG .STK- MED ONE Rx#:[id number] Oral 120 / 120 720 / 720 Anesthesia Amount 2450 / 2450 Output: Estimated Blood Loss 300 / 300 Urine Amount (Catheter) 1255 / 1255 1650 / 1650 Indwelling Temp Sensing 1255 / 1255 1650 / 1650 Catheter Other: Weight On Admission 76.8 kg Exam: resting comfortably groin soft, Prevena in place Pulses: strong Doppler signals L foot Laboratory Results - last 24 hr 06/18/18 06/18/18 06/19/18 07:05 13:29 04:03 WBC 13.2 H RBC 3.79 L Hgb 12.3 Hct 36.6 MCV 96.8 MCH 32.4 MCHC 33.5 RDW 14.1 Plt Count 220 MPV 8.5 Sodium Potassium Chloride Carbon Dioxide Anion Gap BUN Creatinine Estimated GFR POC Glucose 115 H Random Glucose Calcium Blood Type A Positive Blood Type Recheck Not needed Antibody Screen Negative 06/19/18 04:03 WBC RBC Hgb Hct MCV MCH MCHC RDW Plt Count MPV Sodium 145 Potassium 3.9 Chloride 111 H Carbon Dioxide 26.4 Anion Gap 8 BUN 15 Creatinine 0.98 Estimated GFR 58 L POC Glucose Random Glucose 134 H Calcium 8.4 L Blood Type Blood Type Recheck Antibody Screen Assessment and Plan - Assessment (1) PAD (peripheral artery disease) Code(s): I73.9 - Peripheral vascular disease, unspecified Status: Acute - Plan POD#1 s/p L groin reconstruction 1. Normalize 2. D/C [place] 3. OOB/PT Discharge Planning: Sat/Sun
[2018-06-19] MEDS: Multivit/Folic Acid/Minerals Chewable Tablets PO SCH (08:41)
[2018-06-19] MEDS: Hydroxychloroquine 200 MG Tablet PO SCH ×2 (08:41→20:21)
[2018-06-19] MEDS: Senna/Docusate Sodium 8.6/50 MG Tablet PO SCH ×2 (08:41→20:21)
[2018-06-19] MEDS: Folic Acid 1 MG Tablet PO SCH (08:42)
[2018-06-19] MEDS: buPROPion 100 MG ER 12 HR Tablet PO SCH ×2 (08:42→20:21)
[2018-06-19] MEDS ORDERED: [UNRECOGNIZED DRUG - OTHER] PO SCH (09:00)
[2018-06-19] MEDS ORDERED: Non-Formulary Drug (Coenzyme Q10 [Coenzyme Q10] 100 MG) PO SCH (09:00)
[2018-06-19] MEDS: Enoxaparin Inj 40 MG/0.4 ML Syringe SQ SCH (11:41)
[2018-06-19] MEDS: Topiramate 100 MG Tablet PO PRN (20:33)
[2018-06-20] MEDS: Levothyroxine 112 MCG Tablet PO SCH (05:55)
[2018-06-20] MEDS: Multivit/Folic Acid/Minerals Chewable Tablets PO SCH (09:39)
[2018-06-20] MEDS: Morphine Sulfate Inj 2 MG/ML Vial IV.PUSH PRN ×2 (09:39→15:22)
[2018-06-20] MEDS: Hydroxychloroquine 200 MG Tablet PO SCH ×2 (09:39→21:29)
[2018-06-20] MEDS: Senna/Docusate Sodium 8.6/50 MG Tablet PO SCH ×2 (09:40→21:29)
[2018-06-20] MEDS: Folic Acid 1 MG Tablet PO SCH (09:40)
[2018-06-20] MEDS: buPROPion 100 MG ER 12 HR Tablet PO SCH ×2 (09:41→21:26)
--- NOTE | 2018-06-20 10:59 | P.PNVS ---
Subjective Post Op Day #: 2 Procedure: LEFT groin reconstruction Subjective/Hospital Course: Complain of left groin pain Able to ambulate last night Objective Vital Signs / I&O: Vital Signs 06/19/18 11:00 06/19/18 12:00 06/19/18 15:00 Temperature 98.1 F Pulse Rate 74 71 76 Respiratory Rate 16 16 16 Blood Pressure 142/91 H Pulse Oximetry 96 06/19/18 16:00 06/19/18 20:00 06/19/18 20:44 Temperature 98 F 98.2 F Pulse Rate 76 75 Respiratory Rate 16 20 Blood Pressure 124/69 137/80 Pulse Oximetry 96 96 96 06/20/18 00:00 06/20/18 04:00 06/20/18 07:00 Temperature Pulse Rate 76 67 71 Respiratory Rate 22 18 18 Blood Pressure 121/81 Pulse Oximetry 98 06/20/18 08:00 Temperature 98.0 F Pulse Rate 73 Respiratory Rate 20 Blood Pressure 122/73 Pulse Oximetry Intake & Output 06/19/18 06/20/18 06/20/18 18:59 06:59 18:59 Intake Total 750 / 750 720 / 720 Output Total 240 / 240 Balance 510 / 510 720 / 720 Weight 79.1 kg Intake: Oral 750 / 750 720 / 720 Output: Urine Amount (Catheter) 240 / 240 Indwelling Temp Sensing 240 / 240 Catheter Other: # Voids 2 3 Date of Last Bowel Movement 06/18/18 06/18/18 06/18/18 # Bowel Movements 0 0 Exam: Left groin clean dry intact, [place] VAC in place Multiphasic dorsalis pedis, posterior tibial signal Assessment and Plan - Assessment (1) PAD (peripheral artery disease) Code(s): I73.9 - Peripheral vascular disease, unspecified Status: Acute - Plan POD#2 s/p L groin reconstruction Out of bed We will keep 1 more day for pain control Possible discharge in a.m. Discharge Planning: Elise
[2018-06-20] MEDS: Enoxaparin Inj 40 MG/0.4 ML Syringe SQ SCH (13:21)
[2018-06-20] MEDS: Topiramate 100 MG Tablet PO PRN (23:41)
[2018-06-21] MEDS: Morphine Sulfate Inj 2 MG/ML Vial IV.PUSH PRN (02:55)
--- NOTE | 2018-06-21 07:10 | P.PNVS ---
Subjective Post Op Day #: 3 Procedure: LEFT groin reconstruction Subjective/Hospital Course: groin pain resolved Objective Vital Signs / I&O: Vital Signs 06/20/18 08:00 06/20/18 11:00 06/20/18 12:00 Temperature 98.0 F 98.5 F Pulse Rate 73 65 66 Respiratory Rate 20 18 20 Blood Pressure 122/73 125/68 Pulse Oximetry 96 06/20/18 15:00 06/20/18 16:00 06/20/18 20:00 Temperature 98.4 F 99.1 F Pulse Rate 81 81 70 Respiratory Rate 18 20 24 Blood Pressure 126/71 141/59 H Pulse Oximetry 97 97 06/21/18 00:00 06/21/18 00:25 06/21/18 04:00 Temperature 98.8 F 99.1 F Pulse Rate 83 83 Respiratory Rate 20 18 20 Blood Pressure 127/62 117/61 Pulse Oximetry 97 99 06/21/18 05:52 06/21/18 05:53 Temperature Pulse Rate Respiratory Rate 20 20 Blood Pressure Pulse Oximetry Intake & Output 06/20/18 06/21/18 06/21/18 18:59 06:59 18:59 Intake Total 720 / 720 Balance 720 / 720 Weight 78.7 kg Intake: Oral 720 / 720 Other: # Voids 4 Date of Last Bowel Movement 06/18/18 06/18/18 Exam: left groin CDI Multiphasic pedal signals BL Assessment and Plan - Assessment (1) PAD (peripheral artery disease) Code(s): I73.9 - Peripheral vascular disease, unspecified Status: Acute - Plan POD#3 s/p L groin reconstruction DC home today Discharge Planning: Elise
--- NOTE | 2018-06-21 07:22 | P.DS ---
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 Also complains c/o R LE claudication. Presents for L groin reconstruction and B LE angiogram. No changes in health that would preclude OR Procedure: LEFT groin reconstruction Significant Findings: Successful left groin reconstruction was performed Hospital Course: The patient underwent the left groin reconstruction operation successfully. Postoperatively, she was ambulating without any difficulties. She was tolerating diet. Her pain is was well controlled. She was discharged home with stable condition. Office will call on Friday for follow-up appointment. - Discharge Instructions Any questions or concerns: Call [facility] [phone] Discharge Plan - Discharge Disposition Patient Disposition: Discharge Home - Discharge Condition Condition: Good - Discharge Order Discharge Orders: Discharge Order (Routine); Ordered 06/21/18 Ordered By: Jame Bradford - Physicians Team Primary Care Provider: Rinku Avila Attending Provider: Jamari Mary - Rxs /Orders / Referrals /Forms Prescriptions: Continue aspirin 325 mg Tablet,Delayed Release (Dr/Ec) 325 mg PO DAILY baclofen 20 mg Tablet 20 mg PO TID PRN (Reason: Spasms) bupropion HCl 450 mg Tablet Extended Release 24 Hr 1 tab PO DAILY cholecalciferol (vitamin D3) [Vitamin D3] 2,000 unit Capsule 2,000 unit PO EVERY OTHER DAY coenzyme Q10 100 mg Capsule 100 mg PO DAILY docusate sodium [Colace] 100 mg Capsule 300 mg PO HS folic acid 400 mcg Tablet 0.4 mg PO DAILY hydroxychloroquine 200 mg Tablet 200 mg PO BID [id number] [MegaKrill] [id number] mg Capsule 1 tab PO DAILY levothyroxine 137 mcg Tablet 137 mcg PO DAILY metformin 500 mg Tablet 500 mg PO HS multivit with min-folic acid [Adult One Daily Multivitamin] 0.4 mg Tablet 1 tab PO DAILY oxycodone-acetaminophen 5-325 mg Tablet 1 tab PO Q4-6H PRN (Reason: Pain) pantoprazole 40 mg Tablet,Delayed Release (Dr/Ec) 40 mg PO DAILY simvastatin 20 mg Tablet 20 mg PO QPM topiramate [Topamax] 100 mg Tablet 100 mg PO BID valacyclovir 500 mg Tablet 500 mg PO DAILY valacyclovir 1 gram Tablet 1 tab PO DAILY PRN (Reason: SHINGLES) Referrals: Jamari Mary MD [Physician] - See Instructions (Appointment scheduled for 06/[address] [place] [address]) Rinku Avila MD, PhD [Primary Care Provider] - See Instructions - Discharge Instructions Patient Printed Instructions: Remote Superficial Femoral Artery Endarterectomy (DC)
[2018-06-21] MEDS: Levothyroxine 112 MCG Tablet PO SCH (08:22)
[2018-06-21] MEDS: Folic Acid 1 MG Tablet PO SCH (10:00)
[2018-06-21] MEDS: Multivit/Folic Acid/Minerals Chewable Tablets PO SCH (10:00)
[2018-06-21] MEDS: Hydroxychloroquine 200 MG Tablet PO SCH (10:01)
[2018-06-21] MEDS: Senna/Docusate Sodium 8.6/50 MG Tablet PO SCH (10:01)
[2018-06-21] MEDS: buPROPion 100 MG ER 12 HR Tablet PO SCH (10:02)
== END 2018-06-21 11:27 | disposition home or self-care (01) ==
LOC: HSDI 06-18 06:24 → HCVI 06-18 19:13 → HCPC 06-20 19:00
PROVIDERS: ADMIT Surgery; ATTEND Surgery